=== PATIENT | male | born 1940 | race Caucasian/White ===

== ENCOUNTER 2016-10-31 11:07 | Inpatient (IN) | payer MEDICARE, BC ==
[2016-10-31] MEDS ORDERED: Acetaminophen TAB* 325 MG PO PRN (15:05)
[2016-10-31] MEDS ORDERED: Magnesium Hydroxide LIQ* 30 ML UDC PO PRN (15:05)
[2016-10-31] MEDS ORDERED: Bisacodyl SUPP* 10 MG SUPP PR PRN (15:05)
[2016-10-31] MEDS ORDERED: Dextrose 50% Syringe 50 ML* 25 GM/50 ML SYRINGE IV PUSH PRN (15:18)
[2016-10-31] MEDS ORDERED: oxyCODONE/Acetamin 5/325 MG* TAB PO PRN (15:19)
[2016-10-31] MEDS: Insulin LISPRO* 1 UNITS UNIT SUBCUT SCH ×2 (17:16→20:51)
[2016-10-31] MEDS: Nystatin CREAM* 15 GM TUBE TOPICAL SCH (19:59)
[2016-10-31] MEDS: Docusate CAP* 100 MG PO SCH (20:50)
[2016-10-31] MEDS: Senna TAB PO SCH (20:50)
[2016-10-31] MEDS: Insulin GLARGINE(*) 1 UNITS UNIT SUBCUT SCH (20:50)
[2016-10-31] MEDS: Ferrous Sulfate TAB* 325 MG PO SCH (20:50)
[2016-10-31] MEDS: traZODone TAB* 100 MG PO SCH (20:50)
[2016-10-31] MEDS: Gabapentin CAP(*) 300 MG PO SCH (20:50)
[2016-10-31] MEDS: oxyCODONE/Acetamin 5/325 MG* TAB PO PRN (21:43)
--- NOTE | 2016-10-31 23:15 | HP ---
ADMISSION HISTORY AND PHYSICAL: DATE OF ADMISSION: 10/31/16 REASON FOR ADMISSION: Left hip fracture, status post total hip replacement. HISTORY OF PRESENT ILLNESS: Chris Bae is a 75-year-old white male. He has a medical history significant for diabetes mellitus. In addition, he has a history of nonalcoholic steatohepatitis. He takes chronic prednisone treatment for that. The patient has had difficulties with left hip pain for sometime. He had seen Dr. Benson and failed conservative treatment. It was decided he should be admitted and have a left total hip replacement done 11/19/16. On 10/22/16, he was at his own home. He was leaning forward, felt a sharp pain in his groin , lost his balance and fell on to a small table. Since that time, the pain got gradually worse. By the time he got to 10/25/16, the pain was unbearable. The patient came to the emergency room because of his unbearable pain. The patient had a CT of his abdomen and pelvis showing an acute left hip fracture. Dr. Gaines, the orthopedic surgeon, saw the patient. 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 The patient wished to proceed with a total hip, but unfortunately, he had to wait for his orthopedic surgeon to return. Meanwhile, the patient was noted to be thrombocytopenic and a Hematology consult was done with Dr. Navarro. Dr. Navarro noted that the thrombocytopenia was present since 2009 and that the patient had mild pancytopenia since 2012. 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 It was felt that the patient could have early myelodysplastic syndrome or that he might be pancytopenic secondary to cirrhosis. He felt that the patient could proceed with surgery. The patient was taken to the operating room on 10/29/16. He underwent a left total hip arthroplasty done by Dr. Benson. Postoperatively, the patient was put on Lovenox for DVT prophylaxis. He was noted to be anemic but again, he was anemic preoperatively as well. His platelet counts were stable. The patient was felt to have physical therapy and occupational therapy needs. He is now being admitted for inpatient rehab so that he might return to independent living. PAST MEDICAL HISTORY: In addition to the nonalcoholic hepatitis, the patient has a history of prostate cancer and he did receive Lupron in the past for this. He has a history of diabetes which he normally controls with glipizide and once daily injection of Victoza. He has a history of sleep apnea and obesity. 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 He has a history of depression, gastroesophageal reflux disease, and obesity. He has undergone a rotator cuff repair and he also had a pituitary adenoma, which was resected in 2007. CURRENT MEDICATIONS: Include: 1. Prozac 20 mg daily. 2. He is on allopurinol 200 mg daily. 3. Amlodipine 5 mg daily. 4. Lovenox 40 mg subcutaneously daily. 5. Neurontin 300 mg 3 times a day. 6. Lantus insulin 16 units at bedtime. 7. Humalog sliding scale coverage. 8. Synthroid. 9. Prilosec. 10. Prednisone. 11. Senokot. 12. Trazodone. ALLERGIES: The patient has no known drug allergies. SOCIAL HISTORY: The patient is a nonsmoker, rare drinker. He lives with his in a ranch house. There are 2 steps to enter, but he does have a ramp. His is his healthcare proxy. REVIEW OF SYSTEMS: The patient reports no current shortness of breath or chest pain. PHYSICAL EXAMINATION VITAL SIGNS: The patient's temperature is 98.1, blood pressure is 122/43, pulse 86, respirations 18. HEENT: Extraocular movements are intact. Tongue is midline. NECK: Supple. LUNGS: Sound clear to auscultation bilaterally. HEART: Sounds are regular. S1 and S2 are audible. ABDOMEN: Soft and nontender. EXTREMITIES: Left hip has a wound, which is clean and dry. Trace edema at the left leg. Peripheral pulses are intact. NEUROLOGIC: He has diminished sensation in his feet. Muscle strength is about 4/5 in the left leg. Right leg and upper extremities 5/5. He is awake, alert, and oriented. FUNCTIONAL EXAM: He transfers with min to mod assist. ASSESSMENT: Left hip fracture. PLAN: We are going to integrate him into a comprehensive and therapeutic rehab program with the following goals: 1. Physical Therapy will work with the patient. They are going to work on functional transfer training, ambulation training with a walker. 2. Occupational Therapy will see the patient, work on his activities of daily living including toileting and toilet transfers. 3. Lovenox and probably Coumadin for DVT prophylaxis. 4. Adequate analgesia. 5. For his HUNT, we will continue prednisone 1 mg daily. 6. His bowels will be regulated. 7. Continue Synthroid for hypothyroidism. 8. For diabetes, we will do fingersticks 4 times a day with appropriate insulin coverage. We will continue his Lantus. His is going to bring in his Victoza from home. 9. For depression, we will continue Prozac daily. 10. Pancytopenia: We will continue to consult Hematology as needed. 11. Hypertension: We will continue his amlodipine for now. We may have to add in his enalapril. 12. Family training as appropriate. 13. Home with appropriate services. ESTIMATED LENGTH OF STAY: 10 to 12 days. [id number]/[facility] #: [id number] SOL
[2016-11-01] MEDS: oxyCODONE/Acetamin 5/325 MG* TAB PO PRN ×5 (02:49→21:14)
[2016-11-01] MEDS: Omeprazole CAP* 20 MG PO SCH (06:08)
[2016-11-01] MEDS: Levothyroxine TAB* 150 MCG TAB PO SCH (06:08)
[2016-11-01 06:21] LABS: Hematocrit 26 % (42-52); Hemoglobin 8.5 g/dl (14.0-18.0); Mean Corpuscular HGB Conc 33 g/dl (31-36); Mean Corpuscular Hemoglobin 31 pg (27-31); Mean Corpuscular Volume 94 fL (80-94); Mean Platelet Volume 8 um3 (7.4-10.4); Red Blood Count 2.72 10^6/ul (4.0-5.4); Red Cell Distribution Width 16 % (10.5-15); White Blood Count 3.8 10^3/ul (3.5-10.8)
[2016-11-01 06:31] LABS: Comments Flag Yes
[2016-11-01 06:32] LABS: Add Diff/Slide Review? Slide Review Added
[2016-11-01 06:34] LABS: Albumin 2.7 g/dL (3.2-5.2); BUN/Creatinine Ratio 21.3 (8-20); Calcium 8.2 mg/dL (8.6-10.3); EGFR African American 62.8 (>60); EGFR Non-African American 48.9 (>60); Globulin 2.4 g/dL (2-4); Potassium 4.2 mmol/L (3.5-5.0); Total Bilirubin 0.5 mg/dL (0.2-1.0); Total Protein 5.1 g/dL (6.4-8.9)
[2016-11-01 06:58] LABS: Polychromasia 1+
[2016-11-01] MEDS: Ferrous Sulfate TAB* 325 MG PO SCH ×2 (08:09→21:15)
[2016-11-01] MEDS: FLUoxetine CAP* 20 MG PO SCH (08:09)
[2016-11-01] MEDS: Docusate CAP* 100 MG PO SCH ×2 (08:09→21:14)
[2016-11-01] MEDS: Gabapentin CAP(*) 300 MG PO SCH ×3 (08:09→21:15)
[2016-11-01] MEDS: predniSONE TAB* 1 MG PO SCH (08:09)
[2016-11-01] MEDS: Allopurinol TAB* 100 MG PO SCH (08:09)
[2016-11-01] MEDS: amLODIPine TAB* 5 MG PO SCH (08:09)
[2016-11-01] MEDS: Nystatin CREAM* 15 GM TUBE TOPICAL SCH ×2 (08:11→21:16)
[2016-11-01] MEDS: Insulin LISPRO* 1 UNITS UNIT SUBCUT SCH ×4 (08:11→21:16)
[2016-11-01] MEDS: Enoxaparin(*) 40 MG/0.4 ML SYR SUBCUT SCH (08:12)
--- NOTE | 2016-11-01 12:46 | PMRUTEAM ---
PMRU: Goals Current Status: Nursing: Current Status Skin Deviations [L abdomenal Rash folds] Skin Deviations [Left Hip] Incision Skin Deviations [Coccyx] Other Skin Deviation Description [L open skin along abd. fold to L side abdomenal folds] Skin Deviation Description [ blanchable redness; intact Coccyx] Physical Therapy: Current Status Bed Mobility Assistance Supervision,Contact Guard Assist Transfer Moblility Assistance Supervision Transfer/Bed Mobility Rolling Walker Recommended Devices Ambulation Assistance Supervision Ambulation Assistive Devices Rolling Walker Number of Feet Patient 12' Ambulated Stairs Assistance NT Stairs Recommended Devices Straight Cane,One Rail Number of Stairs 2 Rec Therapy: Current Status Summary of Assessment and Pt. was a new admission - open to conversation. Clinical Impression Pleasant, cooperative, and talkative throughout. Pt. identifies with leisure activities and when asked if he enjoys his life, his response was " most of the time". Pt. was open to continued visits. Treatment Goals Pt. will engage in leisure activities while on the unit. Treatment Plan Provide RT services and encourage involvement. Social Work: Current Status Discharge Plan return home with home care svs and family support Potential for Family Training pt's is involved and supportive Anticipated Discharge Home Destination Discharge With home care svs and family support OCCUPATIONAL THERAPY: Upper body dressing set up, lower body dressing mod assist , toileting max asssit, grooming set up, feeding independent, toilet transfers mod assist Goals: Physical Therapy: Updated Goals Transfer/Bed Mobility Rolling Walker Independent Recommended Devices Ambulation Independent 150 feet Nutrition: Goals Intervention Goals 1. adequate po intake to support post-op healing without contributing to excess wt gain 2. adequate glycemic control in setting of low- dose steroid tx 3. return of normal bowel pattern; no c/o constipation (or diarrhea) 4. renal labs at baseline per hx CKD stg 3b Social Work: Goals Discharge Plan return home with home care svs and family support Potential for Family Training pt's is involved and supportive Anticipated Discharge Home Destination Discharge With home care svs and family support OCCUPATIONAL THERAPY: Modified Independent ADLs Care Plan: Care Plan Coping/Psych-Improve/Maintain Start: 11/01/16 00:16 Freq: QSHIFT Status: Active Target: Activity Type Activity Date Activity User E-Sign Co-Sign Detail Recorded Client Recorded Date Recorded By Document 11/01/16 00:16 [id number] 11/01/16 00:19 [id number] 11/01/16 00:16 PMRU Outcome: Coping/Psychosocial Coping Outcome/Goals Verbalization of Acceptance of Rehab Admit Verbalization of Sense of Control Over Health Status Utilization of Appropriate Problem Solving Techniques Willingness to Participate in Treatment Plan and Basic Needs Utilization of Available Support Systems Absence of Destructive Behavior to Self/Others Psychosocial Outcome/Goals Maintain/ Improve Emotional Health Demonstrates Knowledge of Healthy Coping Mechanisms Available Cooperate/ Participate in Plan DVT Prophylaxis- Improve/Maintain Start: 11/01/16 00:16 Freq: QSHIFT Status: Active Target: Activity Type Activity Date Activity User E-Sign Co-Sign Detail Recorded Client Recorded Date Recorded By Document 11/01/16 00:16 [id number] 11/01/16 00: [id number] 11/01/16 00:16 PMRU Outcome: DVT Prophylaxis Outcome/Goals Remains Free of DVT TEDS Stockings on Every AM, Off at HS Discharge Planning - Improve/Maintain Start: 11/01/16 00:16 Freq: QSHIFT Status: Active Target: Activity Type Activity Date Activity User E-Sign Co-Sign Detail Recorded Client Recorded Date Recorded By Document 11/01/16 00:16 [id number] 11/01/16 00: [id number] 11/01/16 00:16 PMRU Outcome: Discharge Planning Update Patient Family No Outcome/Goals Demonstrates Understanding of Discharge Plan Education-Improve/Maintain Start: 11/01/16 00:16 Freq: QSHIFT Status: Active Target: Activity Type Activity Date Activity User E-Sign Co-Sign Detail Recorded Client Recorded Date Recorded By Document 11/01/16 00:16 [id number] 11/01/16 00: [id number] 11/01/16 00:16 PMRU Outcome: Education Outcome/Goals Demonstrate/ Verbalize Understanding of Written Discharge Instructions Encourage Questions Medication Administration Start: 11/01/16 00:16 Freq: QSHIFT Status: Active Target: Activity Type Activity Date Activity User E-Sign Co-Sign Detail Recorded Client Recorded Date Recorded By Document 11/01/16 00:16 [id number] 11/01/16 00:19 [id number] 11/01/16 00:16 PMRU Outcome: Medication Administration Assess Patient Knowledge/Teach Med No Education for all Meds Outcome/Goals Patient Independent with Medication Administration at Home Demonstrates Lovenox Administration Is Patient Going Home on Lovenox? No Metabolic Status- Improve/Maintain Start: 11/01/16 00:16 Freq: QSHIFT Status: Active Target: Activity Type Activity Date Activity User E-Sign Co-Sign Detail Recorded Client Recorded Date Recorded By Document 11/01/16 00:16 [id number] 11/01/16 00:19 [id number] 11/01/16 00:16 PMRU Outcome: Metabolic Status Have Fingersticks Been Ordered Yes Fingerstick Order Frequency AC & HS Outcome/Goals Maintain/ Improve Metabolic Status Demonstrate Knowledge of Prevention/ Treatment of Metabolic Imbalances Mobility- Improve/Maintain Start: 10/31/16 14:38 Freq: QSHIFT Status: Active Target: Activity Type Activity Date Activity User E-Sign Co-Sign Detail Recorded Client Recorded Date Recorded By Document 11/01/16 12:11 [id number] 11/01/16 12:12 [id number] 11/01/16 12:11 PMRU Outcome: Mobility Physical Therapy Evaluation and Yes Treatment Activity OOB with Assistance Yes WBAT Yes Device Yes Assistance Yes Patient to be seen 5x/wk for 60-120 min/ Therex day for: Mobility Training Gait Training Balance Outcome/Goals Maintain/ Achieve Baseline Mobility Status Improve Mobility Status Demonstrates Proper Use of Assistive Devices Free from Complications of Immobility Progression Toward Outcome/Goals Progressing Bed Mobility Yes: Independent Transfers Yes: Modified Independent with RW Gait x ft Yes: Modified Independent 150 ' with RW Up/Down Stairs Yes: Independent 2 steps 1 rail, cane With HEP Yes: Independent Neurological- Improve/Maintain Start: 11/01/16 00:16 Freq: QSHIFT Status: Active Target: Activity Type Activity Date Activity User E-Sign Co-Sign Detail Recorded Client Recorded Date Recorded By Document 11/01/16 00:16 [id number] 11/01/16 00:19 [id number] 11/01/16 00:16 PMRU Outcome: Neurological Weakness/Aphasia Weakness Left Side Outcome/Goals Maintain/ Achieve Baseline Neurological Status Maintain/ Improve Strength/ROM Pain/Comfort- Improve/Maintain Start: 11/01/16 00:16 Freq: QSHIFT Status: Active Target: Activity Type Activity Date Activity User E-Sign Co-Sign Detail Recorded Client Recorded Date Recorded By Document 11/01/16 00:16 [id number] 11/01/16 00:19 [id number] 11/01/16 00:16 PMRU Outcome: Pain/Comfort Outcome/Goals Demonstrates Knowledge and Use of Available Comfort Measures Achieves Acceptable Comfort/Pain Level as Determined by Patient/Condit Maintain Comfort Level Allowing Patient to Fully Participate in Rehab Respiratory - Improve/Maintain Start: 11/01/16 00:16 Freq: QSHIFT Status: Active Target: Activity Type Activity Date Activity User E-Sign Co-Sign Detail Recorded Client Recorded Date Recorded By Document 11/01/16 00:16 [id number] 11/01/16 00:19 [id number] 11/01/16 00:16 PMRU Outcome: Respiratory Does Patient Have a Trach No Outcome/Goals Maintain/ Improve O2 Sat per MD Order Medicine Note: Length of Stay: 1 week Anticipated Discharge Destination: Home Tentative Discharge Date: November 08, 2015 Discharged to: Home
[2016-11-01] MEDS: Senna TAB PO SCH (21:15)
[2016-11-01] MEDS: oxyCODONE SR TAB(*) 20 MG TAB.SR PO SCH (21:15)
[2016-11-01] MEDS: traZODone TAB* 100 MG PO SCH (21:15)
[2016-11-01] MEDS: Insulin GLARGINE(*) 1 UNITS UNIT SUBCUT SCH (21:16)
[2016-11-02] MEDS: oxyCODONE/Acetamin 5/325 MG* TAB PO PRN ×4 (01:18→19:20)
[2016-11-02] MEDS: Omeprazole CAP* 20 MG PO SCH (06:29)
[2016-11-02] MEDS: Levothyroxine TAB* 150 MCG TAB PO SCH (06:29)
[2016-11-02] MEDS: predniSONE TAB* 1 MG PO SCH (07:51)
[2016-11-02] MEDS: Gabapentin CAP(*) 300 MG PO SCH ×3 (07:51→20:54)
[2016-11-02] MEDS: amLODIPine TAB* 5 MG PO SCH (07:51)
[2016-11-02] MEDS: FLUoxetine CAP* 20 MG PO SCH (07:51)
[2016-11-02] MEDS: Docusate CAP* 100 MG PO SCH ×2 (07:51→20:54)
[2016-11-02] MEDS: Allopurinol TAB* 100 MG PO SCH (07:52)
[2016-11-02] MEDS: Ferrous Sulfate TAB* 325 MG PO SCH ×2 (07:52→20:53)
[2016-11-02] MEDS: oxyCODONE SR TAB(*) 20 MG TAB.SR PO SCH ×2 (07:53→20:54)
[2016-11-02] MEDS: Insulin LISPRO* 1 UNITS UNIT SUBCUT SCH ×4 (07:54→20:55)
[2016-11-02] MEDS: Enoxaparin(*) 40 MG/0.4 ML SYR SUBCUT SCH (07:55)
[2016-11-02] MEDS: Nystatin CREAM* 15 GM TUBE TOPICAL SCH ×2 (09:20→20:55)
[2016-11-02] MEDS: Senna TAB PO SCH (20:54)
[2016-11-02] MEDS: traZODone TAB* 100 MG PO SCH (20:55)
[2016-11-03] MEDS: oxyCODONE/Acetamin 5/325 MG* TAB PO PRN ×4 (05:26→20:44)
[2016-11-03] MEDS: Omeprazole CAP* 20 MG PO SCH (05:26)
[2016-11-03] MEDS: Levothyroxine TAB* 150 MCG TAB PO SCH (05:26)
[2016-11-03 08:00] LABS: Hematocrit 25 % (42-52); Hemoglobin 8.2 g/dl (14.0-18.0); Mean Corpuscular HGB Conc 33 g/dl (31-36); Mean Corpuscular Hemoglobin 31 pg (27-31); Mean Corpuscular Volume 94 fL (80-94); Mean Platelet Volume 8 um3 (7.4-10.4); Red Blood Count 2.63 10^6/ul (4.0-5.4); Red Cell Distribution Width 16 % (10.5-15)
[2016-11-03 08:01] LABS: Comments Flag Yes
[2016-11-03 08:02] LABS: White Blood Count 3.4 10^3/ul (3.5-10.8)
[2016-11-03] MEDS: Ferrous Sulfate TAB* 325 MG PO SCH ×2 (08:49→20:43)
[2016-11-03] MEDS: amLODIPine TAB* 5 MG PO SCH (08:50)
[2016-11-03] MEDS: Enoxaparin(*) 40 MG/0.4 ML SYR SUBCUT SCH (08:50)
[2016-11-03] MEDS: Gabapentin CAP(*) 300 MG PO SCH ×3 (08:50→20:44)
[2016-11-03] MEDS: FLUoxetine CAP* 20 MG PO SCH (08:50)
[2016-11-03] MEDS: Docusate CAP* 100 MG PO SCH ×2 (08:50→20:44)
[2016-11-03] MEDS: Allopurinol TAB* 100 MG PO SCH (08:51)
[2016-11-03] MEDS: PTO: Liraglutide (NF) 18 MG/3 ML SUBCUT SCH (08:51)
[2016-11-03] MEDS: glyBURIDE TAB* 2.5 MG PO SCH ×2 (08:51→20:43)
[2016-11-03] MEDS: oxyCODONE SR TAB(*) 20 MG TAB.SR PO SCH ×2 (08:54→20:45)
[2016-11-03] MEDS: predniSONE TAB* 1 MG PO SCH (08:55)
[2016-11-03] MEDS: Nystatin CREAM* 15 GM TUBE TOPICAL SCH ×2 (08:55→20:45)
[2016-11-03] MEDS: Senna TAB PO SCH (20:44)
[2016-11-03] MEDS: traZODone TAB* 100 MG PO SCH (20:45)
[2016-11-04] MEDS: Levothyroxine TAB* 150 MCG TAB PO SCH (05:47)
[2016-11-04] MEDS: oxyCODONE/Acetamin 5/325 MG* TAB PO PRN ×4 (05:47→18:30)
[2016-11-04] MEDS: Omeprazole CAP* 20 MG PO SCH (05:48)
[2016-11-04] MEDS: Gabapentin CAP(*) 300 MG PO SCH ×3 (08:04→20:58)
[2016-11-04] MEDS: Ferrous Sulfate TAB* 325 MG PO SCH ×2 (08:04→20:57)
[2016-11-04] MEDS: FLUoxetine CAP* 20 MG PO SCH (08:04)
[2016-11-04] MEDS: predniSONE TAB* 1 MG PO SCH (08:04)
[2016-11-04] MEDS: Docusate CAP* 100 MG PO SCH ×2 (08:05→20:58)
[2016-11-04] MEDS: amLODIPine TAB* 5 MG PO SCH (08:05)
[2016-11-04] MEDS: glyBURIDE TAB* 2.5 MG PO SCH (08:05)
[2016-11-04] MEDS: oxyCODONE SR TAB(*) 20 MG TAB.SR PO SCH ×2 (08:05→20:57)
[2016-11-04] MEDS: Allopurinol TAB* 100 MG PO SCH (08:05)
[2016-11-04] MEDS: Enoxaparin(*) 40 MG/0.4 ML SYR SUBCUT SCH (08:07)
[2016-11-04] MEDS: PTO: Liraglutide (NF) 18 MG/3 ML SUBCUT SCH (08:09)
[2016-11-04] MEDS: Nystatin CREAM* 15 GM TUBE TOPICAL SCH ×2 (08:44→22:29)
[2016-11-04] MEDS ORDERED: glyBURIDE TAB* 5 MG PO SCH (16:06)
[2016-11-04] MEDS: glyBURIDE TAB* 5 MG PO SCH (17:00)
[2016-11-04] MEDS: traZODone TAB* 100 MG PO SCH (20:57)
[2016-11-04] MEDS: Senna TAB PO SCH (20:58)
[2016-11-05] MEDS: Levothyroxine TAB* 150 MCG TAB PO SCH (06:23)
[2016-11-05] MEDS: Omeprazole CAP* 20 MG PO SCH (06:23)
[2016-11-05] MEDS: Ferrous Sulfate TAB* 325 MG PO SCH ×2 (08:10→21:47)
[2016-11-05] MEDS: amLODIPine TAB* 5 MG PO SCH (08:10)
[2016-11-05] MEDS: oxyCODONE/Acetamin 5/325 MG* TAB PO PRN ×4 (08:10→23:02)
[2016-11-05] MEDS: glyBURIDE TAB* 5 MG PO SCH ×2 (08:11→17:17)
[2016-11-05] MEDS: Gabapentin CAP(*) 300 MG PO SCH ×3 (08:11→21:47)
[2016-11-05] MEDS: Docusate CAP* 100 MG PO SCH ×2 (08:11→21:48)
[2016-11-05] MEDS: predniSONE TAB* 1 MG PO SCH (08:11)
[2016-11-05] MEDS: FLUoxetine CAP* 20 MG PO SCH (08:11)
[2016-11-05] MEDS: Allopurinol TAB* 100 MG PO SCH (08:12)
[2016-11-05] MEDS: oxyCODONE SR TAB(*) 20 MG TAB.SR PO SCH ×2 (08:12→21:28)
[2016-11-05] MEDS: PTO: Liraglutide (NF) 18 MG/3 ML SUBCUT SCH (08:14)
[2016-11-05] MEDS: Enoxaparin(*) 40 MG/0.4 ML SYR SUBCUT SCH (09:09)
[2016-11-05] MEDS: Nystatin CREAM* 15 GM TUBE TOPICAL SCH ×2 (09:09→22:02)
[2016-11-05] MEDS ORDERED: Senna TAB PO PRN (15:57)
[2016-11-05] MEDS: traZODone TAB* 100 MG PO SCH (21:47)
[2016-11-06] MEDS: Levothyroxine TAB* 150 MCG TAB PO SCH (06:26)
[2016-11-06] MEDS: oxyCODONE/Acetamin 5/325 MG* TAB PO PRN ×3 (06:26→17:35)
[2016-11-06] MEDS: Omeprazole CAP* 20 MG PO SCH (06:26)
[2016-11-06] MEDS: Polyethylene Glycol 3350* 17 GM PACKET PO SCH (08:09)
[2016-11-06] MEDS: Ferrous Sulfate TAB* 325 MG PO SCH ×2 (08:10→21:29)
[2016-11-06] MEDS: Aspirin EC TAB* 325 MG PO SCH (08:10)
[2016-11-06] MEDS: Docusate CAP* 100 MG PO SCH ×2 (08:10→20:43)
[2016-11-06] MEDS: amLODIPine TAB* 5 MG PO SCH (08:11)
[2016-11-06] MEDS: Gabapentin CAP(*) 300 MG PO SCH ×3 (08:11→20:43)
[2016-11-06] MEDS: glyBURIDE TAB* 5 MG PO SCH (08:11)
[2016-11-06] MEDS: FLUoxetine CAP* 20 MG PO SCH (08:11)
[2016-11-06] MEDS: Allopurinol TAB* 100 MG PO SCH (08:11)
[2016-11-06] MEDS: predniSONE TAB* 1 MG PO SCH (08:11)
[2016-11-06] MEDS: oxyCODONE SR TAB(*) 20 MG TAB.SR PO SCH ×2 (08:12→20:43)
[2016-11-06] MEDS: Enoxaparin(*) 40 MG/0.4 ML SYR SUBCUT SCH (08:14)
[2016-11-06] MEDS: PTO: Liraglutide (NF) 18 MG/3 ML SUBCUT SCH (08:16)
[2016-11-06] MEDS: Nystatin CREAM* 15 GM TUBE TOPICAL SCH ×2 (09:49→20:44)
[2016-11-06] MEDS ORDERED: glyBURIDE TAB* 2.5 MG PO SCH (14:56)
[2016-11-06] MEDS: traZODone TAB* 100 MG PO SCH (20:43)
[2016-11-07] MEDS: oxyCODONE/Acetamin 5/325 MG* TAB PO PRN ×3 (05:20→13:31)
[2016-11-07] MEDS: Levothyroxine TAB* 150 MCG TAB PO SCH (05:21)
[2016-11-07] MEDS: Omeprazole CAP* 20 MG PO SCH (05:21)
[2016-11-07 05:45] VITALS: BP 126/61
[2016-11-07 07:51] LABS: Hematocrit 24 % (42-52); Mean Corpuscular HGB Conc 33 g/dl (31-36); Mean Corpuscular Hemoglobin 31 pg (27-31); Mean Corpuscular Volume 94 fL (80-94); Mean Platelet Volume 7 um3 (7.4-10.4); Red Blood Count 2.58 10^6/ul (4.0-5.4); Red Cell Distribution Width 16 % (10.5-15); White Blood Count 3.6 10^3/ul (3.5-10.8)
[2016-11-07] MEDS: Polyethylene Glycol 3350* 17 GM PACKET PO SCH (07:51)
[2016-11-07] MEDS: FLUoxetine CAP* 20 MG PO SCH (07:53)
[2016-11-07] MEDS: Ferrous Sulfate TAB* 325 MG PO SCH (07:54)
[2016-11-07] MEDS: Docusate CAP* 100 MG PO SCH (07:54)
[2016-11-07] MEDS: Aspirin EC TAB* 325 MG PO SCH (07:54)
[2016-11-07] MEDS: predniSONE TAB* 1 MG PO SCH (07:54)
[2016-11-07] MEDS: oxyCODONE SR TAB(*) 20 MG TAB.SR PO SCH (07:54)
[2016-11-07] MEDS: Gabapentin CAP(*) 300 MG PO SCH (07:54)
[2016-11-07] MEDS: Allopurinol TAB* 100 MG PO SCH (07:54)
[2016-11-07] MEDS: amLODIPine TAB* 5 MG PO SCH (07:54)
[2016-11-07] MEDS: Nystatin CREAM* 15 GM TUBE TOPICAL SCH (07:56)
[2016-11-07] MEDS: Enoxaparin(*) 40 MG/0.4 ML SYR SUBCUT SCH (07:56)
[2016-11-07] MEDS: PTO: Liraglutide (NF) 18 MG/3 ML SUBCUT SCH (07:58)
[2016-11-07] MEDS ORDERED: glipiZIDE TAB* 5 MG PO SCH (08:00)
--- NOTE | 2016-11-08 19:30 | DS ---
DISCHARGE SUMMARY: DATE OF ADMISSION: 10/31/16 DATE OF DISCHARGE: 11/07/16 DISCHARGE DIAGNOSES: 1. Left hip fracture. 2. Status post total hip replacement. 3. Nonalcoholic steatohepatitis. 4. Diabetes mellitus. 5. Prostate cancer. 6. Gastroesophageal reflux disease. 7. Depression. 8. Pancytopenia. 9. Pituitary adenoma, remote. HISTORY OF PRESENT ILLNESS: For a complete history of the events leading up to his rehab stay, please see the history and physical dictated by me on 10/31/16. While on the rehab unit, the patient's hemoglobin and hematocrit remained stable in the 8/24 range. He was maintained on Lovenox for DVT prophylaxis. His renal function appeared to be stable. The patient was restarted on normal diabetes medications, Victoza and glipizide. Initially, he was given glyburide but this was changed back to glipizide. The patient's blood sugars were in good control. The patient was seen by both physical and occupational therapy, and made good gains in both disciplines. With physical therapy at the time of admission, the patient required min assist for transfers. He was able to ambulate about 5 feet with contact guard. With occupational therapy, he was min assist for toileting and toilet transfers. By the time of discharge, the patient was independently ambulating a 150 feet, independently going up and down 5 steps, independent with his activities of daily living. The patient was discharge home on 11/07/16. DISCHARGE DIET: Consistent carbohydrate. DISCHARGE MEDICATIONS: 1. Victoza 1.2 mg subcutaneously daily. 2. OxyContin 20 mg every 12 hours for 2 weeks. 3. Percocet 1 to 2 tablets every 4 hours as needed. 4. Prednisone 1 mg orally daily. 5. Trazodone 100 mg at bedtime. 6. Aspirin 325 mg daily for 2 weeks. 7. Glipizide 2.5 mg twice a day. 8. Amlodipine 5 mg daily. 9. Zantac 150 mg twice a day. 10. [place]-3 fatty acids 1200 mg twice daily. 11. Neurontin 300 mg 3 times a day. 12. Synthroid 150 mcg daily. 13. Prozac 20 mg daily. 14. Vitamin B12 250 mcg daily. SERVICES AFTER DISCHARGE: Through [facility] He will have home nursing, home physical therapy, and a home health aide. His ilan can be removed on November 11. FOLLOWUP: Follow up with Dr. Kentrell Benson in one month. He will also follow up with Dr. Jose Burgos from the [place] system. CC: Dr. Jose Burgos* [id number]/[facility] #: [id number] MTDD
== END 2016-11-07 13:30 | disposition home or self-care (01) | DRG 560 ==
LOC: PMRU 13:00
PROVIDERS: ADMIT Physical Medicine & Rehabilitation; ATTEND Physical Medicine & Rehabilitation
PROC: F07Z5ZZ Bed Mobility Treatment (ICD-10-PCS; principal; 2016-10-31)
PROC: F07Z8ZZ Transfer Training Treatment (ICD-10-PCS; 2016-10-31)
PROC: F07Z9ZZ Gait Training/Functional Ambulation Treatment (ICD-10-PCS; 2016-10-31)
PROC: F08Z0ZZ Bathing/Showering Techniques Treatment (ICD-10-PCS; 2016-10-31)
PROC: F08Z1ZZ Dressing Techniques Treatment (ICD-10-PCS; 2016-10-31)
DX: S72.002D Fracture of unspecified part of neck of left femur, subsequent encounter for closed fracture with routine healing (principal); D61.818 Other pancytopenia; E11.22 Type 2 diabetes mellitus with diabetic chronic kidney disease; E11.42 Type 2 diabetes mellitus with diabetic polyneuropathy; W18.30XD Fall on same level, unspecified, subsequent encounter; K75.89 Other specified inflammatory liver diseases; K21.9 Gastro-esophageal reflux disease without esophagitis; F32.9 Major depressive disorder, single episode, unspecified; D35.2 Benign neoplasm of pituitary gland; I12.9 Hypertensive chronic kidney disease with stage 1 through stage 4 chronic kidney disease, or unspecified chronic kidney disease; N18.2 Chronic kidney disease, stage 2 (mild); Z85.46 Personal history of malignant neoplasm of prostate; Z79.84 Long term (current) use of oral hypoglycemic drugs; Z96.642 Presence of left artificial hip joint
CPT/HCPCS: 36415; 80053; 85025; 85027; A9270-GY; J1650

== ENCOUNTER 2017-08-28 07:02 | Day surgery (SDC) | payer MEDICARE, BC ==
[~2017-08-28 07:02] MED LIST: Buffered Lidocaine 0.9% SYRIN* 5 ML/SYR SYRINGE INTRADERM ONE; Bupivacaine 0.25% SDV* 30 ML ONE
[2017-08-28] MEDS ORDERED: Buffered Lidocaine 0.9% SYRIN* 5 ML/SYR SYRINGE ONE (07:36)
[2017-08-28] MEDS ORDERED: fentaNYL* 50 MCG/ML 2 ML VIAL (100 MCG VIAL) ONE (07:52)
[2017-08-28] MEDS ORDERED: Ketorolac INJ* 30 MG/ML 1 ML VIAL ONE (07:52)
[2017-08-28] MEDS ORDERED: Dexamethasone IV* 4 MG/ML 1 ML (4 MG) ONE (07:52)
[2017-08-28] MEDS ORDERED: Midazolam* 1 MG/ML 5 ML VIAL (5 MG) ONE (07:54)
[2017-08-28] MEDS ORDERED: Bupivacaine 0.25% SDV* 30 ML ONE (08:15)
[2017-08-28] MEDS ORDERED: fentaNYL* 50 MCG/ML 2 ML VIAL (100 MCG VIAL) IV PRN (08:19)
[2017-08-28] MEDS ORDERED: oxyCODONE/Acetamin 5/325 MG* TAB PO PRN (08:19)
[2017-08-28] MEDS ORDERED: DiMENhydriNATE IV* 50 MG/ML VIAL IV PUSH PRN (08:19)
[2017-08-28] MEDS ORDERED: KETAMINE HCL* 50 MG/ML 10 ML VIAL ONE (08:30)
[2017-08-28] MEDS ORDERED: ceFAZolin 2 GM PREMIX (*) 2 GM/50 ML BAG IVPB ONE (08:34)
[2017-08-28] MEDS ORDERED: ceFAZolin 1 GM VIAL(*) ONE (08:36)
[2017-08-28] MEDS ORDERED: Propofol* 10 MG/ML 20 ML BTL IV PUSH ONE (08:48)
[2017-08-28 10:30] VITALS: BP 125/66
--- NOTE | 2017-08-29 01:10 | OP ---
OPERATIVE REPORT: DATE OF OPERATION: 08/28/17 - [place] DATE OF : 38 SURGEON: Carlo Trent MD CERTIFIED SOCIAL WORKERS IN HEALTH CARE: YARELIS Collins An medical library assistant was needed for the entirety of the procedure to aid in positioning of the arm and retraction. ANESTHESIOLOGIST: Dr. Powell. ANESTHESIA: Local MAC. PRE-OP DIAGNOSIS: Right carpal and cubital tunnel syndrome. POST-OP DIAGNOSIS: Right carpal and cubital tunnel syndrome. OPERATIVE PROCEDURE: 1. Right open carpal tunnel release. 2. Right in situ cubital tunnel release. INDICATIONS: Chris has had progressive disease. He has atrophy. He has constant numbness and tingling. It is really bothering him, having the lack of sensation in the night time symptoms and he is looking to see what relief he can get. He understands he is likely to have incomplete relief given the severity of his disease. ESTIMATED BLOOD LOSS: 5 mL. COMPLICATIONS: None. FINDINGS: As expected. DESCRIPTION OF PROCEDURE: Chris was seen in the preoperative holding area. The correct site, side and procedure were identified. We came back to the operating room where he got some anesthesia and I infiltrated the operative areas with 0.25% plain Marcaine. We then prepped and draped the arm in the usual fashion and time- out was performed. I began by exsanguinating the arm with Esmarch and inflating the tourniquet to 250 mmHg. A standard 2 to 3 cm longitudinal incision was made in the typical location for an open carpal release. Dissection was carried down through the subcutaneous tissue in the palmar fascia. The transverse carpal ligament was visualized and released just off the radial aspect of the hook of the hamate. I completed the release distally. I then came proximally where I released the fascia and subcutaneous tissue superficial to the ligament. I then placed a Cristiana retractor, and under direct visualization, released the remainder of the transverse carpal ligament and distal antebrachial fascia with the tenotomy scissors. I then checked the release and everything looked good, so we irrigated out the wound. The skin was closed with 4-0 nylon suture. I then turned our attention to the elbow. A curvilinear incision was made centered over the Cross's ligament and extending proximally and distally in line with the ulnar nerve. Dissection was carried down through subcutaneous tissue and once the fascial plane was developed, I went ahead and started my release just distal to Cross's ligament. I opened up the superficial FCU fascia. I then split the two heads of the FCU and then released a very prominent subfascial layer to expose the nerve. I then came proximally and released Cross's ligament. I then came proximal to release the fascia overlying the ulnar nerve. I also released the intermuscular septum. The release was carried out well past 8 cm proximal to the medial epicondyle. I then checked the nerve, it did not subluxate at all. I flexed and extended the elbow multiple times. I checked the decompression proximally and distally. I went ahead and obtained hemostasis with Bovie cautery. Once everything was looking good, I irrigated out the wound. Subcutaneous tissue was reapproximated with 3-0 Vicryl suture. The skin was closed with 3-0 nylon suture. The wounds were dressed with Xeroform, 4x4, sterile Webril and ABD at the elbow, and Yosef bandage. He was then woken up and taken to the recovery room in stable condition. [id number]/[facility] #: [id number] SOL
== END 2017-08-28 10:25 | disposition home or self-care (01) ==
LOC: OREAST 07:02
PROVIDERS: ATTEND Orthopaedic Surgery Hand Surgery
DX: G56.03 Carpal tunnel syndrome, bilateral upper limbs (principal); G56.21 Lesion of ulnar nerve, right upper limb; I10 Essential (primary) hypertension; E11.42 Type 2 diabetes mellitus with diabetic polyneuropathy; Z79.84 Long term (current) use of oral hypoglycemic drugs; Z85.46 Personal history of malignant neoplasm of prostate
CPT/HCPCS: J0690; J1100; J1885; J2250; J2704; J3010

== ENCOUNTER 2017-10-02 09:07 | Day surgery (SDC) | payer MEDICARE, BC ==
[~2017-10-02 09:07] MED LIST changes: -Bupivacaine 0.25% SDV* 30 ML ONE
[2017-10-02] MEDS ORDERED: ceFAZolin 2 GM PREMIX (*) 0 GM/0 ML BAG IVPB ONE (09:13)
[2017-10-02] MEDS ORDERED: ceFAZolin 1 GM VIAL(*) ONE (09:34)
[2017-10-02] MEDS ORDERED: ceFAZolin 2 GM PREMIX (*) 2 GM/50 ML BAG IVPB ONE (09:34)
[2017-10-02] MEDS ORDERED: Midazolam* 1 MG/ML 2 ML VIAL (2 MG) ONE ×3 (12:12→13:25)
[2017-10-02] MEDS ORDERED: fentaNYL* 50 MCG/ML 2 ML VIAL (100 MCG VIAL) ONE ×3 (12:12→13:26)
[2017-10-02] MEDS ORDERED: Bupivacaine 0.25% SDV* 30 ML ONE ×3 (12:16→12:58)
[2017-10-02] MEDS ORDERED: KETAMINE HCL* 50 MG/ML 10 ML VIAL ONE (13:20)
[2017-10-02 14:33] VITALS: BP 128/70
--- NOTE | 2017-10-04 05:58 | OP ---
OPERATIVE REPORT: DATE OF OPERATION: 10/02/17 DATE OF : 38 SURGEON: Carlo Trent MD [employer] REMOVAL SUPERVISOR: YARELIS Collins An assistant wrestling coach was needed for the entirety of the procedure to aid in positioning of the arm and retrac tion. ANESTHESIOLOGIST: Dr. Lr. ANESTHESIA: Local MAC. PRE-OP DIAGNOSES: 1. Left recurrent carpal tunnel syndrome, status post prior release. 2. Left ulnar nerve compression at the wrist and elbow. POST-OP DIAGNOSES: 1. Left recurrent carpal tunnel syndrome, status post prior release. 2. Left ulnar nerve compression at the wrist and elbow. OPERATIVE PROCEDURE: 1. Revision left carpal tunnel release. 2. Left ulnar nerve decompression of the wrist. 3. Left in situ cubital tunnel release. INDICATIONS: Chris has severe ulnar nerve compression on the left with atrophy and weakness and cons tant numbness and tingling in the ring and small fingers. He has had recurrent numbness and tingling in the radial 3 digits after a carpal tunnel release done many years ago. I talked to him about his options. He wanted to have proceed with a left revision carpal tunnel release, ulnar nerve decompre ssion at the wrist and ulnar nerve decompression at the elbow. ESTIMATED BLOOD LOSS: 5 mL. COMPLICATIONS: None. FINDINGS: Severe compression of the ulnar nerve right and the cubital tunnel behind deep Cross's l igament. DESCRIPTION OF PROCEDURE: Chris was seen in the preoperative holding area. The correct side, site, and procedure were identified. We came back to the operating room. The operative area was infiltrat ed with 50 cc of 0.25% plain Marcaine. The arm was then prepped and draped in the usual fashion. A time-out was performed. I exsanguinated the arm with the Esmarch and the tourniquet was inflated to 250 mmHg. I then reopene d his prior carpal tunnel release and brought this back across the wrist flexion crease in Jenae ty pe fashion. Dissection was carried down and the carpal tunnel release was performed. Releasing the transverse carpal ligament just off the radial aspect of the hook of the hamate. This was continued proximally and distally until there was absolutely no compression on the median nerve. I then came ulnar to the hook of the hamate and released Guyon's canal. I started this distally and followed the ulnar artery back proximally until the fascia overlying the neurovascular bundle was com pletely released, represent perforating vessels that I had to ligate. I then gently retracted the ul mandi nerve and identified the motor branches dives deep to the hypothenar fascia and released that fas aly so as to decompress the motor branch completely. Once this was all done, I irrigated out the are a, checked again. There was absolutely no compression on the nerve. Hemostasis was obtained. The w ound was closed with 3-0 Monocryl suture. I then came to the elbow and abducted and externally rotated the shoulder. A curvilinear incision wa s made centered right over Cross's ligament and in line with the ulnar nerve. Dissection was onofre ed down using the Bovie cautery proximally and tenotomy scissors distally. I went ahead and encounte red the ulnar nerve proximal to Cross's ligament and completed the decompression there. I then cam e distal and released the Cross's ligament. There was a 1-cm segment where the nerve was severely compressed and I went ahead and released all that area. I then came distally and released the FCU fa scia, split the two edges of the FCU and was released to the subfascial layer. The motor branches to the flexor carpi ulnaris heads were identified and preserved. I neurolysed the nerve. Again, there was 1-cm segment where the nerve was severely compressed. I then went ahead and flexed and extended the elbow, the nerve did not subluxate, so I went ahead and irrigated out the wound. Subcutaneous t issue was reapproximated with 3-0 Vicryl. Skin was closed with 3-0 Monocryl suture and Steri-Strips. I had obtained hemostasis with the Bovie prior to closing the wound. We had briefly deflated the to urniquet after the cubital tunnel release was completed just to let him have a little bit of relief f rom the tourniquet pressures. He was starting to get uncomfortable, but I did reinflate the tourniqu et for closure. Once the wound was closed, we dressed the wounds with Xeroform, 4x4s, and ABD at the elbow, sterile Webril and then an Yosef bandage was applied. Tourniquet was deflated and hand pinked up immediately. He was then taken to the recovery room in stable condition. [id number]/[facility] #: [id number]
== END 2017-10-02 14:33 | disposition home or self-care (01) ==
LOC: OREAST 09:07
PROVIDERS: ATTEND Orthopaedic Surgery Hand Surgery
DX: G56.03 Carpal tunnel syndrome, bilateral upper limbs (principal); G56.23 Lesion of ulnar nerve, bilateral upper limbs; F32.9 Major depressive disorder, single episode, unspecified; E11.40 Type 2 diabetes mellitus with diabetic neuropathy, unspecified; I10 Essential (primary) hypertension; M19.032 Primary osteoarthritis, left wrist; M19.031 Primary osteoarthritis, right wrist; M12.811 Other specific arthropathies, not elsewhere classified, right shoulder; M12.812 Other specific arthropathies, not elsewhere classified, left shoulder; E66.9 Obesity, unspecified; Z68.44 Body mass index [BMI] 60.0-69.9, adult; G47.33 Obstructive sleep apnea (adult) (pediatric); E03.9 Hypothyroidism, unspecified; M10.9 Gout, unspecified
CPT/HCPCS: J0690; J2250; J3010

== ENCOUNTER 2017-11-05 06:10 | Inpatient (IN) | payer MEDICARE, BC ==
--- NOTE | 2017-10-28 16:35 | HP ---
PREOPERATIVE HISTORY AND PHYSICAL: DATE OF ADMISSION/SURGERY: 11/05/17 DATE OF OFFICE VISIT: 10/28/17 ATTENDING SURGEON: Dr. Anabella Huston * (DICTATED BY YARELIS KERN) PROCEDURE: Right total shoulder reverse. CHIEF COMPLAINT: Right shoulder pain. HISTORY OF PRESENT ILLNESS: Chris is a 76-year-old right-hand dominant male, who follows up for right shoulder pain due to significant osteoarthritis. He has had right shoulder superior capsular reconstruction, a few years after that he re-tore the rotator cuff and was told that it cannot be fixed again and that he should wait until he is unbearable to consider for this surgery. The patient has had pain in the right shoulder since, and recently it has worsened. He describes it as a constant ache anterior, lateral, and posterior aspects of the shoulder. He rates it as 2-9/10. The pain is made worse with movement. He is a diabetic, controlled with Victoza. His last A1c was 6.0. He has failed conservative treatments and wishes to proceed with right total shoulder reverse with Dr. Huston. This is scheduled on 11/05/17. PAST MEDICAL HISTORY: 1. Hepatitis. 2. Depression. 3. Type 2 diabetes. 4. Thyroid disease. 5. Anemia. 6. Hypertension. 7. Neuropathy. 8. Spinal stenosis. 9. He uses an AFO brace for a foot drop. PAST SURGICAL HISTORY: 1. Remote left carpal tunnel release. 2. Right carpal tunnel and cubital tunnel releases. 3. Pituitary brain tumor surgery. 4. Right shoulder rotator cuff reconstruction. 5. Bilateral knee surgeries. 6. Left hip placement. 7. Liver surgery. MEDICATIONS: 1. Ultracet. 2. Fish oil. 3. Allopurinol. 4. Multivitamin. 5. Levothyroxine. 6. Trazodone. 7. Tramadol. 8. Enalapril maleate. 9. Cyanocobalamin. 10. Amlodipine. 11. Fluoxetine. 12. Ranitidine. 13. Liraglutide. 14. Prednisone. 15. Stool softener, lactulose. 16. Melatonin. 17. Polyethylene glycol. 18. Sennosides. 19. Morphine sulfate ER. ALLERGIES: To TETANUS TOXOID ADSORBED. REVIEW OF SYSTEMS: A complete 14-point review of systems was reviewed. Other than HPI, he reports intermittent numbness and tingling. Denies fevers, chills , chest pain or shortness of breath. All other systems are negative and noncontributory. PHYSICAL EXAMINATION GENERAL: Well-developed, well-nourished 76-year-old male, in no acute distress. Alert and oriented x3. Appropriate mood and affect. VITAL SIGNS: Height 61 inches, weight is 130 pounds, respirations 18, blood pressure is 133/71, pulse was 59, BMI 24.6. HEENT: Head is normocephalic, atraumatic. NECK: Supple with no palpable lymph nodes. LUNGS: Clear to auscultation bilaterally. No wheezes, rales or rhonchi. CARDIAC: Regular rate and rhythm. S1 and S2 with no murmurs, rubs or gallops. MUSCULOSKELETAL: Right upper extremity, skin is intact. No warmth or erythema. Tender to palpation over the anterior joint line and subacromial space. Active forward flexion to 90. Passively able to forward flex to 120. Active abduction to 45. External rotation 20. Internal rotation to lateral hip. Weakness and pain to rotator cuff testing. Positive Neer, Speed, Tracey- Leonel, and Pettigrew. Positive Louisa's. 2+ radial pulse. Sensation is intact to light touch distally. DIAGNOSTIC STUDIES: Multiple views, x-rays of the right shoulder had revealed glenohumeral joint arthritis with superior migration of the humeral head and anchors from prior superior capsular reconstruction. ASSESSMENT AND PLAN: Chris is a 76-year-old male who presents to clinic for right shoulder pain due to osteoarthritis and rotator cuff arthropathy. He is scheduled to undergo right total shoulder replacement reverse with Dr. Huston on 11/05/17. He will follow up in the office 10 to 14 days' postop. YARELIS KERN [id number]/[facility] #: [id number] [facility]ITAL[facility]ha
[~2017-11-05 06:10] MED LIST changes: +DiMENhydriNATE IV* 50 MG/ML VIAL IV PUSH PRN; +Famotidine IV* 10 MG/ML 2 ML (20 mg) IV ONE; +PROCHLORPERAZINE INJ 5 MG/ML 2 ML VIAL IV PRN
--- OUTSIDE RECORDS SUMMARY | 2017-11-05 06:16 | XMS REPORT ---
:1940 External Reference #:[id number] Author Organization [facility] Address [address] [address] Phone [phone] Care Team Providers Name Role Phone Jose Burgos MD Primary Care Physician Unavailable Payers Type Date Identification Numbers Payment Provider Subscriber Medicare Primary Effective: Policy Number: Medicare Chris Carlos 2005 [id number] PayID: [id number] [address] [place] [address] Medigap Part B Policy Number: [id number] [facility] [place] Carlos PayID: [id number] [address] [address] [place] [address] Problems Date Description Provider Status Onset: 01/27/2017 Polyneuropathy due to type 2 diabetes Julia Araya M.D. Active mellitus Onset: 01/27/2017 Carpal tunnel syndrome Julia Araya M.D. Active Onset: 01/27/2017 Ulnar neuropathy of left arm Julia Araya M.D. Active Onset: 01/27/2017 Unsteady gait Julia Araya M.D. 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 Family History Date Family Member(s) Problem(s) Comments General Heart Disease General Gout General Asthma General Prostate Cancer General Bipolar Disorder General Hypertension Social History Type Date Description Comments Lives With Occupation Retired Cigarette Use Never Smoked Cigarettes ETOH Use Denies alcohol use Smoking Patient has never smoked Recreational Drug Use Denies Drug Use Exercise Type/Frequency Does not exercise Allergies, Adverse Reactions, Alerts Date Description Reaction Status Severity Comments 10/19/2007 Tetanus Toxoid Adsorbed active pt had Guillain [place] 10/14/2017 Tapentadol Hydrochloride active itching 10/14/2017 Seasonal active Medications Medication Date Status Form Strength Qnty SIG Indications Ordering Provider Ultracet 08/28 Active Tablets 37.5-325m 30tab 1 by mouth g s q4-6hr as MD Miley needed pain Fish Oil 01/27 Active Capsules 1200mg 1 by mouth Jude Frey twice daily Carlos Raza Blood Pressure 08/31 Active Kit with Jude Frey Monitor Kit extra large kashif Raza M.D. Dx Hypertension Onetouch 12/14 Active Misc 150un use qd or as Jude Shante Ultrasoft its directed Eufemia Raza M.D. dx250.00 Glucometer 11/25 Active 1unit use qd to bid Jude Frey s as needed, Carlos Raza Dx 250.02 One Touch Ultra 11/25 Active Test 300un use with Jude Frey Test Strips /2007 Strips its glucometer Luz Marina, tikell or savannahn Carlos Allopurinol Active Tablets 300mg 90tab 1 po qd Jude E. / s Carlos Raza Multi-Day Active Tablets 1 PO qd Unknown Vitamins Levothyroxine Active Tablets 150mcg 90tab 1 by mouth Unknown Sodium / s every day Trazodone HCL Active Tablets 100mg 30tab 3 by mouth Unknown 0000 s every night at bedtime Tramadol HCL Active Tablets 50mg 50tab four times a Unknown /0000 s day as needed Enalapril Active Tablets 1 tab daily Unknown Maleate Cyanocobalamin Active 250mg 1 tab daily Unknown Amlodipine Active Tablets 10mg 1/2 tab by Unknown Besylate / mouth every day Fluoxetine HCL Active Capsules 20mg 2 by mouth Unknown 0000 every day Ranitidine HCL Active Tablets 150mg take one tablet by mouth twice a day Liraglutide Inj Active 1.2 mg Subq Unknown /0000 daily Prednisone Active Tablets 1mg 2 by mouth Unknown /0000 every day Stool Softener Active Capsules 100mg take 1 tab by Unknown /0000 mouh as needed Lactulose Active Solution 10GM/15ML take 15 ml by Unknown /0000 mouth every 72 hours as needed for constipation Melatonin ER Active Tablets 3mg 2 tab by Unknown /0000 ER mouth every day every night Polyethylene Active Powder mix 17gm with Unknown Glycol 3350 /0000 8 ounces of fluids once daily prn Sennosides Active Tablets 8.6mg 2 tabs PO bid Unknown / prn Amoxicillin 01/08 Hx Capsules 500mg 16cap 4 tablets 1 Z96.642 s hour before Kelley, - dental work M.Wong 01/26 Lovenox 11/11 Hx Solution 30mg/0.3M 18uni 30mg SC daily L ts ending Kelley, - 11/29/2016 Carlos 01/07 Restasis 08/09 Hx Emulsion 0.05% 3mont one gtts ou /2008 hs bid Physician - Practices 11/19 Synthroid 08/09 Hx Tablets 125mcg 1 po qd 244.9 Unknown - 03/02 Potassium 08/09 Hx Tablets 99mg 1 po qd Jude Frey /2008 Jennifer Raza M.D. 11/20 Fish Oil 08/09 Hx Capsules 1000mg 1 po qd Jude Frey /2008 Jennifer Raza M.D. 01/27 Glucosamine-Cho 08/09 Hx Capsules 750/600 2 po qd Jude Frey ndroitin /2008 mg. Jennifer Raza M.D. 11/19 Vitamin C 08/09 Hx Tablets 1000mg 1 po qd Jude ESharron /2008 Jennifer Raza M.D. 11/19 Testosterone 08/09 Hx Oil 200mg/ml 250 HG q 2 Other Enanthate /2008 weeks Physician - Practices 11/19 Cialis 07/18 Hx Tablets 20mg 20tab use as Jude ESharron /2008 s directed Jennifer Raza (1PO qd prn) Carlos 07/18 Glyburide 02/07 Hx Tablets 1.25mg 180ta 1 po bid Jude Frey Jennifer Morrison M.D. 11/19 Omeprazole 05/03 Hx Capsules 20mg 90cap [address] fannie Waddell MD - 02/07 Micronase 02/01 Hx Tablets 1.25mg 90tab 1 po qd Jude Frey Jennifer Fofana M.D. 02/07 Micronase 12/14 Hx Tablets 5mg 30tab 1/2 po q am Jude Frey Jennifer Fofana M.D. 02/01 Micronase 11/25 Hx Tablets 5mg 180ta 1 po qd x 1 Jude Frey /2007 skylar weston then Luz Marina - matthew to Carlos 12/14 bid Prandin 11/13 Hx Tablets 1mg 90tab 1 po tid with Jude Frey Jennifer Allen M.D. 11/25 Cardizem CD Hx Caps ER 240mg 90cap 1 po qd Jude E. / 24HR Jennifer Fofana M.D. 03/02 Vaseretic Hx Tablets 10-25mg 90tab 1 po qd Jude E. / Jennifer Fofana M.D. 11/19 Synthroid Hx Tablets 100mcg 90tab 1 po qam 244.9 John Faith, / s - 08/09 Cialis Hx Tablets 20mg 20tab 1/2 po q 3 Jude E. / s Jennifer Goodson M.D. 11/19 Albuterol Hx Aerosol 90mcg/Act 3Mont 2 PO Puffs Barken, /0000 h qid jeanna Contreras MD - 11/19 Gabapentin Hx Capsules 300mg 270ca 1 by mouth Unknown /0000 ps three times a - day 01/27 Bupropion HCL Hx Tablets 150mg 30tab 1 by mouth Unknown ER (SR) /0000 ER 12HR s every day - 11/19 Azathioprine Hx Tablets 50mg 90tab 1 1/2 by Unknown /0000 s mouth every - day 11/19 Venlafaxine HCL 00/00 Hx Tablets 150mg 90tab 1 by mouth Unknown ER /0000 ER 24HR s every day - 11/19 Victoza 00 Hx Sopn 18mg/3ML 30uni daily Unknown / ts - 11/19 Diltiazem HCL 00/00 Hx Unknown ER / - 11/19 Glipizide 00/00 Hx daily Unknown / - 01/26 Omeprazole 00/00 Hx Unknown / - 11/19 Calcium Citrate Hx Unknown + D3 / - 11/19 Fish Oil Ultra / Hx Unknown / - 11/19 Ascorbic Acid 00/00 Hx Unknown / - 11/19 Cephalexin Hx Capsules 500mg as directed Unknown / - 01/26 Meloxicam Hx Tablets 15mg daily Unknown / - 01/26 Nucynta ER 00 Hx Tablets 50mg Unknown / ER 12HR - 01/26 Oxycodone HCL 0000 Hx Tablets 10mg 1 tab q4-6 Unknown / hours - 01/26 Victoza 00 Hx Solution 18mg/3ML John Faith, Pen-Ofelia KNIGHT - t 01/26 Gabapentin 00 Hx Capsules 400mg 1 PO every Unknown / morning 2 PO - at bedtime 01/27 Morphine 00/00 Hx Unknown Sulfate ER / - 10/13 Vital Signs Date Vital Result Comment 10/28/2017 Height 70 inches 5'10" Weight 310.00 lb BP Systolic 144 mmHg BP Diastolic 78 mmHg Respiratory Rate 16 /min Body Temperature 97.7 F Pain Level 8 BMI (Body Mass Index) 44.5 kg/m2 10/14/2017 Height 70 inches 5'10" Heart Rate 80 /min BP Systolic 108 mmHg BP Diastolic 68 mmHg Respiratory Rate 16 /min Pain Level 3 09/16/2017 Height 70 inches 5'10" Weight 310.00 lb Heart Rate 65 /min BP Systolic 135 mmHg BP Diastolic 74 mmHg Body Temperature 98.3 F BMI (Body Mass Index) 44.5 kg/m2 09/10/2017 Height 70 inches 5'10" Weight 314.00 lb BP Systolic 134 mmHg BP Diastolic 68 mmHg Respiratory Rate 20 /min Body Temperature 97.5 F Pain Level 2 BMI (Body Mass Index) 45.0 kg/m2 08/13/2017 Height 70 inches 5'10" Weight 314.00 lb Heart Rate 76 /min BP Systolic 148 mmHg BP Diastolic 74 mmHg Respiratory Rate 20 /min Body Temperature 97.6 F Pain Level 4 BMI (Body Mass Index) 45.0 kg/m2 05/30/2017 Height 70 inches 5'10" Weight 314.00 lb Heart Rate 76 /min BP Systolic Sitting 134 mmHg BP Diastolic Sitting 72 mmHg Respiratory Rate 20 /min Pain Level 2 O2 % BldC Oximetry 96 % BMI (Body Mass Index) 45.0 kg/m2 05/20/2017 Height 70 inches 5'10" Weight 310.00 lb Heart Rate 58 /min BP Systolic Sitting 136 mmHg BP Diastolic Sitting 76 mmHg Respiratory Rate 16 /min Body Temperature 98.4 F Pain Level 8 BMI (Body Mass Index) 44.5 kg/m2 01/27/2017 Height 70 inches 5'10" Weight 301.00 lb Heart Rate 72 /min BP Systolic Sitting 128 mmHg BP Diastolic Sitting 70 mmHg Respiratory Rate 18 /min O2 % BldC Oximetry 97 % BMI (Body Mass Index) 43.2 kg/m2 01/08/2017 Height 70 inches 5'10" Weight 305.00 lb Respiratory Rate 18 /min Pain Level 0 BMI (Body Mass Index) 43.8 kg/m2 11/20/2016 Height 70 inches 5'10" Weight 305.00 lb Heart Rate 66 /min BP Systolic 126 mmHg BP Diastolic 70 mmHg Body Temperature 98.0 F BMI (Body Mass Index) 43.8 kg/m2 07/12/2014 Height 70 inches 5'10" Weight 323.00 lb Heart Rate 76 /min BP Systolic 112 mmHg BP Diastolic 64 mmHg BMI (Body Mass Index) 46.3 kg/m2 03/23/2014 Heart Rate 82 /min BP Systolic Sitting 140 mmHg BP Diastolic Sitting 70 mmHg 03/02/2014 Height 70 inches 5'10" Weight 323.00 lb Heart Rate 88 /min BP Systolic Sitting 158 mmHg BP Diastolic Sitting 80 mmHg BMI (Body Mass Index) 46.3 kg/m2 08/09/2009 Heart Rate 72 /min BP Systolic Sitting 148 mmHg BP Diastolic Sitting 80 mmHg 02/07/2009 Heart Rate 76 /min BP Systolic Sitting 136 mmHg BP Diastolic Sitting 72 mmHg 05/03/2008 Height 70 inches 5'10" Weight 315.00 lb Heart Rate 68 /min BP Systolic Sitting 114 mmHg BP Diastolic Sitting 70 mmHg BMI (Body Mass Index) 45.2 kg/m2 02/02/2008 Height 70 inches 5'10" Weight 320.00 lb Heart Rate 68 /min BP Systolic Sitting 118 mmHg BP Diastolic Sitting 68 mmHg Body Temperature 99.1 F BMI (Body Mass Index) 45.9 kg/m2 01/19/2008 Height 70 inches 5'10" Weight 323.00 lb lost 9# Heart Rate 68 /min BP Systolic Sitting 116 mmHg BP Diastolic Sitting 72 mmHg Body Temperature 98.2 F BMI (Body Mass Index) 46.3 kg/m2 12/14/2007 Height 70 inches 5'10" Weight 331.00 lb Heart Rate 68 /min BP Systolic Sitting 124 mmHg BP Diastolic Sitting 70 mmHg BMI (Body Mass Index) 47.5 kg/m2 11/13/2007 Height 70 inches 5'10" Weight 332.00 lb Heart Rate 78 /min BP Systolic Sitting 124 mmHg BP Diastolic Sitting 74 mmHg BMI (Body Mass Index) 47.6 kg/m2 Results Test Date Test Result H/L Range Note Laboratory test 10/02/2017 Point of Care Glucose 147 mg/dL High 70-100 1 finding Laboratory test 10/02/2017 Point of Care Glucose 183 mg/dL High 70-100 2 finding Laboratory test 08/28/2017 Point of Care Glucose 162 mg/dL High 70-100 3 finding Laboratory test 01/04/2010 Testosterone Total 355.8 ng/dL 175-781 finding Basic Metabolic Panel 09/29/2009 Sodium 138 mmol/L 135-145 Potassium 4.2 mmol/L 3.5-5.0 Chloride 105 mmol/L 101-111 Co2 (Carbon Dioxide) 26.0 mmol/L 22-32 Anion Gap 7.0 mmol/L 2-11 4 Glucose 126 mg/dL High 70-100 5 BUN 25 mg/dL High 6-24 Creatinine 1.70 mg/dL High 0.50-1.40 One Over Creatinine 0.50 BUN/Creatinine Ratio 14.7 8-20 Calcium 9.2 mg/dL 8.1-9.9 6 eGFR Non- 42.7 > 60 eGFR 51.6 > 60 7 Laboratory test finding 09/29/2009 Thyroxine Free 0.74 NG/ML 0.61-1.24 8 Cortisol 19.5 g/dL 9 Testosterone Total 295.0 ng/dL 175-781 [place] C/Ins Growth Fact 77 ng/mL 67-195 10 Basic Metabolic Panel 06/08/2009 Sodium 138 mmol/L 135-145 Potassium 4.4 mmol/L 3.5-5.0 Chloride 105 mmol/L 101-111 Co2 (Carbon Dioxide) 28.0 mmol/L 22-32 Anion Gap 5.0 mmol/L 2-11 11 Glucose 130 mg/dL High 70-100 12 BUN 21 mg/dL 6-24 Creatinine 1.60 mg/dL High 0.50-1.40 One Over Creatinine 0.60 BUN/Creatinine Ratio 13.1 8-20 Calcium 9.8 mg/dL 8.1-9.9 13 eGFR Non- 45.8 > 60 eGFR 55.4 > 60 14 Laboratory test finding 06/08/2009 Thyroxine Free 0.67 NG/ML 0.61-1.24 15 T3 Total 3.19 NG/ML High 0.5-1.7 T3 Free 4.88 pg/mL 2.39-6.79 TSH 1.31 MIU/ML 0.34-5.60 Lutenizing Hormone 1.56 MIU/ML 16 Testosterone Total 471.3 ng/dL 175-781 Hemoglobin A1c 6.1 % High <6.0 17 [place] C/Ins Growth Fact 103 ng/mL 67-195 18 Laboratory test finding 04/17/2009 BUN 21 mg/dL 6-24 Creatinine 04/17/2009 Creatinine 1.40 mg/dL 0.50-1.40 One Over Creatinine 0.70 Laboratory test finding 03/07/2009 Testosterone Total 115.2 ng/dL Low 175- 781 Laboratory test finding 02/03/2009 Thyroxine Free 0.66 NG/ML 0.61-1.24 19 Testosterone Total 116.3 ng/dL Low 175-781 Hemoglobin A1c 5.4 % <6.0 20 [place] C/Ins Growth Fact 69 ng/mL 67-195 21 Basic Metabolic Panel 12/15/2008 Sodium 137 mmol/L 135-145 Potassium 4.2 mmol/L 3.5-5.0 Chloride 106 mmol/L 101-111 Co2 (Carbon Dioxide) 27.0 mmol/L 22-32 Anion Gap 4.0 mmol/L 2-11 22 Glucose 146 mg/dL High 70-100 23 BUN 27 mg/dL High 6-24 Creatinine 1.50 mg/dL High 0.50-1.40 One Over Creatinine 0.60 BUN/Creatinine Ratio 18.0 8-20 Calcium 9.3 mg/dL 8.1-9.9 24 Laboratory test finding 12/15/2008 Thyroxine Free 0.70 NG/ML 0.61-1.24 25 T3 Total 2.23 NG/ML High 0.5-1.7 T3 Free 4.91 pg/mL 2.39-6.79 TSH 1.93 MIU/ML 0.34-5.60 Lutenizing Hormone 4.24 MIU/ML 26 Testosterone Total 133.1 ng/dL Low 175-781 PSA Screening 1.77 NG/ML 0-4 27 [place] C/Ins Growth Fact 60 ng/mL 67-195 28 Laboratory test finding 09/20/2008 Thyroxine Free 0.53 NG/ML Low 0.61- 1.24 29, 30 T3 Total 1.94 NG/ML High 0.5-1.7 29 T3 Free 3.63 pg/mL 2.39-6.79 29 TSH 1.83 MIU/ML 0.34-5.60 29 Lutenizing Hormone 4.23 MIU/ML 29, 31 Testosterone Total 138.7 ng/dL Low 175-781 29 Hemoglobin A1c 5.5 % <6.0 29, 32 [place] C/Ins Growth Fact 77 ng/mL 67-195 29, 33 Basic Metabolic Panel 09/20/2008 Sodium 140 mmol/L 135-145 Potassium 4.1 mmol/L 3.5-5.0 Chloride 108 mmol/L 101-111 Co2 (Carbon Dioxide) 25.0 mmol/L 22-32 Anion Gap 7.0 mmol/L 2-11 34 Glucose 129 mg/dL High 70-100 35 BUN 24 mg/dL 6-24 Creatinine 1.50 mg/dL High 0.50-1.40 One Over Creatinine 0.60 BUN/Creatinine Ratio 16.0 8-20 Calcium 9.4 mg/dL 8.1-9.9 36 Laboratory test finding 08/17/2008 Osmolality Random Urine 599 MOSMO 300- 1000 37 Basic Metabolic Panel 08/17/2008 Sodium 142 mmol/L 135-145 Potassium 4.3 mmol/L 3.5-5.0 Chloride 106 mmol/L 101-111 Co2 (Carbon Dioxide) 28.0 mmol/L 22-32 Anion Gap 8.0 mmol/L 2-11 38 Glucose 122 mg/dL High 70-100 39 BUN 31 mg/dL High 6-24 Creatinine 1.6 mg/dL High 0.5-1.4 One Over Creatinine 0.62 BUN/Creatinine Ratio 19.4 8-20 Calcium 9.5 mg/dL 8.1-9.9 40 Laboratory test finding 08/17/2008 Osmolality 298 MOSMO High 281-297 41 Cortisol 20.3 g/dL 42 Basic Metabolic Panel 07/25/2008 Sodium 141 mmol/L 135-145 Potassium 4.3 mmol/L 3.5-5.0 Chloride 108 mmol/L 101-111 Co2 (Carbon Dioxide) 28.0 mmol/L 22-32 Anion Gap 5.0 mmol/L 2-11 43 Glucose 129 mg/dL High 70-100 44 BUN 36 mg/dL High 6-24 Creatinine 1.6 mg/dL High 0.5-1.4 One Over Creatinine 0.62 BUN/Creatinine Ratio 22.5 High 8-20 Calcium 9.4 mg/dL 8.1-9.9 45 Laboratory test finding 07/25/2008 Cortisol 22.8 g/dL 46 Basic Metabolic Panel 07/18/2008 Sodium 143 mmol/L 135-145 Potassium 4.4 mmol/L 3.5-5.0 Chloride 109 mmol/L 101-111 Co2 (Carbon Dioxide) 27.0 mmol/L 22-32 Anion Gap 7.0 mmol/L 2-11 47 Glucose 115 mg/dL High 70-100 48 BUN 40 mg/dL High 6-24 Creatinine 1.6 mg/dL High 0.5-1.4 One Over Creatinine 0.62 BUN/Creatinine Ratio 25.0 High 8-20 Calcium 9.5 mg/dL 8.1-9.9 49 Laboratory test finding 07/18/2008 Thyroxine Free 0.85 NG/ML 0.61-1.24 50 Lutenizing Hormone 4.83 MIU/ML 51 Cortisol 27.8 g/dL 52 Testosterone Total 58.1 ng/dL Low 175-781 [place] C/Ins Growth Fact 72 ng/mL 67-195 53 Growth Hormone 0.04 ng/mL 0.01-0.97 54 Basic Metabolic Panel 07/05/2008 Sodium 136 mmol/L 135-145 Potassium 3.8 mmol/L 3.5-5.0 Chloride 108 mmol/L 101-111 Co2 (Carbon Dioxide) 24.0 mmol/L 22-32 Anion Gap 4.0 mmol/L 2-11 55 Glucose 151 mg/dL High 70-100 56 BUN 37 mg/dL High 6-24 Creatinine 1.5 mg/dL High 0.5-1.4 One Over Creatinine 0.66 BUN/Creatinine Ratio 24.7 High 8-20 Calcium 8.0 mg/dL Low 8.1-9.9 57 Laboratory test finding 07/05/2008 Thyroxine Free 0.66 NG/ML 0.61-1.24 58 T3 Total 1.18 NG/ML 0.5-1.7 T3 Free 2.74 pg/mL 2.39-6.79 TSH 0.90 MIU/ML 0.34-5.60 Cortisol 36.3 g/dL 59 Basic Metabolic Panel 05/13/2008 Sodium 138 mmol/L 135-145 Potassium 3.7 mmol/L 3.5-5.0 Chloride 109 mmol/L 101-111 Co2 (Carbon Dioxide) 25.0 mmol/L 22-32 Anion Gap 4.0 mmol/L 2-11 60 Glucose 150 mg/dL High 70-105 BUN 23 mg/dL 6-24 Creatinine 1.6 mg/dL High 0.5-1.4 One Over Creatinine 0.62 BUN/Creatinine Ratio 14.4 8-20 Calcium 9.7 mg/dL 8.1-9.9 61 Laboratory test finding 05/13/2008 Thyroxine Free 0.62 NG/ML 0.61-1.24 62 T3 Total 2.18 NG/ML High 0.5-1.7 T3 Free 3.45 pg/mL 2.39-6.79 TSH 1.33 MIU/ML 0.34-5.60 FSH 4.69 MIU/ML 63 Lutenizing Hormone 4.34 MIU/ML 64 Cortisol 8.0 g/dL 65 Hemoglobin A1c 6.1 % High <6.0 66 Insulinlike Growth Protein 3 2.5 ug/mL 3.0-6.2 67 [place] C/Ins Growth Fact 41 ng/mL 67-195 68 Growth Hormone 0.01 ng/mL 0.01-0.97 69 Basic Metabolic Panel 04/08/2008 Sodium 134 mmol/L Low 135-145 Potassium 3.6 mmol/L 3.5-5.0 Chloride 107 mmol/L 101-111 Co2 (Carbon Dioxide) 24.0 mmol/L 22-32 Anion Gap 3.0 mmol/L 2-11 70 Glucose 166 mg/dL High 70-105 BUN 27 mg/dL High 6-24 Creatinine 1.7 mg/dL High 0.5-1.4 One Over Creatinine 0.58 BUN/Creatinine Ratio 15.9 8-20 Calcium 9.2 mg/dL 8.1-9.9 71 Laboratory test finding 04/08/2008 Amylase 66 U/L 30-125 Lipase 59 U/L High 22-51 Cortisol 9.7 g/dL 72 Laboratory test finding 02/15/2008 Clotest N^NEGATIVE^JAMIL Surgical Pathology <SEE NOTE> 73 Laboratory test finding 02/09/2008 Prolactin 18.76 NG/ML 1.0-20.0 Testosterone Total 89.8 ng/dL Low 175-781 Laboratory test finding 02/09/2008 FSH 4.97 MIU/ML 74 Lutenizing Hormone 4.58 MIU/ML 75 Urine Collection Duration 02/09/2008 Cortisol, Free, Urine 6.4 ug/24h 3.5 -45 Urine Collection Duration 24 h () Urine Total Volume 2450 mL () 76 Laboratory test finding 02/02/2008 TSH 0.33 MIU/ML Low 0.34-5.60 77 Basic Metabolic Panel 02/02/2008 One Over Creatinine 0.58 77 Anion Gap 7.0 mmol/L 2-11 77, 78 BUN 31 mg/dL High 6-24 77 Calcium 10.0 mg/dL 8.7-10.2 77 Chloride 105 mmol/L 101-111 77 Co2 (Carbon Dioxide) 27.0 mmol/L 22-32 77 Glucose 99 mg/dL 70-105 77 Potassium 4.2 mmol/L 3.5-5.0 77 Sodium 139 mmol/L 135-145 77 BUN/Creatinine Ratio 18.2 8-20 77 Creatinine 1.7 mg/dL High 0.5-1.4 77 Laboratory test 02/02/2008 Free Thyroxine 0.78 NG/ML 0.61-1.24 77, 79 finding Laboratory test 01/27/2008 O P: Giardia/Crypto Giardia and cryp 77, 80 finding Screen <SEE NOTE> Stool For Polys 01/27/2008 Stool Color LIGHT BROWN 77 Stool Consistency FIRM 77 Stool Form FORMED 77 Stool For WBCS (Polys) NONE DETECTED Negative 77 Comp Metabolic Panel 01/19/2008 One Over Creatinine 0.55 81 Anion Gap 11.0 mmol/L 2-11 81, 82 Albumin/Globulin Ratio 1.3 1-3 81 Albumin 4.1 GM/DL 3.2-5.2 81 Alkaline Phosphatase 66 U/L 39-117 81 Alt (SGPT) 33 U/L 17-63 81 Ast (Sgot) 47 U/L High 12-42 81 BUN 28 mg/dL High 6-24 81 Calcium 9.4 mg/dL 8.7-10.2 81 Chloride 105 mmol/L 101-111 81 Co2 (Carbon Dioxide) 26.0 mmol/L 22-32 81 Globulin 3.1 GM/DL 2-4 81 Glucose 114 mg/dL High 70-105 81 Potassium 3.8 mmol/L 3.5-5.0 81 Sodium 142 mmol/L 135-145 81, 83 Bilirubin Total 0.9 mg/dL 0.4-1.5 81 Total Protein 7.2 GM/DL 6.2-8.1 81 BUN/Creatinine Ratio 15.6 8-20 81 Creatinine 1.8 mg/dL High 0.5-1.4 81 Laboratory test finding 01/19/2008 TSH 0.33 MIU/ML Low 0.34-5.60 81 CBC With Electronic Diff 01/19/2008 White Blood Count 6.3 CUMM 4.8-10.8 81 Abs Basophils 0.1 0-0.2 81 Abs Eosinophils 0.4 0-0.6 81 Absolute Neutrophil Count 4.0 1.5-7.7 81 Abs Lymphs 1.3 1.0-4.8 81 Abs Mononuclear 0.6 0-0.8 81 Basophil % 0.9 % 0-2 81 Hematocrit 41 % Low 42-52 81 Hemoglobin 14.1 g/dL 14.0-18.0 81 Eosinophil % 6.7 % High 0-6 81 Gran % 63.1 % 38-83 81 Lymph % 20.2 % 20-45 81 Mean Corpuscular HGB Cone 35 g/dL 32-36 81 Mean Corpuscular Hemoglob 31 pg 27-31 81 Mean Corpuscular Volume 89 um3 80-94 81 Mean Platelet Volume 9.7 um3 7.4-10.4 81 Mononuclear % 9.1 % High 1-9 81 Platelet Count 151 CUMM 150-450 81 Red Cell Count 4.56 CUMM Low 4.6-6.2 81 Redcell Distribution WDTH 15 % 10.5-15 81 Laboratory test finding 01/19/2008 Erythrocyte Sed Rate 19 MM/HR 0-40 81 Hemoglobin A1c 6.6 % High <6.0 81, 84 Surgical Pathology 08/20/2007 Surgical Pathology <SEE 85 NOTE> 1 Theatre Program Director: [id number] 2 Theatre Program Director: [id number] 3 Theatre Program Director: [id number] 4 Anion gap measurement may be of limited value in the presence of any alkalosis, especially in a combined acid base disorder. . 5 Note change in reference range as of 06/23/08. The change was based on recommendations from the [place] [employer]. 6 Please note change in reference range effective 08 . 7 Because ethnic data is not always readily available, this report includes an eGFR for both -Americans and non- Americans. The National Kidney Disease Education Program (NKDEP) does not endorse the use of the MDRD equation for patients that are not between the ages of 18 and 70, are , have extremes of body size, muscle mass, or nutritional status, or are non- or non-. According to the National Kidney Foundation, irrespective of diagnosis, the stage of the disease is based on the level of kidney function: Stage Description GFR(mL/min/1.73 m(2)) 1 Kidney damage with normal or decreased GFR 90 2 Kidney damage with mild decrease in GFR 60-89 3 Moderate decrease in GFR 30-59 4 Severe decrease in GFR 15-29 5 Kidney failure <15 (or dialysis) 8 PLEASE NOTE NEW REFERENCE RANGES. 9 REFERENCE RANGE: AM 8.7-22.4 PM LESS THAN 10 . 10 Test Performed by: [facility] D[facility] of Lab Med and Pathology [address] [place] [id number] Change Management Specialist: Calin Thompson III, M.D. 11 Anion gap measurement may be of limited value in the presence of any alkalosis, especially in a combined acid base disorder. . 12 Note change in reference range as of 06/23/08. The change was based on recommendations from the [place] [employer]. 13 Please note change in reference range effective 08 . 14 Because ethnic data is not always readily available, this report includes an eGFR for both -Americans and non- Americans. The National Kidney Disease Education Program (NKDEP) does not endorse the use of the MDRD equation for patients that are not between the ages of 18 and 70, are , have extremes of body size, muscle mass, or nutritional status, or are non- or non-. According to the National Kidney Foundation, irrespective of diagnosis, the stage of the disease is based on the level of kidney function: Stage Description GFR(mL/min/1.73 m(2)) 1 Kidney damage with normal or decreased GFR 90 2 Kidney damage with mild decrease in GFR 60-89 3 Moderate decrease in GFR 30-59 4 Severe decrease in GFR 15-29 5 Kidney failure <15 (or dialysis) 15 PLEASE NOTE NEW REFERENCE RANGES. 16 NORMAL RANGE MALES 2 - 12 NORMALLY MENSTRUATING FEMALES - Follicular Phase 1 - 18 - Mid-Cycle Peak 24 - 105 - Luteal Phase 0.6 - 20 POSTMENOPAUSAL FEMALES 15 - 62 . 17 THERAPEUTIC TARGET FOR THE TREATMENT OF DIABETES MELLITUS PATIENTS IS <7% HBA1C, AND IN SELECTIVE PATIENTS <6.0%. PLEASE REFER TO CITIZEN [place] [employer] DIABETIC CARE GUIDELINES FOR FURTHER INFORMATION. 18 Test Performed by: [facility] D[facility] of Lab Med and Pathology [address] [place] [id number] Change Management Specialist: Calin Thompson III, M.D. 19 PLEASE NOTE NEW REFERENCE RANGES. 20 THERAPEUTIC TARGET FOR THE TREATMENT OF DIABETES MELLITUS PATIENTS IS <7% HBA1C, AND IN SELECTIVE PATIENTS <6.0%. PLEASE REFER TO CIT[employer] [employer] DIABETIC CARE GUIDELINES FOR FURTHER INFORMATION. 21 Test Performed by: [facility] Dpt of Lab Med and Pathology [address] [place] [address] Change Management Specialist: Calin Thompson III, M.D. 22 Anion gap measurement may be of limited value in the presence of any alkalosis, especially in a combined acid base disorder. . 23 Note change in reference range as of 06/23/08. The change was based on recommendations from the [place] [employer]. 24 Please note change in reference range effective 08 . 25 PLEASE NOTE NEW REFERENCE RANGES. 26 NORMAL RANGE MALES 2 - 12 NORMALLY MENSTRUATING FEMALES - Follicular Phase 1 - 18 - Mid-Cycle Peak 24 - 105 - Luteal Phase 0.6 - 20 POSTMENOPAUSAL FEMALES . 27 * SERUM LEVELS OF PSA MEASURED USING THE SHERIDAN MIRI ACCESS HYBRITECH IMMUNOASSAY SHOULD NOT BE INTERPRETED ABSOLUTE EVIDENCE OF THE PRESENCE OR ABSENCE OF DISEASE. THE PSA VALUE SHOULD BE USED IN CONJUNCTION WITH OTHER PERTINENT CLINICAL DIAGNOSTIC PROCEDURES. 28 Test Performed by: [facility] Dpt of Lab Med and Pathology [address] [place], [place] [id number] Change Management Specialist: Calin Thompson III, M.D. 29 FASTING 30 PLEASE NOTE NEW REFERENCE RANGES. 31 NORMAL RANGE MALES 2 - 12 NORMALLY MENSTRUATING FEMALES - Follicular Phase 1 - 18 - Mid-Cycle Peak 24 - 105 - Luteal Phase 0.6 - 20 POSTMENOPAUSAL FEMALES . 32 THERAPEUTIC TARGET FOR THE TREATMENT OF DIABETES MELLITUS PATIENTS IS <7% HBA1C, AND IN SELECTIVE PATIENTS <6.0%. PLEASE REFER TO CITIZ[place] [employer] DIABETIC CARE GUIDELINES FOR FURTHER INFORMATION. 33 Test Performed by: [facility] Dpt of Lab Med and Pathology [address] [place] [address] Change Management Specialist: Calin Thompson III, M.D. 34 Anion gap measurement may be of limited value in the presence of any alkalosis, especially in a combined acid base disorder. . 35 Note change in reference range as of 06/23/08. The change was based on recommendations from the [place] [employer]. 36 Please note change in reference range effective 08 . 37 TEST PERFORM BY [facility] PLEASE NOTE NORMAL RANGE 300-800 MOSM/KG 38 Anion gap measurement may be of limited value in the presence of any alkalosis, especially in a combined acid base disorder. . 39 Note change in reference range as of 06/23/08. The change was based on recommendations from the [place] [employer]. 40 Please note change in reference range effective 08 . 41 TEST PERFORM BY [facility] PLEASE NOTE NORMAL RANGE 275-295 MOSMOL/KG 42 REFERENCE RANGE: AM 8.7-22.4 PM LESS THAN 10 . 43 Anion gap measurement may be of limited value in the presence of any alkalosis, especially in a combined acid base disorder. . 44 Note change in reference range as of 06/23/08. The change was based on recommendations from the [place] [employer]. 45 Please note change in reference range effective 08 . 46 REFERENCE RANGE: AM 8.7-22.4 PM LESS THAN 10 . 47 Anion gap measurement may be of limited value in the presence of any alkalosis, especially in a combined acid base disorder. . 48 Note change in reference range as of 06/23/08. The change was based on recommendations from the [place] [employer]. 49 Please note change in reference range effective 08 . 50 PLEASE NOTE NEW REFERENCE RANGES. 51 NORMAL RANGE MALES 2 - 12 NORMALLY MENSTRUATING FEMALES - Follicular Phase 1 - 18 - Mid-Cycle Peak 24 - 105 - Luteal Phase 0.6 - 20 POSTMENOPAUSAL FEMALES 15 - 62 . 52 REFERENCE RANGE: AM 8.7-22.4 PM LESS THAN 10 . 53 Test Performed by: [facility] Dpt of Lab Med and Pathology [address] [place] [address] Change Management Specialist: Calin Thompson III, M.D. 54 Test Performed by: [facility] Dpt of Lab Med and Pathology [address] [place] [address] Change Management Specialist: Calin Thompson III, M.D. 55 Anion gap measurement may be of limited value in the presence of any alkalosis, especially in a combined acid base disorder. . 56 Note change in reference range as of 06/23/08. The change was based on recommendations from the [place] [employer]. 57 Please note change in reference range effective 08 . 58 PLEASE NOTE NEW REFERENCE RANGES. 59 REFERENCE RANGE: AM 8.7-22.4 PM LESS THAN 10 . 60 Anion gap measurement may be of limited value in the presence of any alkalosis, especially in a combined acid base disorder. . 61 Please note change in reference range effective 08 . 62 PLEASE NOTE NEW REFERENCE RANGES. 63 NORMAL RANGE MALES 1 - 20 NORMALLY MENSTRUATING FEMALES - Follicular Phase 3 - 9 - Mid-Cycle Peak 4 - 23 - Luteal Phase 1 - 6 POSTMENOPAUSAL FEMALES 16 - 114 . 64 NORMAL RANGE MALES 2 - 12 NORMALLY MENSTRUATING FEMALES - Follicular Phase 1 - 18 - Mid-Cycle Peak 24 - 105 - Luteal Phase 0.6 - 20 POSTMENOPAUSAL FEMALES 15 - 62 . 65 REFERENCE RANGE: AM 8.7-22.4 PM LESS THAN 10 . 66 THERAPEUTIC TARGET FOR THE TREATMENT OF DIABETES MELLITUS PATIENTS IS <7% HBA1C, AND IN SELECTIVE PATIENTS <6.0%. PLEASE REFER TO [place] [employer] DIABETIC CARE GUIDELINES FOR FURTHER INFORMATION. 67 Test Performed by: [facility] Dpt of Lab Med and Pathology [address] [place] [address] Change Management Specialist: Calin Thompson III, M.D. 68 Test Performed by: [facility] Dpt of Lab Med and Pathology [address] [place] [address] Change Management Specialist: Calin Thompson III, M.D. 69 Test Performed by: [facility] Dpt of Lab Med and Pathology [address] [place] [address] Change Management Specialist: Calin Thompson III, M.D. 70 Anion gap measurement may be of limited value in the presence of any alkalosis, especially in a combined acid base disorder. . 71 Please note change in reference range effective 08 . 72 REFERENCE RANGE: AM 8.7-22.4 PM LESS THAN 10 . 73 ---- RUN DATE: 02/16/08 [facility] NMI LIVE PAGE 1 RUN TIME: 1520 Specimen Inquiry RUN USER: INTERFACE [id number] TERRANCECHRIS Muñoz 67/M <REG REF 02/14> ([id number]) ITALO Mcqueen MD, Bairon Back -- Specimen: [id number] SOUT Spec Date: 02/15/[address]: Bairon hudson MD Spec Type: SURGICAL P Received: 02/15/08-1419 Copies to: Jude Raza III, MD SPECIMEN 1) GASTRIC NODULE BIOPSY 2) GASTRIC BODY BIOPSY 3) DUODENAL BULB BIOPSY HISTORY CLINICAL INFORMATION: Weight loss; loss of appetite GROSS DESCRIPTION 1) The specimen is received in formalin labelled Chris Carlos, Gastric Nodule, and consists of a craft, soft tissue fragment measuring 0.3 x 0.3 x 0.2 cm. Submitted entirely, one cassette. 2) The specimen is received in formalin labelled Chris Carlos, Gastric Body, and consists of two, craft, soft tissue fragments measuring 0.5 x 0.4 x 0.2 cm. in aggregate. Submitted entirely, one cassette. 3) The specimen is received in formalin labelled Chris Carlos, Duodenal Bulb, and consists of two, craft, soft tissue fragments measuring 0.4 x 0.2 x 0.2 cm. Submitted entirely, one cassette. DIAGNOSIS 1) Stomach, nodule, biopsy: Hyperplastic polyp. 2) Stomach, body, biopsy: A) Gastric oxyntic gland mucosa with nonspecific diffuse mild chronic inflammation. B) No active gastritis nor Helicobacter pylori-like organisms identified. 3) Small bowel, duodenal bulb, biopsy: Small bowel mucosa with normal villous architecture and no significant pathologic abnormality. Signed Electronically by: NANDO MERCADO MD 02/16/08 1519 -- -- DEPARTMENT OF PATHOLOGY, [address] [place] [address] [facility] Permit #[id number] Nando Mercado M.D. Director of [employer] -- 74 NORMAL RANGE MALES 1 - 20 NORMALLY MENSTRUATING FEMALES - Follicular Phase 3 - 9 - Mid-Cycle Peak 4 - 23 - Luteal Phase 1 - 6 POSTMENOPAUSAL FEMALES 16 - 114 . 75 NORMAL RANGE MALES 2 - 12 NORMALLY MENSTRUATING FEMALES - Follicular Phase 1 - 18 - Mid-Cycle Peak 24 - 105 - Luteal Phase 0.6 - 20 POSTMENOPAUSAL FEMALES 15 - 62 . 76 Test Performed by: [facility] Dpt of Lab Med and Pathology [address] [place] [address] Change Management Specialist: Calin Thompson III, M.D. 77 PATIENT MAY HAVE RESULTS PER DOCTOR'S AUTHORIZATION. Questions regarding this report should be directed to your doctor. 78 Anion gap measurement may be of limited value in the presence of any alkalosis, especially in a combined acid base disorder. . 79 PLEASE NOTE NEW REFERENCE RANGES. 80 Giardia and cryptosporidium antigen testing performed by immunoassay. If patient is immunocompromised or has traveled to or is from a developing country, a full ova and parasite exam with microscopic (OPMIC) is recommended. All samples will be held one month in case full ova and parasite testing is requested. Contact the Microbiology Department at [phone]. N^NEGATIVE BY IMMUNOASSAY^CRY N^NEGATIVE BY IMMUNOASSAY^RICH 81 FASTING PATIENT MAY HAVE RESULTS PER DOCTOR'S AUTHORIZATION. Questions regarding this report should be directed to your doctor. 82 Anion gap measurement may be of limited value in the presence of any alkalosis, especially in a combined acid base disorder. . 83 CORRECTED RESULT! WRONG RESULT WAS 134 84 THERAPEUTIC TARGET FOR THE TREATMENT OF DIABETES MELLITUS PATIENTS IS <7% HBA1C, AND IN SELECTIVE PATIENTS <6.0%. PLEASE REFER TO [place] [employer] DIABETIC CARE GUIDELINES FOR FURTHER INFORMATION. 85 ---- RUN DATE: 08/21/07 [facility] NMI LIVE PAGE 1 RUN TIME: 1531 Specimen Inquiry RUN USER: INTERFACE [id number] CHRIS CARLOS 66/M <REG REF 08/19> ([id number]) [id number] Gilliland MD, Reinaldo -- Specimen: [id number] SOUT Spec Date: 08/20/[address]: Reinaldo harrell MD Spec Type: SURGICAL P Received: 08/20/07-1230 Copies to: Jude Raza III, MD SPECIMEN 1) BIOPSY CECAL POLYP 2) RIGHT COLON POLYP 3) POLYP AT 18 CM. HISTORY CLINICAL INFORMATION: Patient with history of polyps, denies family histo ry of colon carcinoma GROSS DESCRIPTION 1) The specimen is received in formalin labelled Chris Carlos, Biopsy Cecal Polyp, and consists of measuring 0.4 x 0.3 x 0.2 cm. Submitted entirely, one cassette. 2) The specimen is received in formalin labelled Chris Carlos, Right Colon Polyp, and consists of multiple, craft, soft tissue fragments measuring 1.0 x 0.6 x 0.4 cm. Submitted entirely, one cassette. 3) The specimen is received in formalin labelled Chris Carlos, Polyp at 18 cm., and consists of multiple, craft, soft tissue fragments measuring 0.5 x 0.4 x 0.2 cm. Submitted entirely, one cassette. DIAGNOSIS 1) Colon, cecum, biopsy - A) Tubular adenoma. B) No high grade dysplasia or malignancy. 2) Colon, right, biopsy - Hyperplastic polyp. 3) Colon, 18 cm., biopsy - Inflamed hyperplastic polyp. Signed Electronically by: NANDO MERCADO MD 08/21/07 1531 -- -- DEPARTMENT OF PATHOLOGY, [address] [place] [address] [facility] Permit #[id number] Nando Mercado M.D. Director of Laboratories Chandu Pardo II Pathologist -- Procedures Date CPT Code Description Status 10/02/2017 08748 Carpal Tunnel Release Completed 10/02/2017 17056 Neuroplasty &/Or Transposition; Ulnar Nerve At Completed Elbow 10/02/2017 45495 Neuroplasty &/Or Transposition; Ulnar Nerve At Completed Elbow 08/28/2017 93370 Carpal Tunnel Release Completed 08/28/201753342 Neuroplasty &/Or Transposition; Ulnar Nerve At Completed Elbow 08/28/201750250 Neuroplasty &/Or Transposition; Ulnar Nerve At Completed Elbow 05/20/2017 75272 Rad Exam; Wrist Limited, 2 Views Completed 01/28/2017 69754 Nerve Conduction 03-04 Studies Completed 10/29/2016 THR Total Hip Replacement Completed 10/29/2016 THR Total Hip Replacement Completed 10/28/2016 73087 Treadmill Interp/Report Only Completed 10/28/2016 59617 Stress Test Supervsn W/Out I/R Completed 10/27/2016 72658 EKG, Interpretation Only Completed 03/02/2014 54237 Rad Exam; Hand Comp Completed Encounters Type Date Location Provider CPT E/M Dx Office Visit 09/16/2017 [place] [address] M19.011 2:00p Of [facility] Office Visit 05/30/2017 [place]/Heike Araya, 79157 E11.42 11:30a [facility] Office Visit 05/20/2017 [place] [address] G56.03 3:00p Of [place] G56.23 Office Visit 01/27/2017 9:00a [place]/Heike Araya, 70558 E11.42 Neurologic Serv Of [facility] Carlos G56.03 G56.22 G62.9 Office Visit 10/31/2016 2:54p [facility], Demond Acosta M.D. 04911 E11.22 Hospitalists S72.002A N18.3 I10 Office Visit 10/30/2016 2:53p [facility] Demond Acosta M.D. 93449 S72.002A [facility] N18.3 E11.22 I10 Office Visit 10/29/2016 2:52p [facility] Demond Acosta M.D. 06121 S72.002A [facility] Hospital[facility] N18.3 E11.22 I10 Office Visit 10/28/2016 2:52p [facility], Esteban Gaona, 50517 N18.3 Hospitalurszula Gonzalez,FACP S72.002A E11.22 Office Visit 10/27/2016 2:51p [facility] Esteban Gaona, 32397 S72.002A Ass, Hospitalurszula Gonzalez,FACP N18.3 E11.22 Office Visit 10/27/2016 1:44p [facility] Tomas Gaines, 58877 M87.052 Of [facility] KNIGHT M16.12 Office Visit 10/26/2016 2:50p [facility] [place], 00118 E11.22 Assoc, Hospitalists N.PSharron S72.002A N18.3 I10 Office Visit 10/26/2016 1:44p [facility] Tomas Gaines, 88740 M87.052 Of [place] KNIGHT M16.12 Office Visit 10/25/2016 2:42p [facility] 65785 S72.002A Assoc, [place] ZAFAR Hospitalists E11.22 N18.3 I10 Office Visit 07/12/2014 9:15a [facility] Gato Stewart M.D. 75334 716.91 Of [place] Office Visit 03/23/2014 9:15a [facility] Mary Leija 83093 715.14 Of [facility] Office Visit 03/02/2014 1:15p [facility] Mary Leija, 27383 719.44 Of [facility] Office Visit 09/03/2013 6:03p [facility], 18205 482.9 Assoc, Hospitalists Carlos 250.00 995.90 401.9 Office Visit 09/02/2013 6:02p [facility], 18651 995.90 Assoc, Hospitalists [place] 482.9 250.00 401.9 Office Visit 09/01/2013 6:02p [facility], 40982 995.90 Assoc, Hospitalists [place] 482.9 250.00 401.9 Office Visit 08/31/2013 6:01p [facility], 30636 995.90 Assoc, Hospitalists [place] 482.9 250.00 401.9 Office Visit 08/31/2013 1:10p [facility] Rudy Lezama, 73983 728.87 Services Of [facility] [place] V12.40 Office Visit 08/30/2013 6:00p [facility], 21692 995.90 Assoc, Hospitalists [place] 482.9 250.00 401.9 Office Visit 08/29/2013 5:53p [facility], 32230 995.90 Assoc,pc Hospitalists M.DSharron 482.9 250.00 401.9 Office Visit 08/28/2013 9:54a [facility], 94713 780.79 Assoc,pc Hospitalists M.DSharron 276.1 275.2 276.51 Office Visit 08/09/2009 10:00a DO Not Use [facility] At [facility], 30[address] 401.1 [facility] 780.57 227.3 Office Visit 02/07/2009 10:30a [facility], 29302 250.00 [facility] M.D. Office Visit 05/03/2008 9:15a [facility], 72562 787.02 [facility] M.D. 250.00 Office Visit 04/22/2008 10:00a [facility] Services Toy Morales, 51832 227.9 Of [facility] [place] Office Visit 02/02/2008 9:30a [facility], 75370 787.02 [facility] M.D. 789.00 244.9 250.00 Office Visit 01/19/2008 11:00a [facility], 27386 787.02 [facility] M.D. 780.79 250.00 Office Visit 12/14/2007 10:15a [facility], 82828 250.00 [facility] M.D. Office Visit 11/13/2007 10:15a [facility], 81897 250.00 [facility] M.D. 401.1 244.9 Plan of Care Future Appointment(s):11/18/2017 9:15 am - Anabella Huston [facility] at [facility]12/08/2017 10:30 am - Kentrell Benson M.D. at [facility]12/16/2017 10:00 am - Carlo Trent MD at [facility]11/05/2017 7:45 am - Anabella Huston MD at [facility].ASharron12/29/2017 2:00 pm - Julia Araya M.D. at [facility]
--- OUTSIDE RECORDS SUMMARY | 2017-11-05 06:17 | XMS REPORT ---
:1940 External Reference #:[id number] Author Organization [facility] Address [address] [address] Phone [phone] Care Team Providers Name Role Phone Jose Burgos MD Primary Care Physician Unavailable Payers Type Date Identification Numbers Payment Provider Subscriber Medicare Primary Effective: Policy Number: Medicare Chris Carlos 2004 [id number] PayID: [id number] [address] [place] [address] Medigap Part B Policy Number: [id number] [facility] Geenva Carlos PayID: [id number] [address] [address] [place] [address] Problems Date Description Provider Status Onset: 01/27/2017 [...] Tetanus Toxoid Adsorbed active pt had Guillain [place] 10/14/2017 Tapentadol active itching 10/14/2017 Seasonal active Medications Medication [...] Frey Test Strips /2007 Strips its glucometer inez Raza or jeanna Gonzalez Allopurinol Active Tablets 300mg 90tab 1 po qd Jude E. / s Carlos Raza Multi-Day Active Tablets 1 PO qd Unknown Vitamins Levothyroxine Active Tablets 150mcg 90tab 1 by mouth Unknown Sodium / s every day Trazodone HCL Active Tablets 100mg 30tab 3 by mouth Unknown /0000 s every night at bedtime Tramadol HCL [...] Hx Tablets 1000mg 1 po qd Jude Frey /2008 Jennifer Raza M.D. 11/19 Testosterone 08/09 [...] po qd x 1 Jude Frey /2007 palma clifford - matthew to Carlos 12/14 bid Prandin [...] Hx Unknown / - 11/19 Calcium Citrate 00/ Hx Unknown + D3 / - 11/19 Fish Oil Ultra 00/ Hx Unknown / - 11/19 Ascorbic Acid 00/00 Hx Unknown / - 11/19 Cephalexin Hx Capsules 500mg as directed Unknown / - 01/26 Meloxicam Hx Tablets 15mg daily Unknown / - 01/26 Nucynta ER 0000 Hx Tablets 50mg Unknown / ER 12HR - 01/26 Oxycodone HCL 0000 Hx Tablets 10mg 1 tab q4-6 Unknown / hours - 01/26 Victoza 00 Hx Solution 18mg/3ML John Faith, Pen-Ofelia KNIGHT - t 01/26 Gabapentin 0000 Hx Capsules 400mg 1 PO every Unknown / morning 2 PO - at bedtime 01/27 Morphine 00/00 Hx Unknown Sulfate ER / - 10/13 Vital Signs Date Vital Result Comment 10/14/2017 Height 70 inches 5'10" Heart Rate [...] 25.0 mmol/L 22-32 Anion Gap 4.0 mmol/L 2 60 Glucose 150 mg/dL High 70-105 BUN [...] 08/20/2007 Surgical Pathology <SEE 85 NOTE> 1 Flat Lock Operator: [id number] 2 Flat Lock Operator: [id number] 3 Flat Lock Operator: [id number] 4 Anion gap measurement may be of limited value in the presence of any alkalosis, especially in a combined acid base disorder. . 5 Note change in reference range as of 06/23/08. The change was based on recommendations from the [employer]. 6 Please note change in [...] THAN 10 . 10 Test Performed by: [facility] Pathology [address] [place] [address] Supervisor Blasting: Calin Thompson III, M.D. 11 Anion gap measurement may be of limited value in the presence of any alkalosis, especially in a combined acid base disorder. . 12 Note change in reference range as of 06/23/08. The change was based on recommendations from the [employer]. 13 Please note change in [...] IN SELECTIVE PATIENTS <6.0%. PLEASE REFER TO [employer] DIABETIC CARE GUIDELINES FOR FURTHER INFORMATION. 18 Test Performed by: [facility] [address] [place] [address] Supervisor Blasting: Calin Thompson III, M.D. 19 PLEASE NOTE NEW REFERENCE RANGES. 20 THERAPEUTIC TARGET FOR THE TREATMENT OF DIABETES MELLITUS PATIENTS IS <7% HBA1C, AND IN SELECTIVE PATIENTS <6.0%. PLEASE REFER TO [employer] DIABETIC CARE GUIDELINES FOR FURTHER INFORMATION. 21 Test Performed by: [facility] Pathology [address] [place], [place] [id number] Supervisor Blasting: Calin Thompson III, M.D. 22 Anion gap measurement may be of limited value in the presence of any alkalosis, especially in a combined acid base disorder. . 23 Note change in reference range as of 06/23/08. The change was based on recommendations from the [employer]. 24 Please note change in [...] CLINICAL DIAGNOSTIC PROCEDURES. 28 Test Performed by: [facility] Pathology [address] [place], [place] [id number] Supervisor Blasting: Calin Thompson III, M.D. 29 FASTING 30 [...] IN SELECTIVE PATIENTS <6.0%. PLEASE REFER TO [employer] DIABETIC CARE GUIDELINES FOR FURTHER INFORMATION. 33 Test Performed by: [facility] [address] [place] [address] Supervisor Blasting: Calin Thompson III, M.D. 34 Anion gap measurement may be of limited value in the presence of any alkalosis, especially in a combined acid base disorder. . 35 Note change in reference range as of 06/23/08. The change was based on recommendations from the [employer]. 36 Please note change in reference range effective 08 . 37 TEST PERFORM BY [facility] PLEASE NOTE NORMAL RANGE 300-800 MOSM/KG 38 Anion gap measurement may be of limited value in the presence of any alkalosis, especially in a combined acid base disorder. . 39 Note change in reference range as of 06/23/08. The change was based on recommendations from the [employer]. 40 Please note change in reference range effective 08 . 41 TEST PERFORM BY [facility] PLEASE NOTE NORMAL RANGE 275-295 MOSMOL/KG 42 REFERENCE RANGE: AM 8.7-22.4 PM LESS THAN 10 . 43 Anion gap measurement may be of limited value in the presence of any alkalosis, especially in a combined acid base disorder. . 44 Note change in reference range as of 06/23/08. The change was based on recommendations from the [employer]. 45 Please note change in reference range effective 08 . 46 REFERENCE RANGE: AM 8.7-22.4 PM LESS THAN 10 . 47 Anion gap measurement may be of limited value in the presence of any alkalosis, especially in a combined acid base disorder. . 48 Note change in reference range as of 06/23/08. The change was based on recommendations from the [employer]. 49 Please note change in [...] THAN 10 . 53 Test Performed by: [facility] [address] [place] [address] Supervisor Blasting: Calin Thompson III, M.D. 54 Test Performed by: [facility] [address] [place] [address] Supervisor Blasting: Calin Thompson III, M.D. 55 Anion gap measurement may be of limited value in the presence of any alkalosis, especially in a combined acid base disorder. . 56 Note change in reference range as of 06/23/08. The change was based on recommendations from the [employer]. 57 Please note change in [...] IN SELECTIVE PATIENTS <6.0%. PLEASE REFER TO [employer] DIABETIC CARE GUIDELINES FOR FURTHER INFORMATION. 67 Test Performed by: [facility] Pathology [address] [place] [address] Supervisor Blasting: Calin Thompson III, M.D. 68 Test Performed by: [facility] [address] [place] [address] Supervisor Blasting: Calin Thompson III, M.D. 69 Test Performed by: [facility] [address] [place] [address] Supervisor Blasting: Calin Thompson III, M.D. 70 Anion gap measurement may be of limited value in the presence of any alkalosis, especially in a combined acid base disorder. . 71 Please note change in reference range effective 08 . 72 REFERENCE RANGE: AM 8.7-22.4 PM LESS THAN 10 . 73 ---- RUN DATE: 02/16/08 [facility] NMI LIVE PAGE 1 RUN TIME: 1520 Specimen Inquiry RUN USER: INTERFACE [id number] CHRIS CARLOS <REG REF 02/14> ([id number]) ITALO Mcqueen MD, Bairon Back -- Specimen: [id number] SOUT Spec Date: 02/15/[address]: Bairon hudson MD Spec Type: SURGICAL P Received: 02/15/08-6219 Copies to: Jude Raza III, MD SPECIMEN [...] 02/16/08 1519 -- -- DEPARTMENT OF PATHOLOGY, [address] [place] [address] [facility] Permit #[id number] Nando Mercado M.D. Director of [employer] -- 74 NORMAL RANGE MALES 1 - [...] - 62 . 76 Test Performed by: [facility] Pathology [address] [place] [address] Supervisor Blasting: Calin Thompson III, M.D. 77 PATIENT MAY [...] is requested. Contact the Microbiology Department at [phone]. N^NEGATIVE BY IMMUNOASSAY^CRY N^NEGATIVE BY IMMUNOASSAY^RICH 81 [...] IN SELECTIVE PATIENTS <6.0%. PLEASE REFER TO [employer] DIABETIC CARE GUIDELINES FOR FURTHER INFORMATION. 85 ---- RUN DATE: 08/21/07 [facility] NMI LIVE PAGE 1 RUN TIME: 1531 Specimen Inquiry RUN USER: INTERFACE [id number] CHRIS CARLOS/Jacky <REG REF 08/19> ([id number]) TAYA Gilliland MD, Reinaldo -- Specimen: [id number] SOUT Spec Date: 08/20/[address]: Reinaldo harrell MD Spec Type: SURGICAL [...] 08/21/07 1531 -- -- DEPARTMENT OF PATHOLOGY, [address] [place] [address] [facility] Permit #[id number] Nando Mercado M.D. Director of Laboratories Karthik Angulo II, M.D . Pathologist -- Procedures Date CPT Code Description Status 10/02/201733848 Carpal Tunnel Release Completed 10/02/2017 49705 Neuroplasty &/Or Transposition; Ulnar Nerve At Completed Elbow 10/02/2017 37556 Neuroplasty &/Or Transposition; Ulnar Nerve At Completed Elbow 08/28/2017 27387 Carpal Tunnel Release Completed 08/28/2017 68208 Neuroplasty &/Or Transposition; Ulnar Nerve At Completed Elbow 08/28/2017 85733 Neuroplasty &/Or Transposition; Ulnar Nerve At Completed Elbow 05/20/2017 23036 Rad Exam; Wrist Limited, 2 Views Completed 01/28/2017 27017 Nerve Conduction 03-04 Studies Completed 10/29/2016 THR Total Hip Replacement Completed 10/29/2016 THR Total Hip Replacement Completed 10/28/2016 20607 Treadmill Interp/Report Only Completed 10/28/2016 50867 Stress Test Supervsn W/Out I/R Completed 10/27/2016 26969 EKG, Interpretation Only Completed 03/02/2014 68007 Rad Exam; Hand Comp Completed Encounters Type Date Location Provider CPT E/M Dx Office Visit 09/16/2017 [place] [address] M19.011 2:00p Of [facility] Office Visit 05/30/2017 A[facility]/Heike Araya, 61957 E11.42 11:30a [facility] [employer] [facility] Office Visit 05/20/2017 [place] [address] G56.03 3:00p Of [facility] G56.23 Office Visit 01/27/2017 9:00a [place]/Heike Araya, 33641 E11.42 [facility] Carlos G56.03 G56.22 G62.9 Office Visit 10/31/2016 2:54p [facility], Demond Acosta M.D. 95638 E11.22 Hospitalists S72.002A N18.3 I10 Office Visit 10/30/2016 2:53p [facility] Demond Acosta M.D. 67036 S72.002A Assoc, Hospitalists N18.3 E11.22 I10 Office Visit 10/29/2016 2:52p [facility] Demond Acosta M.D. 40060 S72.002A Ass, Hospitalists N18.3 E11.22 I10 Office Visit 10/28/2016 2:52p [facility], Esteban Gaona, 51994 N18.3 Hospitalurszula Gonzalez,FACP S72.002A E11.22 Office Visit 10/27/2016 2:51p [facility] Esteban Gaona, 69820 S72.002A Assoc, Hospitalists Carlos,FACP N18.3 E11.22 Office Visit 10/27/2016 1:44p [facility] Tomas Gaines, 19784 M87.052 Of [facility] KNIGHT M16.12 Office Visit 10/26/2016 2:50p [facility] Dwight Isaac, 86807 E11.22 Assoc, Hospitalists N.PSharron S72.002A N18.3 I10 Office Visit 10/26/2016 1:44p [facility] Tomas Gaines 22940 M87.052 Of [facility] KNIGHT M16.12 Office Visit 10/25/2016 2:42p [facility] 40021 S72.002A Assoc,brandi ZAFAR M.D. Hospitalists E11.22 N18.3 I10 Office Visit 07/12/2014 9:15a [facility] Gato Stewart M.D. 16956 716.91 Of [facility] Office Visit 03/23/2014 9:15a [facility] Mary Leija, 61374 715.14 Of [facility] Office Visit 03/02/2014 1:15p [facility] Mary Leiaj, 60042 719.44 Of [facility] Office Visit 09/03/2013 6:03p [facility], 45382 482.9 Assoc, Hospitalists Carlos 250.00 995.90 401.9 Office Visit 09/02/2013 6:02p [facility], 18941 995.90 Assoc, Hospitalists Carlos 482.9 250.00 401.9 Office Visit 09/01/2013 6:02p [facility], 60464 995.90 Assoc, Hospitalists Carlos 482.9 250.00 401.9 Office Visit 08/31/2013 6:01p [facility], 43170 995.90 Assoc, Hospitalists Carlos 482.9 250.00 401.9 Office Visit 08/31/2013 1:10p [facility] Rudy Lezama, 97478 728.87 Services Of Joyce Gonzalez V12.40 Office Visit 08/30/2013 6:00p [facility], 39880 995.90 Assoc, Hospitalists Carlos 482.9 250.00 401.9 Office Visit 08/29/2013 5:53p [facility], 94100 995.90 Assoc, Hospitalists Carlos 482.9 250.00 401.9 Office Visit 08/28/2013 9:54a [facility] [place], 16556 780.79 Assoc, Hospitalists M.D. 276.1 275.2 276.51 Office Visit 08/09/2009 10:00a DO Not Use [facility], 41819 401.1 [facility] 780.57 227.3 Office Visit 02/07/2009 10:30a [facility], 13534 250.00 [facility] M.D. Office Visit 05/03/2008 9:15a [facility], 97356 787.02 [facility] M.D. 250.00 Office Visit 04/22/2008 10:00a [facility] Services Toy Morales, 90793 227.9 [facility] M.D. Office Visit 02/02/2008 9:30a [facility], 68023 787.02 [facility].D. 789.00 244.9 250.00 Office Visit 01/19/2008 11:00a [facility], 35391 787.02 [facility].D. 780.79 250.00 Office Visit 12/14/2007 10:15a [facility], 29549 250.00 [facility] M.D. Office Visit 11/13/2007 10:15a [facility], 64424 250.00 [facility] M.D. 401.1 244.9 Plan of Care Future Appointment(s):12/16/2017 10:00 am - Carlo Trent MD at [facility] At Sp[facility]ytjf81/03/2018 7:45 am - Anabella Huston MD at [facility]11/17/2017 10:30 am - Kentrell Benson M.D. at [facility]10/28/2017 10:00 am - Anabella Huston MD at [facility]12/29/2017 2:00 pm - Julia Araya M.D. at [place]
[2017-11-05] MEDS ORDERED: Famotidine IV* 10 MG/ML 2 ML (20 mg) ONE (06:43)
[2017-11-05] MEDS ORDERED: Buffered Lidocaine 0.9% SYRIN* 5 ML/SYR SYRINGE ONE (06:43)
[2017-11-05] MEDS ORDERED: ceFAZolin 1 GM in Dextrose (*) 1 GM/50 ML BAG IVPB ONE (06:43)
[2017-11-05] MEDS ORDERED: ceFAZolin 2 GM PREMIX (*) 2 GM/50 ML BAG IVPB ONE (06:43)
[2017-11-05] MEDS ORDERED: KETAMINE HCL* 50 MG/ML 10 ML VIAL ONE (07:06)
[2017-11-05] MEDS ORDERED: fentaNYL* 50 MCG/ML 2 ML VIAL (100 MCG VIAL) ONE ×3 (07:06→10:44)
[2017-11-05] MEDS ORDERED: Midazolam* 1 MG/ML 10 ML VIAL (10 MG) ONE (07:06)
[2017-11-05] MEDS ORDERED: Atracurium* 10 MG/ML 10 ML VIAL ONE (07:07)
[2017-11-05] MEDS ORDERED: Phenylephrine INJ* 10 MG/ML 1 ML VIAL (10 MG) ONE (10:07)
[2017-11-05] MEDS ORDERED: Lidocaine 2% PF * 5 ML VIAL ONE (10:07)
[2017-11-05] MEDS ORDERED: Succinylcholine* 20 MG/ML 10 ML VIAL ONE (10:08)
[2017-11-05] MEDS ORDERED: Ondansetron INJ* 2 MG/ML VIAL ONE (10:08)
[2017-11-05] MEDS ORDERED: Propofol* 10 MG/ML 20 ML BTL IV PUSH ONE (10:08)
[2017-11-05] MEDS ORDERED: Bupivacaine 0.25% SDV* 30 ML ONE (10:08)
[2017-11-05] MEDS ORDERED: Ketorolac INJ* 30 MG/ML 1 ML VIAL ONE (10:08)
[2017-11-05] MEDS ORDERED: oxyCODONE/Acetamin 5/325 MG* TAB PO PRN (10:39)
[2017-11-05] MEDS ORDERED: diPHENhydraMINE PO* 25 MG PO PRN (10:39)
[2017-11-05] MEDS ORDERED: Docusate CAP* 100 MG PO PRN ×2 (10:39→10:48)
[2017-11-05] MEDS ORDERED: Morphine INJ* 2 MG/ML 1 ML CARPUJECT IV PRN (10:39)
[2017-11-05] MEDS ORDERED: Bisacodyl SUPP* 10 MG SUPP PR PRN (10:39)
[2017-11-05] MEDS ORDERED: Polyethylene Glycol 3350* 17 GM PACKET PO PRN (10:39)
[2017-11-05] MEDS ORDERED: Temazepam CAP* 15 MG PO PRN (10:39)
[2017-11-05] MEDS ORDERED: Ondansetron TAB* 4 MG PO PRN (10:39)
[2017-11-05] MEDS ORDERED: Ondansetron INJ* 2 MG/ML VIAL IV PRN (10:39)
[2017-11-05] MEDS ORDERED: Acetaminophen TAB* 325 MG PO PRN (10:39)
[2017-11-05] MEDS ORDERED: diPHENhydraMINE IV* 50 MG/ML 1 ml VIAL (BENADRYL) IV PRN (10:39)
[2017-11-05] MEDS ORDERED: Morphine INJ* 10 MG/ML 1 ML CARPUJECT ONE (10:44)
[2017-11-05] MEDS: fentaNYL* 50 MCG/ML 2 ML VIAL (100 MCG VIAL) IV PRN ×4 (10:46→12:35)
[2017-11-05] MEDS: Morphine INJ* 2 MG/ML 1 ML CARPUJECT IV PRN ×5 (10:47→12:50)
[2017-11-05] MEDS ORDERED: Insulin REGULAR(*) 1 UNITS UNIT ONE (10:57)
--- NOTE | 2017-11-05 11:43 | RAD ---
INDICATION: Status post total right shoulder replacement surgery. TECHNIQUE: 4 views of the right shoulder were obtained. FINDINGS: The patient is status post right shoulder replacement surgery with a reversed polarity prosthesis. The bones and prostheses are in normal alignment. There is a surgical drain present. IMPRESSION: STATUS POST TOTAL RIGHT SHOULDER REPLACEMENT SURGERY.
[2017-11-05] MEDS ORDERED: Dextrose 50% Syringe 50 ML* 25 GM/50 ML SYRINGE IV PUSH PRN (12:17)
[2017-11-05] MEDS: oxyCODONE/Acetamin 5/325 MG* TAB PO PRN ×2 (13:43→19:29)
[2017-11-05] MEDS ORDERED: Morphine INJ* 2 MG/ML 1 ML SYRINGE (TWO MG - NEW SYRINGE VERSION) IV PRN (14:00)
--- NOTE | 2017-11-05 14:38 | CONS ---
CC: Dr. Burgos; Dr. Huston * CONSULTATION REPORT: DATE OF CONSULT: 11/05/17 PRIMARY CARE PROVIDER: Dr. Burgos. REQUESTING PHYSICIAN FOR CONSULT: Dr. Huston. MY ATTENDING PHYSICIAN WHILE IN THE HOSPITAL: Dr. Anahi Farias (report dictated by Baldomero Isaac NP) REASON FOR MEDICAL CONSULT: Evaluation of medical management and comorbid medical conditions. HISTORY OF PRESENT ILLNESS: I refer you to Dr. Huston's H and P for further details. In short, Mr. Bae is a 76-year-old male patient who has been having significant amount of right shoulder discomfort and pain due to significant osteoarthritis. He had had a shoulder superior capsular reconstruction on the right side a few years ago and re-torn the rotator cuff and was told that it cannot be fixed again. He has been dealing with pain ever since. He sought care with Dr. Huston and it was felt that right total shoulder reverse by Dr. Huston would help better manage his pain as he was failing conservative therapy , so he underwent the procedure today. He does carry fairly significant history. 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 He is evaluated in the PACU. He is pretty drowsy. He says he is not having any chest pain or any shortness of breath. He says he is feeling otherwise well, just tired. Denies feeling nauseous. He said he does not have any abdominal pain. No chest pain, no shortness of breath, and says he has not vomited. He says he just feels tired at this point, but because of his medical complexity, we were asked to evaluate in consult. PAST MEDICAL HISTORY: Significant for: 1. Diabetes. 2. Depression. 3. Hypertension. 4. Neuropathy. 5. Pituitary tumor. 6. Guillain-Dale. 7. History of nephrolithiasis. 8. Arthritis. 9. Gout. 10. PTSD. 11. PVD. 12. Prostate cancer. 13. Hypothyroidism. 14. Autoimmune hepatitis with cirrhosis. 15. 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 PAST SURGICAL HISTORY: 1. He has had carpal tunnel repair. 2. He has had bilateral shoulder arthroscopies and now he has had a right shoulder total reverse. 3. He has had left hip surgery. 4. He has had a pituitary tumor removal. MEDICATIONS: Home meds according to the preop list include: 1. Prednisone 2 mg p.o. daily. 2. Glipizide 2.5 mg p.o. b.i.d. 3. Amlodipine 10 mg daily. 4. Trazodone 300 mg p.o. at bedtime. 5. Zantac 150 mg p.o. b.i.d. 6. Fish oil 1200 mg p.o. b.i.d. 7. Multivitamin 1 tablet daily. 8. Melatonin 6 mg p.o. daily. 9. Victoza 1.2 mg subcu q.a.m. 10. Synthroid 150 mcg p.o. daily. 11. Neurontin 1200 mg at bedtime. 12. Prozac 40 mg p.o. daily. 13. Vasotec 10 mg p.o. daily. 14. Colace 100 mg p.o. b.i.d. as needed. 15. B12 250 mcg p.o. daily. 16. Allopurinol 300 mg p.o. daily. ALLERGIES TO MEDICATIONS: Include NUCYNTA. FAMILY HISTORY: His mother's history is really unknown. He does not know what she or her medical condition. It was reviewed. Father did have a history of an UT and he from this. SOCIAL HISTORY: He does not smoke, does not drink. His surrogate decision maker is his . He is . REVIEW OF SYSTEMS: There is no documented fever. He denied having any significant weight change. There was no double vision. He denies having any ear discharge. Denies having any rhinorrhea. No sore throat, no thyroid enlargement. Denies having any chest pain. There is again no orthopnea. Denies having any abdominal pain. No nausea, no vomiting. There is no dysuria , no frequency. There was no seizure. No loss of consciousness. No pruritus and no skin ulcerations. Review of 14 systems completed, all others negative. PHYSICAL EXAM: Vital Signs: Blood pressure 121/69 with the pulse of 76, respirations were 16, O2 sat 92%, his temperature was 96.8. General: At this time, Mr. Bae is a 76-year-old male patient. He is evaluated within the PACU. He does not appear to be in any acute distress. He is sitting in the stretcher. HEENT: Head: Atraumatic, normocephalic. Eyes: EOMs are intact. Sclerae anicteric, not pale. Throat: Oral mucosa appears to be dry. No oropharyngeal erythema. Neck: Supple. Lungs were clear to auscultation bilaterally. No wheezes, rales, or rhonchi. Heart: Sounds S1, S2. Regular rate and rhythm. No murmurs, rubs, or gallops. Abdomen was soft, flat. It was nontender. Bowel sounds were hypoactive. Extremities: Pulses were 2+ throughout. Distal CSM checks were intact to the right upper extremity. He is moving lower extremities with 5/5 strength, his left upper extremity with 5/5 strength. Neurologically, the patient is awake, he is alert, he is drowsy but awakens. He is alert, he is alert, he is oriented x3. His tongue is midline, billing typist were equal. He had no gross focal deficits. His skin intact exception to the right upper extremity he does have an incision covered in an ABD dressing and a Hemovac intact there. DIAGNOSTIC STUDIES/LAB DATA: His preoperative urine culture showed no growth. Preop other labs at this point showed sodium of 138, potassium of 4.7, chloride of 107, bicarb 24, BUN was 38, creatinine 1.62, his glucose is 154, albumin was 3.9. ALT 18, AST 20, alk phos 90. He did have an INR 0.96, PTT of 26.7. WBC of 5.8, RBC of 4.02, hemoglobin 12.5, hematocrit of 38, his platelet counts were 66, which runs near his baseline. He did have a preop Holter, which showed a sinus rhythm with a right bundle branch block. No significant pauses were seen. Heart rate ranges from 55 to 121 averaging 68 beats per minute. No dysrhythmias were noted. Baseline EKG shows sinus rhythm, right bundle branch block, first-degree AV block, rate of 61. Chest x-ray preoperatively showed no evidence for acute intrathoracic disease. He had a nuclear stress test in 2016, which showed no evidence for stress- induced ischemia or presence of an infarct. Old medical records were reviewed. ASSESSMENT AND PLAN: Mr. Bae is a 76-year-old male patient with multiple medical problems coming into the orthopedic services today for a right total shoulder reverse. We were asked to evaluate in consult. Recommendations at this point are: 1. Status post right total shoulder reverse. Defer the management to Dr. Huston and her team. 2. Diabetes. I recommend putting him on lispro sliding scale. 3. Depression and posttraumatic stress disorder. Continue his Prozac. 4. Hypertension. His blood pressure last one was 121/69. At this point, hold on his blood pressure meds and restart when able. 5. Neuropathy. Continue gabapentin. 6. History of pituitary tumor. Follow with the primary. 7. History of Guillain-Dale. Not an active issue. 8. History of thrombocytopenia. We will monitor the platelets closely in the setting of surgery. If there is any evidence of bleeding or if he does become more thrombocytopenic, we will certainly get in touch with our hematology group here. We can continue heparin for DVT prophylaxis but we will need to follow the platelets closely and we will check the CBC in the morning. 9. History of peripheral vascular disease. Continue meds as prescribed. 10. Hypothyroidism. Continue Synthroid. 11. History of autoimmune hepatitis with cirrhosis. He is on long-standing prednisone. I would continue this. His blood pressure right now is 121/69. If he does become hypotensive, we may need to consider giving him stress-dosed steroids, but at this time we will monitor. 12. Gout. Continue meds as prescribed. 13. Arthritis. Continue meds as prescribed. 14. History of kidney stones. Not an active issue. 15. DVT prophylaxis. I will defer to the primary team, but again, I do see they did order Lovenox, we will follow the platelets closely. 16. Code status. He is full code. 17. Fluid, electrolytes, and nutrition. I would recommend consistent carb diet. TIME SPENT: On the consult was 60 minutes, greater than half the time was spent [id number] with the patient obtaining my history and physical, the other half time was spent going over the plan of care with the patient and implementing plan of care. I did discuss the plan of care with my attending, Dr. Farias; she is in agreement. BALDOMERO ISAAC, DAKOTAH [id number]/[facility] #: [id number] SOL
[2017-11-05] MEDS: ceFAZolin 1 GM VIAL(*) 1 GM in NS 0.9% 50 ML* 50 ML IVPB SCH (16:05)
[2017-11-05 16:08] LABS: ABS Basophils 0 10^3/ul (0-0.2); ABS Eosinophils 0 10^3/ul (0-0.6); ABS Lymphocytes 0.4 10^3/ul (1.0-4.8); ABS Monocytes 0.7 10^3/ul (0-0.8); ABS Neutrophils 6.6 10^3/ul (1.5-7.7); ABS Nucleated RBC 0.01 10^3/ul; Eosinophil % 0.4 % (0-6); Hematocrit 33 % (42-52); Lymphocyte % 5.3 % (25-47); Mean Corpuscular HGB Conc 33 g/dl (31-36); Mean Corpuscular Hemoglobin 32 pg (27-31); Mean Corpuscular Volume 95 fL (80-94); Mean Platelet Volume 9 um3 (7.4-10.4); Nucleated Red Blood Cells % 0.1; Red Blood Count 3.47 10^6/ul (4.0-5.4); Red Cell Distribution Width 16 % (10.5-15); White Blood Count 7.8 10^3/ul (3.5-10.8)
[2017-11-05 16:24] LABS: Platelet Count 82 10^3/ul (150-450)
[2017-11-05] MEDS: Insulin LISPRO* 1 UNITS UNIT SUBCUT SCH (17:34)
[2017-11-05] MEDS ORDERED: MELATONIN 6 MG PO SCH (18:00)
[2017-11-05] MEDS ORDERED: amLODIPine TAB* 5 MG PO SCH (18:00)
[2017-11-05] MEDS: Gabapentin CAP(*) 400 MG PO SCH (18:10)
[2017-11-05] MEDS: Famotidine TAB* 20 MG PO SCH (19:30)
--- NOTE | 2017-11-05 20:37 | OP ---
CC: PCP, Jose Burgos MD * DATE OF OPERATION: 11/05/17 - ROOM #331 DATE OF : 38 SURGEON: Anabella Huston MD. ASSISTANTS: YARELIS Lee, Malika Sykes, and Asif HSIEHIII. ANESTHESIOLOGIST: Dr. Mcmanus. ANESTHESIA: General interscalene block. PREOPERATIVE DIAGNOSIS: Right shoulder rotator cuff arthropathy. POSTOPERATIVE DIAGNOSIS: Right shoulder rotator cuff arthropathy. OPERATIVE PROCEDURE: 1. Right shoulder reverse shoulder arthroplasty. 2. Open biceps tenodesis. 3. Removal of foreign body x1. INDICATIONS: Chris Bae is a 76-year-old male who has had persistent right shoulder pain for a number of years. He had a previous superior capsular reconstruction in the . He re-tore his cuff. He has had persistent issues with raising his arm and significant pain. He has elected to proceed with surgical treatment. Risks and benefits of surgery were discussed at length and included, but are not limited bleeding, infection, damage to nerves vessels, surrounding structures, wound nonhealing, persistent pain, need for surgery, scarring, stiffness, incomplete relief of symptoms and risk of anesthesia. DESCRIPTION OF PROCEDURE: The patient was greeted in the preoperative area by the attending surgeon. Correct extremity was marked and the consent was confirmed. The patient underwent interscalene nerve block by the anesthesiologist after which he was brought back to the operating suite where he was placed in the supine position on the operating table and then underwent general anesthesia with endotracheal intubation, after which he was appropriately positioned in the lazy beach chair position. In the bed, all bony prominences were padded. He was secured. The right shoulder was prepped and draped free with chlorhexidine soap, scrub and alcohol wipe and a final prep with ChloraPrep. After appropriate surgical pause indicating side, site, procedure and administration of antibiotics, the deltopectoral incision was made with a 15- blade. Soft tissues were carefully dissected to expose the cephalic vein and the deltopectoral interval which was incised and retracted carefully. The clavipectoral fascia was identified. The head was found to be superiorly riding. There was a large bursal sac. The pec tendon was identified. The incision in the humerus, first 1-2 cm were released using electrocautery device. The biceps was then tenodesed using a heavy nonabsorbable suture. It was then tenotomized proximal to that and followed into the joint line. The biceps had calcification and was found to sublux. There was full tear of the subscap as well as supra and infraspinatus tendons. The lateral aspect of the conjoint of the biceps was identified and exposure was obtained. The subscap was retracted and torn to the level of the glenoid. The CA ligament was carefully released. Adhesions were released from the deltoid. The capsule and fascia was then also carefully released. The 3 sisters were cauterized to prevent postoperative bleeding. The capsule as well as the inferior aspect of the shoulder was then carefully released to expose a very large inferior osteophyte. There were grade 4 changes with the deformity of the humeral head. The head was exposed and carefully removed. The osteophytes were removed using an osteotome with a rongeur to expose the humeral neck. Once this was completely exposed, the provisional neck cut was then made using sagittal saw. At this point, there were 2 anchors that were visible, one was removed from the humeral stump. The humerus was then placed back into the wound and it touches direct to the glenoid. Posterior retractor was placed posteriorly as well as a superior retractor above the glenoid. The labrum was then carefully excised, which was somewhat difficult due to the patient's body habitus. The anterior aspect of the labrum was removed using the electrocautery device. The inferior aspect of the glenoid was exposed with tension on the soft tissue and was released using electrocautery device. There were grade 4 changes with exposed bone and anterior wear, could not correlate it with the preoperative imaging. The provisional site was marked and then the glenoid guide pin was then placed in the center of the glenoid. This was then sized to 25 mm, base plate reamer was then used to ream. Finally, the center peg SR drill bit was then used to drill appropriately. All the implants were removed. The drill was removed. The wounds were irrigated. The final implant was assembled on the back table and then impacted into position with excellent purchase. Two interlocking cortical screws were then placed inferiorly and superiorly. They were drilled and then tapped and then the final placed to the appropriate length. The glenosphere was then impacted and positioned and secured with a set screw. At this point, attention was directed to the humerus. The humerus was delivered to the wound. The canal finder was used to find the canal. The second anchor was identified and removed. The broaching began beginning with a size [address] up to a size 23 mm, which was found to have acceptable fit. The 24 mm diameter stem was found to be too tight. That is why a 23 was chosen and trialed off. The size + 6 trial was then used and eventually had a good fit and forward flexion passively to about 150, abduction to about 90, external rotation to about 45. There was appropriate amount of shuck and axial load as well as posterior extension and internal rotation were identified and found to have appropriate amount of shuck and give. The shoulder was then carefully dislocated. Final implants were placed and packed into position. The shoulder was taken through range of motion again with a trial poly and then the final trial was chosen and then packed into position. Subscap was unable to be repaired due to the level of the retraction. The wounds were copiously irrigated with sterile saline. An intra-articular drain was placed. The deltopectoral interval was closed with #2 and #5 Ethibond sutures in interrupted fashion. The wounds were irrigated yet again. The wound was closed in layers with 2-0 Vicryl and 3-0 Monocryl. Sterile dressings were applied, Cryo/cuff as well as an UltraSling. He was woken from anesthesia and transferred to PACU in stable condition. POSTOPERATIVE PLAN: He will be nonweightbearing. He will be in a sling for 6 weeks. He will be on 24 hours of postoperative antibiotics. He will be on DVT prophylaxis while he is in the hospital and he will be discharged on that. We will obtain a medicine consult due to his medical issues. He will begin passive and active elbow hand and wrist range of motion beginning tomorrow. X- rays were taken in the PACU. He will be admitted and potentially discharged on postop day 1 or 2. [id number]/[facility] #: [id number] SOL
[2017-11-05] MEDS ORDERED: glipiZIDE TAB* 5 MG PO SCH (21:00)
[2017-11-06] MEDS: ceFAZolin 1 GM VIAL(*) 1 GM in NS 0.9% 50 ML* 50 ML IVPB SCH ×2 (00:53→08:36)
[2017-11-06] MEDS: oxyCODONE/Acetamin 5/325 MG* TAB PO PRN ×2 (07:46→13:56)
--- NOTE | 2017-11-06 08:07 | PN ---
Progress Note - Progress Note Date of Service: 11/06/17 SOAP: Subjective: [] Patient seen OOB in chair. He confirms 910 R shoulder pain. Denies CP/ SOB/ fever/ Chills. Objective: [] Vital Signs Temp 98.2 F 11/05/17 23:36 Pulse 72 11/05/17 23:36 Resp 18 11/06/17 07:46 BP 156/81 11/05/17 23:36 Pulse Ox 96 11/06/17 07:24 Intake & Output 11/05/17 11/06/17 11/06/17 18:59 06:59 18:59 Intake Total 2450 1650 Output Total 425 1050 Balance 202 600 Intake: IV Fluids 1700 980 CEFAZOLIN 3GM IV 100 LR 980 lr 1600 IVPB 110 ABX - CEFAZOLIN 110 Oral 750 560 Output: Hemovac Amount #1 400 125 Urine 25 925 Laboratory Last Values WBC 7.8 10^3/ul (3.5-10.8) 11/05/17 15:55 RBC 3.47 10^6/ul (4.0-5.4) L 11/05/17 15:55 Hgb 11.0 g/dl (14.0-18.0) L 11/05/17 15:55 Hct 33 % (42-52) L 11/05/17 15:55 MCV 95 fL (80-94) H 11/05/17 15:55 MCH 32 pg (27-31) H 11/05/17 15:55 MCHC 33 g/dl (31-36) 11/05/17 15:55 RDW 16 % (10.5-15) H 11/05/17 15:55 Plt Count 82 10^3/ul (150-450) L 11/05/17 15:55 MPV 9 um3 (7.4-10.4) 11/05/17 15:55 Neut % (Auto) 85.5 % (38-83) H 11/05/17 15:55 Lymph % (Auto) 5.3 % (25-47) L 11/05/17 15:55 Gallia % (Auto) 8.4 % (1-9) 11/05/17 15:55 Eos % (Auto) 0.4 % (0-6) 11/05/17 15:55 Baso % (Auto) 0.4 % (0-2) 11/05/17 15:55 Absolute Neuts (auto) 6.6 10^3/ul (1.5-7.7) 11/05/17 15:55 Absolute Lymphs (auto) 0.4 10^3/ul (1.0-4.8) L 11/05/17 15:55 Absolute Monos (auto) 0.7 10^3/ul (0-0.8) 11/05/17 15:55 Absolute Eos (auto) 0 10^3/ul (0-0.6) 11/05/17 15:55 Absolute Basos (auto) 0 10^3/ul (0-0.2) 11/05/17 15:55 Absolute Nucleated RBC 0.01 10^3/ul 11/05/17 15:55 Nucleated RBC % 0.1 11/05/17 15:55 POC Glucose (mg/dL) 228 mg/dL (70-100) H 11/06/17 07:44 General: Alert and in NAD. Calm and cooperative RUE: drain removed with tip intact and without complication. Sling in place. Sensation intact throughout RUE to light touch Assessment: []POD 1 sp right total shoulder reverse Plan: []NWB, no ROM right shoulder PT/OT Will need rehab at [place]. Will require cornell lift <Bri Rush - Last Filed: 11/06/17 13:10> - Progress Note SOAP: Subjective: PT seen and examined at 10:30 AM. doing ok. sleepybut arousable AFVSS NAD. dressing in place. sling in place. SILT grossly distally with 2+ radial pulse A/P POD#1. NWB, ROM of elbow, wrist, and hand only post op abx. discharge to home vs SNF. <Anabella Huston - Last Filed: 11/08/17 09:51>
[2017-11-06] MEDS: Insulin LISPRO* 1 UNITS UNIT SUBCUT SCH ×3 (08:37→17:42)
[2017-11-06 08:56] LABS: Hematocrit 29 % (42-52); Hemoglobin 9.9 g/dl (14.0-18.0); Mean Platelet Volume 8 um3 (7.4-10.4)
[2017-11-06 09:00] LABS: Platelet Count 54 10^3/ul (150-450)
[2017-11-06] MEDS ORDERED: Enalapril TAB* 20 MG PO SCH (09:00)
[2017-11-06] MEDS ORDERED: Liraglutide (NF) 18 MG/3 ML SUBCUT SCH (09:00)
[2017-11-06] MEDS: Famotidine TAB* 20 MG PO SCH (09:30)
[2017-11-06] MEDS: predniSONE TAB* 1 MG PO SCH (09:30)
[2017-11-06] MEDS: Levothyroxine TAB* 150 MCG TAB PO SCH (09:30)
[2017-11-06] MEDS: Multivitamins/Minerals TAB PO SCH (09:30)
[2017-11-06] MEDS: Allopurinol TAB* 300 MG PO SCH (09:30)
[2017-11-06] MEDS: FLUoxetine CAP* 20 MG PO SCH (09:30)
[2017-11-06] MEDS: Cyanocobalamin TAB* 500 MCG PO SCH (10:24)
[2017-11-06] MEDS ORDERED: Enoxaparin(*) 40 MG/0.4 ML SYR SUBCUT SCH (12:00)
--- NOTE | 2017-11-06 17:11 | PN ---
Subjective Date of Service: 11/06/17 Interval History: C/o weakness, Denies shortness of breath, Denies chest pain. Denies abd pain , N/V/D, Denies urinary symptoms. Family History: Unchanged from Admission Social History: Unchanged from Admission Past Medical History: Unchanged from Admission Objective Active Medications: Acetaminophen (Tylenol Tab*) 650 mg PO Q4H PRN PRN Reason: PAIN OR TEMPERATURE Allopurinol ([facility]oprim Tab*) [facility] Last Admin: 11/06/17 09:30 Dose: 300 mg Bisacodyl (Dulcolax Supp*) 10 mg RI DAILY PRN PRN Reason: constipation Cyanocobalamin (Vitamin B12 Tab*) 250 [facility]cg [facility] Last Admin: 11/06/17 10:24 Dose: 250 mcg Dextrose (D50w Syringe 50 Ml*) 12.5 gm IV PUSH .FOR FS < 60 - SS PRN PRN Reason: FS < 60 Diphenhydramine HCl (Benadryl Iv*) 25 mg IV Q6H PRN PRN Reason: itching Diphenhydramine HCl (Benadryl Po*) 25 mg PO Q6H PRN PRN Reason: itching Docusate Sodium (Colace Cap*) 100 mg PO BID PRN PRN Reason: CONSTIPATION Docusate Sodium (Colace Cap*) 100 mg PO BID PRN PRN Reason: CONSTIPATION Famotidine (Pepcid Tab*) 20 mg PO BID [facility] PRN Reason: Protocol Last Admin: 11/06/17 09:30 Dose: 20 mg Fluoxetine HCl (Prozac Cap*) [facility] Last Admin: 11/06/17 09:30 Dose: 40 mg Gabapentin (Neurontin Cap(*)) 1,200 mg PO QPM [facility] Last Admin: 11/05/17 18:10 Dose: 1,200 mg Lactated Ringer's (Lactated Ringers 1000 Ml Bag*) 1,000 mls @ 100 mls/hr IV PER RATE [facility] Last Admin: 11/06/17 03:25 Dose: 100 mls/hr Insulin Human Lispro (Humalog*) 0 units SUBCUT AC [facility] PRN Reason: Protocol Last Admin: 11/06/17 12:43 Dose: 12 units Lactulose (Lactulose*) 30 ml PO Q6H PRN PRN Reason: constipation Levothyroxine Sodium (Synthroid Tab*) 150 mcg PO [facility] Last Admin: 11/06/17 09:30 Dose: 150 mcg Magnesium Hydroxide (Milk Of Magnciara Liq*) 30 ml PO Q6H PRN PRN Reason: constipation Morphine Sulfate (Morphine Inj (Syringe)*) 2 mg IV Q2H PRN PRN Reason: PAIN - BREAKTHROUGH Multivitamins/Minerals (Theragran/Minerals Tab*) 1 tab PO [facility] Last Admin: 11/06/17 09:30 Dose: 1 tab Ondansetron HCl (Zofran Inj*) 4 mg IV Q6H PRN PRN Reason: nausea Ondansetron HCl (Zofran Tab*) 4 mg PO Q6H PRN PRN Reason: NAUSEA Oxycodone HCl (Roxycodone Tab*) 10 mg PO Q4H PRN PRN Reason: PAIN Oxycodone/Acetaminophen (Percocet 5/325 Tab*) 2 tab PO Q4H PRN PRN Reason: PAIN Last Admin: 11/06/17 13:56 Dose: 2 tab Oxycodone/Acetaminophen (Percocet 5/325 Tab*) 1 tab PO Q4H PRN PRN Reason: PAIN Polyethylene Glycol/Electrolytes (Miralax*) 17 gm PO DAILY PRN PRN Reason: Constipation Prednisone (Deltasone Tab*) 2 mg PO [facility] Last Admin: 11/06/17 09:30 Dose: 2 mg Temazepam (Restoril Cap*) 15 mg PO BEDTIME PRN PRN Reason: INSOMNIA Vital Signs - 8 hr 11/06/17 11/06/17 11/06/17 10:25 11:16 13:46 Temperature 97.6 F Pulse Rate 84 Respiratory 20 24 Rate Blood Pressure 158/71 (mmHg) O2 Sat by Pulse 97 94 Oximetry 11/06/17 11/06/17 13:56 15:20 Temperature 98.0 F Pulse Rate 76 Respiratory 18 24 Rate Blood Pressure 163/75 (mmHg) O2 Sat by Pulse 100 Oximetry Oxygen Devices in Use Now: Nasal Cannula Appearance: Awake, alert but appears tried, sitting in the chair Eyes: No Scleral Icterus, PERRLA Ears/Nose/Mouth/Throat: NL Teeth, Lips, Gums, Mucous Membranes Moist Neck: NL Appearance and Movements; NL JVP, Trachea Midline Respiratory: Symmetrical Chest Expansion and Respiratory Effort, Clear to Auscultation Cardiovascular: NL Sounds; No Murmurs; No JVD, No Edema Abdominal: NL Sounds; No Tenderness; No Distention, - - obese Extremities: No Edema, No Clubbing, Cyanosis, - - radial pulse +2 to right wrist Skin: No Rash or Ulcers, - - dressing intact to right shoulder Neurological: Alert and Oriented x 3, NL Sensation Nutrition: Taking PO's Result Diagrams: 11/06/17 08:35 11/06/17 08:35 Assess/Plan/Problems-Billing Assessment: Mr. Bae is a 76 y.o male that presented to the hospital for an elective right total shoulder reverse. He carries a history of DM, HTN, Thrombocytopenia, GERD , depression, and CKD. Managing medical condition while in the hospital. - Patient Problems (1) S/p reverse total shoulder arthroplasty Current Visit: Yes Status: Acute Code(s): Z96.619 - PRESENCE OF UNSPECIFIED ARTIFICIAL SHOULDER JOINT SNOMED Code(s): 993867009 Comment: Care as per Ortho PT/OT as per Ortho (2) Diabetes Current Visit: No Status: Acute Priority: High Code(s): E11.9 - TYPE 2 DIABETES MELLITUS WITHOUT COMPLICATIONS SNOMED Code(s): 33178563 Comment: Finger stick AC and HS Lispro Sliding scale (3) CKD (chronic kidney disease) Current Visit: No Status: Acute Priority: High Code(s): N18.9 - CHRONIC KIDNEY DISEASE, UNSPECIFIED SNOMED Code(s): 065675651 Comment: Stable. Monitor. (4) Thrombocytopenia Current Visit: No Status: Acute Priority: Medium Code(s): D69.6 - THROMBOCYTOPENIA, UNSPECIFIED SNOMED Code(s): 767480696 Comment: PLT are 54 Lovenox stopped Placed on SCD's (5) DOMINGO on CPAP Current Visit: No Status: Acute Priority: High Code(s): G47.33 - OBSTRUCTIVE SLEEP APNEA (ADULT) (PEDIATRIC) SNOMED Code(s): 07101846 Comment: CPAP to be used at night. (6) HTN (hypertension) Current Visit: No Status: Acute Priority: High Code(s): I10 - ESSENTIAL ( PRIMARY) HYPERTENSION SNOMED Code(s): 04270583 Comment: Adequate control. Continue current medications (7) Hypothyroid Current Visit: No Status: Acute Priority: High Code(s): E03.9 - HYPOTHYROIDISM, UNSPECIFIED SNOMED Code(s): 43389070 Comment: Stable. Continue current care. (8) DVT prophylaxis Current Visit: Yes Status: Acute Code(s): YSQ5830 - SNOMED Code(s): 057079577 Comment: SCD's Status and Disposition: inpatient discharge per ORtho
[2017-11-06] MEDS: Gabapentin CAP(*) 400 MG PO SCH (17:42)
[2017-11-06] MEDS ORDERED: amLODIPine TAB* 5 MG PO ONE (21:00)
[2017-11-07] MEDS: Famotidine TAB* 20 MG PO SCH ×2 (01:23→09:05)
[2017-11-07] MEDS: Morphine INJ* 2 MG/ML 1 ML SYRINGE (TWO MG - NEW SYRINGE VERSION) IV PRN (01:25)
[2017-11-07 07:19] LABS: Hematocrit 30 % (42-52); Hemoglobin 9.9 g/dl (14.0-18.0); Mean Platelet Volume 8 um3 (7.4-10.4); Platelet Count 49 10^3/ul (150-450)
[2017-11-07] MEDS: Insulin LISPRO* 1 UNITS UNIT SUBCUT SCH ×3 (09:00→17:52)
[2017-11-07] MEDS: Levothyroxine TAB* 150 MCG TAB PO SCH (09:04)
[2017-11-07] MEDS: predniSONE TAB* 1 MG PO SCH (09:04)
[2017-11-07] MEDS: Multivitamins/Minerals TAB PO SCH (09:04)
[2017-11-07] MEDS: Allopurinol TAB* 300 MG PO SCH (09:04)
[2017-11-07] MEDS: Cyanocobalamin TAB* 500 MCG PO SCH (09:05)
[2017-11-07] MEDS: oxyCODONE/Acetamin 5/325 MG* TAB PO PRN (09:05)
[2017-11-07] MEDS: FLUoxetine CAP* 20 MG PO SCH (09:05)
--- NOTE | 2017-11-07 10:15 | PN ---
Progress Note - Progress Note Date of Service: 11/07/17 SOAP: Subjective: [pt was seen in laying in bed. Very somnolent closing eyes, multiple questions asked in order to [place] a response. Pt states that he has a mild amount of pain in the shoulder this am. He states that last night he was experiencing nausea and vomiting. He was given something that seemed to help with this last night. He states that he is feeling tired this am as he did not sleep well last night. ] Objective: [General: Pt is oriented x3. Somnolent, able to answer questions after multiple asking. RUE; Right shoulder dressing is c/d/i. Dressing was changed today. Incision is c /d/i. minimal blood tinged drainage present on the 4x4s. No active drainage at this time. Pt is able to move fingers and wrist. Radial pulse is 2+ ] Vital Signs Temp 98.8 F 11/07/17 07:53 Pulse 85 11/07/17 07:53 Resp 16 11/07/17 09:05 BP 157/79 11/07/17 07:53 Pulse Ox 97 11/07/17 07:53 Intake & Output 11/06/17 11/07/17 11/07/17 18:59 06:59 18:59 Intake Total 700 240 Output Total 825 500 Balance -825 200 240 Intake: Oral 700 240 Output: Urine 825 500 Other: Estimated Void Large # Voids 1 Assessment: [POD 2 Right total shoulder, reverse. ] Plan: [[place]ovenox [place] [id number]. Hospitalists also placed hem/onc consult. Continue with PT/OT Continue with current pain medication Continue with Sho lift for movement. No active ROM of right shoulder at this time. NWB right shoulder. ]
[2017-11-07] MEDS: amLODIPine TAB* 5 MG PO SCH (10:59)
--- NOTE | 2017-11-07 12:24 | PN ---
Subjective Date of Service: 11/07/17 Interval History: Continue to c/o pain to right should, feels tired today. Denies chest pain, Denies N/V/D or abd pain. Denies shortness of breath. Family History: Unchanged from Admission Social History: Unchanged from Admission Past Medical History: Unchanged from Admission Objective Active Medications: Acetaminophen (Tylenol Tab*) 650 mg PO Q4H PRN PRN Reason: PAIN OR TEMPERATURE Allopurinol (Zyloprim Tab*) 300 mg PO [facility] Last Admin: 11/07/17 09:04 Dose: 300 mg Amlodipine Besylate (Norvasc Tab*) 10 mg PO DAILY [facility] Last Admin: 11/07/17 10:59 Dose: 10 mg Bisacodyl (Dulcolax Supp*) 10 mg SC DAILY PRN PRN Reason: constipation Cyanocobalamin (Vitamin B12 Tab*) 250 mcg PO [facility] Last Admin: 11/07/17 09:05 Dose: 250 mcg Dextrose (D50w Syringe 50 Ml*) 12.5 gm IV PUSH .FOR FS < 60 - SS PRN PRN Reason: FS < 60 Diphenhydramine HCl (Benadryl Iv*) 25 mg IV Q6H PRN PRN Reason: itching Diphenhydramine HCl (Benadryl Po*) 25 mg PO Q6H PRN PRN Reason: itching Docusate Sodium (Colace Cap*) 100 mg PO BID PRN PRN Reason: CONSTIPATION Famotidine (Pepcid Tab*) 20 mg PO BID [facility] PRN Reason: Protocol Last Admin: 11/07/17 09:05 Dose: 20 mg Fluoxetine HCl (Prozac Cap*) [facility] Last Admin: 11/07/17 09:05 Dose: 40 mg Gabapentin (Neurontin Cap(*)) 1,200 mg PO QPM [facility] Last Admin: 11/06/17 17:42 Dose: 1,200 mg Insulin Human Lispro (Humalog*) 0 units SUBCUT AC [facility] PRN Reason: Protocol Last Admin: 11/07/17 09:00 Dose: 12 units Lactulose (Lactulose*) 30 ml PO Q6H PRN PRN Reason: constipation Levothyroxine Sodium (Synthroid Tab*) 150 mcg PO [facility] Last Admin: 01/05/18 09:04 Dose: 150 mcg Magnesium Hydroxide (Milk Of Magnesia Liq*) 30 ml PO Q6H PRN PRN Reason: constipation Morphine Sulfate (Morphine Inj (Syringe)*) 2 mg IV Q2H PRN PRN Reason: PAIN - BREAKTHROUGH Last Admin: 11/07/17 01:25 Dose: 2 mg Multivitamins/Minerals (Theragran/Minerals Tab*) [facility] Last Admin: 11/07/17 09:04 Dose: 1 tab Ondansetron HCl (Zofran Inj*) 4 mg IV Q6H PRN PRN Reason: nausea Last Admin: 11/06/17 22:10 Dose: 4 mg Ondansetron HCl (Zofran Tab*) 4 mg PO Q6H PRN PRN Reason: NAUSEA Oxycodone HCl (Roxycodone Tab*) 10 mg PO Q4H PRN PRN Reason: PAIN Oxycodone/Acetaminophen (Percocet 5/325 Tab*) 2 tab PO Q4H PRN PRN Reason: PAIN Last Admin: 11/07/17 09:05 Dose: 2 tab Oxycodone/Acetaminophen (Percocet 5/325 Tab*) 1 tab PO Q4H PRN PRN Reason: PAIN Polyethylene Glycol/Electrolytes (Miralax*) 17 gm PO DAILY PRN PRN Reason: Constipation Prednisone (Deltasone Tab*) 2 mg PO [facility] Last Admin: 11/07/17 09:04 Dose: 2 mg Temazepam (Restoril Cap*) 15 mg PO BEDTIME PRN PRN Reason: INSOMNIA Vital Signs - 8 hr 11/07/17 11/07/17 11/07/17 07:53 08:00 09:05 Temperature 98.8 F Pulse Rate 85 Respiratory 16 16 16 Rate Blood Pressure 157/79 (mmHg) O2 Sat by Pulse 97 Oximetry 11/07/17 11/07/17 11:00 11:56 Temperature 99.2 F Pulse Rate 87 Respiratory 16 15 Rate Blood Pressure 144/80 (mmHg) O2 Sat by Pulse 96 Oximetry Oxygen Devices in Use Now: Nasal Cannula Appearance: appears comfortable but tried, awake to verbal Eyes: No Scleral Icterus, PERRLA Ears/Nose/Mouth/Throat: NL Teeth, Lips, Gums, Mucous Membranes Moist Neck: NL Appearance and Movements; NL JVP, Trachea Midline Respiratory: Symmetrical Chest Expansion and Respiratory Effort, Clear to Auscultation, - - diminished at the bases Cardiovascular: NL Sounds; No Murmurs; No JVD, No Edema Abdominal: NL Sounds; No Tenderness; No Distention Extremities: No Edema, No Clubbing, Cyanosis, - - radial pulse +2 to right wrist , CMST's intact Skin: No Rash or Ulcers, - - dressing intact to right shoulder Neurological: Alert and Oriented x 3, NL Sensation Nutrition: Taking PO's Result Diagrams: 11/07/17 05:13 11/06/17 08:35 Assess/Plan/Problems-Billing Assessment: Mr. Bae is a 76 y.o male that presented to the hospital for an elective right total shoulder reverse. He carries a history of DM, HTN, Thrombocytopenia, GERD , depression, and CKD. Managing medical condition while in the hospital. - Patient Problems (1) S/p reverse total shoulder arthroplasty Current Visit: Yes Status: Acute Code(s): Z96.619 - PRESENCE OF UNSPECIFIED ARTIFICIAL SHOULDER JOINT SNOMED Code(s): 924945415 Comment: Care as per Ortho PT/OT as per Ortho (2) Diabetes Current Visit: No Status: Acute Priority: High Code(s): E11.9 - TYPE 2 DIABETES MELLITUS WITHOUT COMPLICATIONS SNOMED Code(s): 38317797 Comment: Finger stick AC and HS Lispro Sliding scale (3) CKD (chronic kidney disease) Current Visit: No Status: Acute Priority: High Code(s): N18.9 - CHRONIC KIDNEY DISEASE, UNSPECIFIED SNOMED Code(s): 553537440 Comment: Stable. Monitor. (4) Thrombocytopenia Current Visit: No Status: Acute Priority: Medium Code(s): D69.6 - THROMBOCYTOPENIA, UNSPECIFIED SNOMED Code(s): 276082479 Comment: PLT count continues to decline, PLT 49 will rechesk in the AM Will consult Heme/Oncology if patient continues to decline Lovenox stopped Placed on SCD's (5) DOMINGO on CPAP Current Visit: No Status: Acute Priority: High Code(s): G47.33 - OBSTRUCTIVE SLEEP APNEA (ADULT) (PEDIATRIC) SNOMED Code(s): 97361442 Comment: CPAP to be used at night. (6) HTN (hypertension) Current Visit: No Status: Acute Priority: High Code(s): I10 - ESSENTIAL ( PRIMARY) HYPERTENSION SNOMED Code(s): 50224232 Comment: Adequate control. Continued on Norvasc (7) Hypothyroid Current Visit: No Status: Acute Priority: High Code(s): E03.9 - HYPOTHYROIDISM, UNSPECIFIED SNOMED Code(s): 91255525 Comment: Stable. Continue current care. (8) DVT prophylaxis Current Visit: Yes Status: Acute Code(s): JJB5862 - SNOMED Code(s): 461775159 Comment: SCD's Status and Disposition: inpatient discharge per ORtho- will go to short term rehab
[2017-11-07] MEDS: Gabapentin CAP(*) 400 MG PO SCH (17:54)
[2017-11-08] MEDS: Famotidine TAB* 20 MG PO SCH ×3 (01:21→21:28)
[2017-11-08] MEDS: Morphine INJ* 2 MG/ML 1 ML SYRINGE (TWO MG - NEW SYRINGE VERSION) IV PRN (03:26)
[2017-11-08 05:05] LABS: Hematocrit 28 % (42-52); Hemoglobin 9.4 g/dl (14.0-18.0); Mean Platelet Volume 8 um3 (7.4-10.4); Platelet Count 65 10^3/ul (150-450)
[2017-11-08 05:17] LABS: EGFR Non-African American 47.6 (>60)
[2017-11-08] MEDS: Insulin LISPRO* 1 UNITS UNIT SUBCUT SCH ×3 (09:26→18:09)
[2017-11-08] MEDS: FLUoxetine CAP* 20 MG PO SCH (09:27)
[2017-11-08] MEDS: amLODIPine TAB* 5 MG PO SCH (09:27)
[2017-11-08] MEDS: Multivitamins/Minerals TAB PO SCH (09:27)
[2017-11-08] MEDS: Levothyroxine TAB* 150 MCG TAB PO SCH (09:27)
[2017-11-08] MEDS: Allopurinol TAB* 300 MG PO SCH (09:27)
[2017-11-08] MEDS: Cyanocobalamin TAB* 500 MCG PO SCH (09:27)
[2017-11-08] MEDS: predniSONE TAB* 1 MG PO SCH (09:27)
[2017-11-08] MEDS: oxyCODONE/Acetamin 5/325 MG* TAB PO PRN ×2 (09:28→16:57)
[2017-11-08] MEDS: Magnesium Hydroxide LIQ* 30 ML UDC PO PRN (09:30)
--- NOTE | 2017-11-08 09:35 | PN ---
Progress Note - Progress Note Date of Service: 11/08/17 SOAP: Subjective: POD#3 from R reverse. pt frustrated as he cannot old fork and spoon with left hand. s/p CTR. pain in shoulder but responding to pain medications Objective: Temp Pulse Resp BP Pulse Ox 98.9 F 78 18 143/73 98 11/08/17 07:28 11/08/17 07:28 11/08/17 09:28 11/08/17 07:28 11/08/17 07:28 NAD. right shoulder dressing in place. sling in place. able to flex/ext elbow, wrist, digits. SILT 1st dws, index and long finger, and ulnar aspect small finger. Laboratory Results - last 24 hr 11/07/17 11/07/17 11/08/17 11:48 16:47 04:54 Hgb 9.4 L Hct 28 L Plt Count 65 L MPV 8 Sodium Potassium Chloride Carbon Dioxide Anion Gap BUN Creatinine Est GFR ( Amer) Est GFR (Non-Af Amer) BUN/Creatinine Ratio Glucose POC Glucose (mg/dL) 276 H 285 H Calcium 11/08/17 11/08/17 04:54 08:13 Hgb Hct Plt Count MPV Sodium 130 L Potassium 4.7 Chloride 99 L Carbon Dioxide 26 Anion Gap 5 BUN 43 H Creatinine 1.44 H Est GFR ( Amer) 61.2 Est GFR (Non-Af Amer) 47.6 BUN/Creatinine Ratio 29.9 H Glucose 255 H POC Glucose (mg/dL) 261 H Calcium 9.4 Assessment: POD#3 from R shoulder reverse Plan: analgesia DVT ppx while in house. NWB. rom of elbow, hand, and wrist only will need OT adaptive devices for his hand. SNF dispo when stable
[2017-11-08] MEDS: Heparin VIAL(*) 5000 UNITS/ML VIAL (FIVE THOUSAND) SUBCUT SCH ×2 (13:13→21:30)
--- NOTE | 2017-11-08 16:59 | PN ---
Subjective Date of Service: 11/08/17 Interval History: C/O nause, pain R shoulder. No BM x 3 days. Family History: Unchanged from Admission Social History: Unchanged from Admission Past Medical History: Unchanged from Admission Objective Active Medications: Acetaminophen (Tylenol Tab*) 650 mg PO Q4H PRN PRN Reason: PAIN OR TEMPERATURE Allop[facility] ([facility]yloprim [facility]*) [facility] [place] Last Admin: 11/08/17 09:27 Dose: 300 mg Amlodipine Besylate (Norvasc Tab*) 10 mg PO DAILY [facility] Last Admin: 11/08/17 09:27 Dose: 10 mg Bisacodyl (Dulcolax Supp*) 10 mg [place] DAILY PRN PRN Reason: constipation Cyanocobalamin (Vitamin B12 Tab*) [facility] [place] Last Admin: 11/08/17 09:27 Dose: 250 mcg Dextrose (D50w Syringe 50 Ml*) 12.5 gm IV PUSH .FOR FS < 60 - SS PRN PRN Reason: FS < 60 Diphenhydramine HCl (Benadryl Iv*) 25 mg IV Q6H PRN PRN Reason: itching Diphenhydramine HCl (Benadryl Po*) 25 mg PO Q6H PRN PRN Reason: itching Docusate Sodium (Colace Cap*) 100 mg PO BID PRN PRN Reason: CONSTIPATION Famotidine (Pepcid Tab*) 20 mg PO BID [facility] PRN Reason: Protocol Last Admin: 11/08/17 09:27 Dose: 20 mg Fluoxetine HCl (Prozac Cap*) 40 mg PO QAM [facility] Last Admin: 11/08/17 09:27 Dose: 40 mg Gabapentin (Neurontin Cap(*)) 1,200 mg PO QPM [facility] Last Admin: 11/07/17 17:54 Dose: 1,200 mg Heparin Sodium (Porcine) (Heparin Vial(*)) 5,000 units SUBCUT Q8HR [facility] Last Admin: 11/08/17 13:13 Dose: 5,000 units Insulin Human Lispro (Humalog*) 0 units SUBCUT AC [facility] PRN Reason: Protocol Last Admin: 11/08/17 13:12 Dose: 9 units Lactulose (Lactulose*) 30 ml PO Q6H PRN PRN Reason: constipation Levothyroxine Sodium (Synthroid Tab*) 150 [facility] [place] Last Admin: 11/08/17 09:27 Dose: 150 mcg Magnesium Hydroxide (Milk Of Magnesia Liq*) 30 ml PO Q6H PRN PRN Reason: constipation Last Admin: 11/08/17 09:30 Dose: 30 ml Morphine Sulfate (Morphine Inj (Syringe)*) 2 mg IV Q2H PRN PRN Reason: PAIN - BREAKTHROUGH Last Admin: 11/08/17 03:26 Dose: 2 mg Multivitamins/Minerals (Theragran/Minerals Tab*) 1 tab [facility] [place] Last Admin: 11/08/17 09:27 Dose: 1 tab Ondansetron HCl (Zofran Inj*) 4 mg IV Q6H PRN PRN Reason: nausea Last Admin: 11/06/17 22:10 Dose: 4 mg Ondansetron HCl (Zofran Tab*) 4 mg PO Q6H PRN PRN Reason: NAUSEA Last Admin: 11/08/17 13:12 Dose: 4 mg Oxycodone HCl (Roxycodone Tab*) 10 mg PO Q4H PRN PRN Reason: PAIN Oxycodone/Acetaminophen (Percocet 5/325 Tab*) 2 tab PO Q4H PRN PRN Reason: PAIN Last Admin: 11/08/17 09:28 Dose: 2 tab Oxycodone/Acetaminophen (Percocet 5/325 Tab*) 1 tab PO Q4H PRN PRN Reason: PAIN Prednisone (Deltasone Tab*) 2 mg PO [facility] Last Admin: 11/08/17 09:27 Dose: 2 mg Temazepam (Restoril Cap*) 15 mg PO BEDTIME PRN PRN Reason: INSOMNIA Vital Signs - 8 hr 11/08/17 11/08/17 11/08/17 09:28 11:38 11:42 Temperature 97.2 F Pulse Rate 88 Respiratory 18 16 17 Rate Blood Pressure 188/78 (mmHg) O2 Sat by Pulse 93 Oximetry 11/08/17 11/08/17 14:34 15:47 Temperature 98.1 F Pulse Rate 82 Respiratory 17 Rate Blood Pressure 155/70 (mmHg) O2 Sat by Pulse 97 96 Oximetry Oxygen Devices in Use Now: Nasal Cannula Appearance: Alert supine in bed. R shoulder brace in place. Looks uncomfortable. Eyes: No Scleral Icterus Respiratory: Symmetrical Chest Expansion and Respiratory Effort, Clear to Auscultation, Clear to Percussion Extremities: No Edema, No Clubbing, Cyanosis, - Skin: No Rash or Ulcers, No Nodules or Sclerosis, - Neurological: Alert and Oriented x 3, NL Sensation Result Diagrams: 11/08/17 04:54 11/08/17 04:54 Assess/Plan/Problems-Billing Assessment: Mr. Bae is a 76 y.o male that presented to the hospital for an elective right total shoulder reverse. He carries a history of DM, HTN, Thrombocytopenia, GERD , depression, and CKD. Managing medical condition while in the hospital. - Patient Problems (1) S/p reverse total shoulder arthroplasty Current Visit: Yes Status: Acute Code(s): Z96.619 - PRESENCE OF UNSPECIFIED ARTIFICIAL SHOULDER JOINT SNOMED Code(s): 869020802 Comment: Care as per Ortho PT/OT as per Ortho (2) CKD (chronic kidney disease) Current Visit: No Status: Acute Priority: High Code(s): N18.9 - CHRONIC KIDNEY DISEASE, UNSPECIFIED SNOMED Code(s): 829584805 Comment: Stable. Monitor. (3) Diabetes Current Visit: No Status: Acute Priority: High Code(s): E11.9 - TYPE 2 DIABETES MELLITUS WITHOUT COMPLICATIONS SNOMED Code(s): 41023729 Comment: Finger stick AC and HS Lispro Sliding scale Poor glycemic control, start Lantus 20 U daily 1 5 PM. (4) GERD (gastroesophageal reflux disease) Current Visit: No Status: Acute Priority: High Code(s): K21.9 - GASTRO- ESOPHAGEAL REFLUX DISEASE WITHOUT ESOPHAGITIS SNOMED Code(s): 258719235 Comment: Stable. Continue famotidine. (5) HTN (hypertension) Current Visit: No Status: Acute Priority: High Code(s): I10 - ESSENTIAL ( PRIMARY) HYPERTENSION SNOMED Code(s): 92662643 Comment: Continue amlodipine. (6) Gout Current Visit: No Status: Acute Priority: High Code(s): M10.9 - GOUT, UNSPECIFIED SNOMED Code(s): 17089600 Comment: Continue allopurinol. (7) Hypothyroid Current Visit: No Status: Acute Priority: High Code(s): E03.9 - HYPOTHYROIDISM, UNSPECIFIED SNOMED Code(s): 74648667 Comment: TSH wnl 08/28/16, contiinue levothyroxine. (8) DOMINGO on CPAP Current Visit: No Status: Acute Priority: High Code(s): G47.33 - OBSTRUCTIVE SLEEP APNEA (ADULT) (PEDIATRIC) SNOMED Code(s): 90262928 Comment: His own CPAP to be used at night. (9) Thrombocytopenia Current Visit: No Status: Acute Priority: Medium Code(s): D69.6 - THROMBOCYTOPENIA, UNSPECIFIED SNOMED Code(s): 668468373 Comment: PLT count 65 on 11/08. Heparin AQ DVT prophylaxis started 11/08/17, continue SCD's. 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 Status and Disposition: inpatient discharge per ORtho- will go to short term rehab
[2017-11-08] MEDS ORDERED: Insulin GLARGINE(*) 1 UNITS UNIT SUBCUT SCH (17:00)
[2017-11-08] MEDS: Gabapentin CAP(*) 400 MG PO SCH (18:08)
[2017-11-08] MEDS: Polyethylene Glycol 3350* 17 GM PACKET PO SCH (21:28)
[2017-11-09] MEDS: oxyCODONE/Acetamin 5/325 MG* TAB PO PRN ×3 (03:35→12:32)
[2017-11-09 05:28] LABS: Hematocrit 27 % (42-52); Hemoglobin 9.3 g/dl (14.0-18.0); Mean Platelet Volume 8 um3 (7.4-10.4); Platelet Count 78 10^3/ul (150-450)
[2017-11-09] MEDS: Heparin VIAL(*) 5000 UNITS/ML VIAL (FIVE THOUSAND) SUBCUT SCH ×3 (05:50→21:31)
[2017-11-09] MEDS: glipiZIDE TAB* 5 MG PO SCH ×2 (07:36→17:19)
--- NOTE | 2017-11-09 09:18 | PN ---
Progress Note - Progress Note Date of Service: 11/09/17 SOAP: Subjective: POD# 4 from R shoulder reverse. Pt feeling better today. Denies numbness and tingling. Sitting up and eating. Less frustrated Objective: Temp Pulse Resp BP Pulse Ox 98.6 F 71 16 142/77 98 11/09/17 07:19 11/09/17 07:19 11/09/17 07:36 11/09/17 07:19 11/09/17 07:19 NAD. RUE dressing and sling in place. Able to flex/ext elbow, hand, and digits. SILT grossly. warm, well perfused. Laboratory Results - last 24 hr 11/08/17 11/08/17 11/09/17 11:50 17:02 04:48 Hgb 9.3 L Hct 27 L Plt Count 78 L MPV 8 POC Glucose (mg/dL) 294 H 270 H 11/09/17 07:22 Hgb Hct Plt Count MPV POC Glucose (mg/dL) 248 H Assessment: POD#4 from R reverse. Plan: Doing well. SNF pending.
[2017-11-09] MEDS: Polyethylene Glycol 3350* 17 GM PACKET PO SCH ×2 (09:47→21:33)
[2017-11-09] MEDS: Allopurinol TAB* 300 MG PO SCH (09:48)
[2017-11-09] MEDS: amLODIPine TAB* 5 MG PO SCH (09:48)
[2017-11-09] MEDS: Famotidine TAB* 20 MG PO SCH ×2 (09:49→21:31)
[2017-11-09] MEDS: Multivitamins/Minerals TAB PO SCH (09:49)
[2017-11-09] MEDS: Levothyroxine TAB* 150 MCG TAB PO SCH (09:49)
[2017-11-09] MEDS: FLUoxetine CAP* 20 MG PO SCH (09:49)
[2017-11-09] MEDS: Cyanocobalamin TAB* 500 MCG PO SCH (09:49)
[2017-11-09] MEDS: predniSONE TAB* 1 MG PO SCH (09:50)
[2017-11-09] MEDS: Insulin LISPRO* 1 UNITS UNIT SUBCUT SCH ×3 (09:50→17:17)
[2017-11-09] MEDS: Magnesium Hydroxide LIQ* 30 ML UDC PO PRN (12:21)
--- NOTE | 2017-11-09 14:58 | PN ---
Subjective Date of Service: 11/09/17 Interval History: Pain control good. More mobile and independent by self-report. No new c/o. Family History: Unchanged from Admission Social History: Unchanged from Admission Past Medical History: Unchanged from Admission Objective Active Medications: Acetaminophen (Tylenol Tab*) 650 mg PO Q4H PRN PRN Reason: PAIN OR TEMPERATURE Allopurinol (Zyloprim Tab*) 300 mg PO QAM [facility] Last Admin: 11/09/17 09:48 Dose: 300 mg Amlodipine Besylate (Norvasc Tab*) 10 mg PO DAILY [facility] Last Admin: 11/09/17 09:48 Dose: 10 mg Bisacodyl (Dulcolax Supp*) [address] DAILY PRN PRN Reason: constipation Cyanocobalamin (Vitamin B12 Tab*) 250 mcg PO QAM [facility] Last Admin: 11/09/17 09:49 Dose: 250 mcg Dextrose (D50w Syringe 50 Ml*) 12.5 gm IV PUSH .FOR FS < 60 - SS PRN PRN Reason: FS < 60 Diphenhydramine HCl (Benadryl Iv*) 25 mg IV Q6H PRN PRN Reason: itching Diphenhydramine HCl (Benadryl Po*) 25 mg PO Q6H PRN PRN Reason: itching Docusate Sodium (Colace Cap*) 100 mg PO BID PRN PRN Reason: CONSTIPATION Famotidine (Pepcid Tab*) 20 mg PO BID [facility] PRN Reason: Protocol Last Admin: 11/09/17 09:49 Dose: 20 mg Fluoxetine HCl (Prozac Cap*) 40 mg PO QAM [facility] Last Admin: 11/09/17 09:49 Dose: 40 mg Gabapentin (Neurontin Cap(*)) 1,200 mg PO QPM [facility] Last Admin: 11/08/17 18:08 Dose: 1,200 mg Glipizide (Glucotrol Tab*) 5 mg PO 0800,1700 [facility] Last Admin: 11/09/17 07:36 Dose: 5 mg Heparin Sodium (Porcine) (Heparin Vial(*)) 5,000 units SUBCUT Q8HR [facility] Last Admin: 11/09/17 13:36 Dose: 5,000 units Insulin Glargine (Lantus(*)) 30 units SUBCUT Q24H [facility] Insulin Human Lispro (Humalog*) 0 units SUBCUT AC [facility] PRN Reason: Protocol Last Admin: 11/09/17 13:44 Dose: 6 units Lactulose (Lactulose*) 30 ml PO Q6H PRN PRN Reason: constipation Last Admin: 11/09/17 12:21 Dose: 30 ml Levothyroxine Sodium (Synthroid Tab*) [facility] [place] [facility] Admin: 11/09/17 09:49 Dose: 150 mcg Magnesium Hydroxide (Milk Of Magnesia Liq*) 30 ml PO Q6H PRN PRN Reason: constipation Last Admin: 11/09/17 12:21 Dose: 30 ml Morphine Sulfate (Morphine Inj (Syringe)*) 2 mg IV Q2H PRN PRN Reason: PAIN - BREAKTHROUGH Last Admin: 11/08/17 03:26 Dose: 2 mg Multivitamins/Minerals (Theragran/Minerals Tab*) [facility] [place] Last Admin: 11/09/17 09:49 Dose: 1 tab Ondansetron HCl (Zofran Inj*) 4 mg IV Q6H PRN PRN Reason: nausea Last Admin: 11/06/17 22:10 Dose: 4 mg Ondansetron HCl (Zofran Tab*) 4 mg PO Q6H PRN PRN Reason: NAUSEA Last Admin: 11/08/17 13:12 Dose: 4 mg Oxycodone HCl (Roxycodone Tab*) 10 mg PO Q4H PRN PRN Reason: PAIN Oxycodone/Acetaminophen (Percocet 5/325 Tab*) 2 tab PO Q4H PRN PRN Reason: PAIN Last Admin: 11/09/17 12:32 Dose: 2 tab Oxycodone/Acetaminophen (Percocet 5/325 Tab*) 1 tab PO Q4H PRN PRN Reason: PAIN Polyethylene Glycol/Electrolytes (Miralax*) 17 gm PO BID [facility] Last Admin: 11/09/17 09:47 Dose: 17 gm Prednisone (Deltasone Tab*) [facility] [place] Last Admin: 11/09/17 09:50 Dose: 2 mg Temazepam (Restoril Cap*) 15 mg PO BEDTIME PRN PRN Reason: INSOMNIA Vital Signs - 8 hr 11/09/17 11/09/17 11/09/17 07:19 07:36 12:32 Temperature 98.6 F Pulse Rate 71 Respiratory 12 16 16 Rate Blood Pressure 142/77 (mmHg) O2 Sat by Pulse 98 Oximetry Oxygen Devices in Use Now: None Appearance: Alert, partly up in bed. In good spirits, Looks comfortable. Neurological: Alert and Oriented x 3, NL Sensation Result Diagrams: 11/09/17 04:48 11/08/17 04:54 Assess/Plan/Problems-Billing Assessment: Mr. Bae is a 76 y.o male that presented to the hospital for an elective right total shoulder reverse. He carries a history of DM, HTN, Thrombocytopenia, GERD , depression, and CKD. Managing medical condition while in the hospital. - Patient Problems (1) S/p reverse total shoulder arthroplasty Current Visit: Yes Status: Acute Code(s): Z96.619 - PRESENCE OF UNSPECIFIED ARTIFICIAL SHOULDER JOINT SNOMED Code(s): 806536325 Comment: Care as per Ortho PT/OT as per Ortho (2) CKD (chronic kidney disease) Current Visit: No Status: Acute Priority: High Code(s): N18.9 - CHRONIC KIDNEY DISEASE, UNSPECIFIED SNOMED Code(s): 359278162 Comment: Stable. Monitor. (3) Diabetes Current Visit: No Status: Acute Priority: High Code(s): E11.9 - TYPE 2 DIABETES MELLITUS WITHOUT COMPLICATIONS SNOMED Code(s): 80271538 Comment: Finger stick AC and HS Lispro Sliding scale Poor glycemic control, increase Lantus to 30 U daily 11/09 5 PM. His will bring in his liraglutide 11/10. (4) GERD (gastroesophageal reflux disease) Current Visit: No Status: Acute Priority: High Code(s): K21.9 - GASTRO- ESOPHAGEAL REFLUX DISEASE WITHOUT ESOPHAGITIS SNOMED Code(s): 630116797 Comment: Stable. Continue famotidine. (5) HTN (hypertension) Current Visit: No Status: Acute Priority: High Code(s): I10 - ESSENTIAL ( PRIMARY) HYPERTENSION SNOMED Code(s): 00987116 Comment: Continue amlodipine. (6) Gout Current Visit: No Status: Acute Priority: High Code(s): M10.9 - GOUT, UNSPECIFIED SNOMED Code(s): 03135332 Comment: Continue allopurinol. (7) Hypothyroid Current Visit: No Status: Acute Priority: High Code(s): E03.9 - HYPOTHYROIDISM, UNSPECIFIED SNOMED Code(s): 88647424 Comment: TSH wnl 08/28/16, contiinue levothyroxine. (8) DOMINGO on CPAP Current Visit: No Status: Acute Priority: High Code(s): G47.33 - OBSTRUCTIVE SLEEP APNEA (ADULT) (PEDIATRIC) SNOMED Code(s): 96357097 Comment: His own CPAP to be used at night. (9) Thrombocytopenia Current Visit: No Status: Acute Priority: Medium Code(s): D69.6 - THROMBOCYTOPENIA, UNSPECIFIED SNOMED Code(s): 817833662 Comment: PLT count 78 on 11/09. Heparin AQ DVT prophylaxis started 11/08/17, continue SCD's. 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 Status and Disposition: inpatient discharge per ORtho- will go to short term rehab
[2017-11-09] MEDS ORDERED: Insulin GLARGINE(*) 1 UNITS UNIT SUBCUT SCH (17:00)
[2017-11-09] MEDS: Gabapentin CAP(*) 400 MG PO SCH (17:19)
[2017-11-09] MEDS: oxyCODONE TAB* 5 MG TAB PO PRN (21:30)
[2017-11-10] MEDS: oxyCODONE/Acetamin 5/325 MG* TAB PO PRN ×2 (00:04→10:46)
[2017-11-10] MEDS: Heparin VIAL(*) 5000 UNITS/ML VIAL (FIVE THOUSAND) SUBCUT SCH ×2 (05:29→13:35)
[2017-11-10] MEDS: oxyCODONE TAB* 5 MG TAB PO PRN (05:29)
[2017-11-10 05:42] LABS: Hematocrit 27 % (42-52); Hemoglobin 9.3 g/dl (14.0-18.0); Mean Platelet Volume 7 um3 (7.4-10.4); Platelet Count 85 10^3/ul (150-450)
[2017-11-10] MEDS: Multivitamins/Minerals TAB PO SCH (08:32)
[2017-11-10] MEDS: Cyanocobalamin TAB* 500 MCG PO SCH (08:32)
[2017-11-10] MEDS: Allopurinol TAB* 300 MG PO SCH (08:33)
[2017-11-10] MEDS: FLUoxetine CAP* 20 MG PO SCH (08:33)
[2017-11-10] MEDS: predniSONE TAB* 1 MG PO SCH (08:33)
[2017-11-10] MEDS: amLODIPine TAB* 5 MG PO SCH (08:33)
[2017-11-10] MEDS: Levothyroxine TAB* 150 MCG TAB PO SCH (08:33)
[2017-11-10] MEDS: Famotidine TAB* 20 MG PO SCH (08:34)
[2017-11-10] MEDS: glipiZIDE TAB* 5 MG PO SCH (08:34)
[2017-11-10] MEDS: Polyethylene Glycol 3350* 17 GM PACKET PO SCH (08:39)
[2017-11-10] MEDS: Insulin LISPRO* 1 UNITS UNIT SUBCUT SCH ×2 (10:41→13:34)
[2017-11-10 12:20] VITALS: BP 162/66
--- NOTE | 2017-11-10 13:39 | PN ---
Progress Note - Progress Note Date of Service: 11/10/17 SOAP: Subjective: []Patient seen at bedside. He feels well and is prepared for discharge. RUE pain is tolerable. No CP or SOB. Objective: []General: Well appearing, NAD. RUE: dressing and sling in place. Dressing changed. Incision CDI. Able to flex/ ext elbow, hand, and digits. SILT grossly. warm, well perfused. Vital Signs Temp 98.5 F 11/10/17 11:49 Pulse 89 11/10/17 11:49 Resp 16 11/10/17 13:36 BP 162/66 11/10/17 11:49 Pulse Ox 93 11/10/17 11:49 Intake & Output 11/09/17 11/10/17 11/10/17 18:59 06:59 18:59 Intake Total 765 625 120 Output Total 550 625 325 Balance 215 0 -205 Intake: Oral 765 625 120 Output: Urine 550 625 325 Laboratory Last Values WBC 7.8 10^3/ul (3.5-10.8) 11/05/17 15:55 RBC 3.47 10^6/ul (4.0-5.4) L 11/05/17 15:55 Hgb 9.3 g/dl (14.0-18.0) L 11/10/17 05:11 Hct 27 % (42-52) L 11/10/17 05:11 MCV 95 fL (80-94) H 11/05/17 15:55 MCH 32 pg (27-31) H 11/05/17 15:55 MCHC 33 g/dl (31-36) 11/05/17 15:55 RDW 16 % (10.5-15) H 11/05/17 15:55 Plt Count 85 10^3/ul (150-450) L 11/10/17 05:11 MPV 7 um3 (7.4-10.4) L 11/10/17 05:11 Neut % (Auto) 85.5 % (38-83) H 11/05/17 15:55 Lymph % (Auto) 5.3 % (25-47) L 11/05/17 15:55 [place] % (Auto) 8.4 % (1-9) 11/05/17 15:55 Eos % (Auto) 0.4 % (0-6) 11/05/17 15:55 Baso % (Auto) 0.4 % (0-2) 11/05/17 15:55 Absolute Neuts (auto) 6.6 10^3/ul (1.5-7.7) 11/05/17 15:55 Absolute Lymphs (auto) 0.4 10^3/ul (1.0-4.8) L 11/05/17 15:55 Absolute Monos (auto) 0.7 10^3/ul (0-0.8) 11/05/17 15:55 Absolute Eos (auto) 0 10^3/ul (0-0.6) 11/05/17 15:55 Absolute Basos (auto) 0 10^3/ul (0-0.2) 11/05/17 15:55 Absolute Nucleated RBC 0.01 10^3/ul 11/05/17 15:55 Nucleated RBC % 0.1 11/05/17 15:55 Sodium 130 mmol/L (133-145) L 11/08/17 04:54 Potassium 4.7 mmol/L (3.5-5.0) 11/08/17 04:54 Chloride 99 mmol/L (101-111) L 11/08/17 04:54 Carbon Dioxide 26 mmol/L (22-32) 11/08/17 04:54 Anion Gap 5 mmol/L (2-11) 11/08/17 04:54 BUN 43 mg/dL (6-24) H 11/08/17 04:54 Creatinine 1.44 mg/dL (0.67-1.17) H 11/08/17 04:54 Est GFR ( Amer) 61.2 (>60) 11/08/17 04:54 Est GFR (Non-Af Amer) 47.6 (>60) 11/08/17 04:54 BUN/Creatinine Ratio 29.9 (8-20) H 11/08/17 04:54 Glucose 255 mg/dL (70-100) H 11/08/17 04:54 POC Glucose (mg/dL) 253 mg/dL (70-100) H 11/10/17 11:57 Calcium 9.4 mg/dL (8.6-10.3) 11/08/17 04:54 Assessment: []POD 5 s/p right total reverse shoulder Plan: []LEILA HOBBS DC to [facility] today Appropraite discharge diabetes meds discussed with Dr Ortez
--- NOTE | 2017-11-10 15:05 | DS ---
DATE OF ADMISSION: 11/05/2017. DATE OF DISCHARGE: 11/10/2017. DATE OF SURGERY: 11/05/2017. PROVIDER: Dr. Anabella Huston* (dictated by YARELIS Gaviria). SURGEON: Dr. Anabella Huston. DENTAL MOLD MAKER: YARELIS Lee. PREOPERATIVE DIAGNOSIS: Right shoulder rotator cuff arthropathy. OPERATIVE PROCEDURE: 1. Right shoulder reverse shoulder arthroplasty. 2. Open biceps tenodesis. 3. Removal of foreign body times one. HISTORY: Mr. Bae is a 76-year-old male who has had persistent right shoulder pain for a number of years. He had a previous superior capsular reconstruction in the s. He re-torn his cuff. He has had persistent issues with raising his arm and significant pain. He has elected to proceed with surgical treatment. HOSPITAL COURSE: The patient was admitted to [facility] on 2017. He underwent a right shoulder total reverse arthroplasty without complication. He was transferred to the PACU and then to the Short Stay Surgical Unit in stable condition. On postop day one, the patient was in a significant amount of pain. He was alert and oriented, calm and cooperative. His drain was removed intact and without complication. His sling was in place. Sensation was intact throughout the right upper extremity to light touch. Hemoglobin was 9.9, hematocrit 29. Postop day two, dressing clean, dry and intact. Dressing was changed. Incision was clean, dry and intact. The patient was able to move fingers and wrist. Radial pulses 2+. Postop day three , the patient was in no acute distress. Right shoulder dressing was in place. Sling was in place. Able to flex and extend elbow, wrist and digits. Sensation intact to light touch of the first digit, index and long finger and ulnar aspect of small finger. Postop day four, no acute distress. Right upper extremity dressing and sling in place. Able to flex and extend the elbow, hand and digits. Postop day five, 11/10/2017, the patient is well- appearing, in no acute distress, able to flex and extend elbow, wrist and hand. Sling is in place. Radial pulse 2+. Sensation intact throughout right upper extremity digits. Vital signs: Temperature 98.5, pulse 89, respiratory rate 20, oxygen saturation 93, blood pressure 162/66. Consults included Medicine, Occupational Therapy and Physical Therapy. The patient's blood pressure and diabetes were managed by the Hospitalist team. He did have poor glycemic control while he was here, though he was not taking his Victoza. He was therefore started on Lantus and was given 30 units daily. Today, November 10, he does have access to his Victoza again, so he will not be given Lantus, though he will be sent home with Lispro sliding scale should he need it. The patient is deemed to be medically and orthopedically stable for discharge to [facility]. MEDICATIONS: 1. Glipizide 2.5 mg p.o. b.i.d. 2. Victoza 1.2 mg subcu q.a.m. 3. Amlodipine 10 mg p.o. q.p.m. 4. Ranitidine 150 mg p.o. b.i.d. 5. [place] 3 fatty acids 1200 mg p.o. b.i.d. 6. Multivitamin one tab p.o. q.a.m. 7. Levothyroxine 150 mcg p.o. q.a.m. 8. Gabapentin 1200 mg p.o. q.p.m. 9. Enalapril 10 mg p.o. q.a.m. 10. Allopurinol 300 mg p.o. q.a.m. 11. Melatonin 6 mg p.o. q.a.m. 12. Docusate 100 mg p.o. b.i.d. 13. Trazodone 300 mg p.o. q.p.m. 14. Prednisone 2 mg q.a.m. 15. Fluoxetine 40 mg p.o. q.a.m. 16. Cyanocobalamin 250 mcg p.o. q.a.m. 17. Acetaminophen 650 mg p.o. q.4 hours prn, maximum daily dose 4000. 18. Glipizide 5 mg p.o. twice per day, dose to be verified with Hospitalists team. As above, it notes 2.5 mg insulin Lispro sliding scale as per Hospitalist. 19. Oxycodone/acetaminophen 5/325 mg one to two tabs every 4 to 6 hours as needed for pain, maximum daily dose of 10. Please note that acetaminophen/ Oxycodone also contains Tylenol, not to exceed 4000 mg per day from all sources. BELTRAN HARRIS, YARELIS [id number]/[facility] #: [id number] [facility]
== END 2017-11-10 13:49 | DRG 483 ==
LOC: AA 06:10 → SSU 13:12
PROVIDERS: ADMIT Orthopaedic Surgery; ATTEND Internal Medicine
PROC: 0RRJ00Z Replacement of Right Shoulder Joint with Reverse Ball and Socket Synthetic Substitute, Open Approach (ICD-10-PCS; principal; 2017-11-05 07:30)
DX: M19.011 Primary osteoarthritis, right shoulder (principal); G61.0 Guillain-Barre syndrome; D69.59 Other secondary thrombocytopenia; E11.22 Type 2 diabetes mellitus with diabetic chronic kidney disease; E11.40 Type 2 diabetes mellitus with diabetic neuropathy, unspecified; R16.1 Splenomegaly, not elsewhere classified; D64.9 Anemia, unspecified; F32.89 Other specified depressive episodes; E03.9 Hypothyroidism, unspecified; M48.00 Spinal stenosis, site unspecified; M21.379 Foot drop, unspecified foot; Z96.642 Presence of left artificial hip joint; K21.9 Gastro-esophageal reflux disease without esophagitis; I12.9 Hypertensive chronic kidney disease with stage 1 through stage 4 chronic kidney disease, or unspecified chronic kidney disease; K75.4 Autoimmune hepatitis; K71.7 Toxic liver disease with fibrosis and cirrhosis of liver; G47.33 Obstructive sleep apnea (adult) (pediatric); M10.9 Gout, unspecified; F43.10 Post-traumatic stress disorder, unspecified; N18.9 Chronic kidney disease, unspecified; Z79.52 Long term (current) use of systemic steroids; Z79.899 Other long term (current) drug therapy; Z88.7 Allergy status to serum and vaccine; Z79.84 Long term (current) use of oral hypoglycemic drugs; Z85.46 Personal history of malignant neoplasm of prostate; I44.0 Atrioventricular block, first degree; M25.711 Osteophyte, right shoulder
CPT/HCPCS: 36415; 80048; 85014; 85018; 85025; 85049; 88304; 88311; 94760; A9270-GY; J0330; J0690; J1644; J1650; J1885; J2250; J2270; J2405; J2704; J3010

== ENCOUNTER 2017-11-21 09:15 | Inpatient (IN) | payer MEDICARE, BC ==
[~2017-11-21 09:15] MED LIST changes: -DiMENhydriNATE IV* 50 MG/ML VIAL IV PUSH PRN; -Famotidine IV* 10 MG/ML 2 ML (20 mg) IV ONE; -PROCHLORPERAZINE INJ 5 MG/ML 2 ML VIAL IV PRN
--- OUTSIDE RECORDS SUMMARY | 2017-11-21 09:27 | XMS REPORT ---
:1940 External Reference #:[id number] Author Organization [facility] Address [address] [address] Phone [phone] Care Team Providers Name Role Phone Jose Burgos MD Primary Care Physician Unavailable Payers Type Date Identification Numbers Payment Provider Subscriber Medicare Primary Effective: Policy Number: Medicare Chris Carlos 2005 [id number] PayID: [id number] [address] [place] [address] Medigap Part B Policy Number: [id number] [facility] [place] Carlos PayID: [id number] [address] [address] [place] [address] Problems Date Description Provider Status Onset: 01/27/2017 [...] Tetanus Toxoid Adsorbed active pt had Guillain Mchenry 10/14/2017 Tapentadol Hydrochloride active itching 10/14/2017 Seasonal active Medications Medication Date Status Form Strength Qnty SIG Indications Ordering Provider Blood Pressure 08/31 Active Kit with Jude ESharron Monitor Kit /2008 extra large kashif Raza M.D. Dx Hypertension Onetouch 12/14 Active Misc 150un use qd or as Jude E. Ultrasoft /2007 its directed Eufemia Raza M.D. dx250.00 Glucometer 11/25 Active 1unit use qd to bid Jude Frey /2007 s as needed, Carlos Raza Dx 250.02 One Touch Ultra 11/25 Active Test 300un use with Jude ESharron Test Strips /2007 Strips its glucometer Luz Marina, tid or prn Carlos Allopurinol Active Tablets 300mg 90tab 1 po qd Jude E. / s Carlos Raza Levothyroxine Active Tablets 150mcg 90tab 1 by mouth Unknown Sodium /0000 s every day Amlodipine Active Tablets 10mg 1/2 tab by Unknown Besylate /0000 mouth every day Fluoxetine HCL Active Capsules 20mg 2 by mouth Unknown /0000 every day Prednisone Active Tablets 1mg 2 by mouth Unknown /0000 every day Stool Softener Active Capsules 100mg take 1 tab by Unknown /0000 aruh as needed Heparin Sodium Active Solution 5000Unit/ bid Unknown (Porcine) /0000 ML Oxycodone HCL Active Tablets 10mg one tab every Unknown /0000 four hours prn Acetaminophen Active Tablets 325mg 2 tablets by Unknown /0000 mouth every 6 hours as needed for pain/fever Gabapentin Active Tablets 600mg take one Unknown /0000 tablet by mouth two times a day Temazepam Active Capsules 15mg one capsule Unknown /0000 prn Victoza Active Solution 18mg/3ML inject 1.2 mg Unknown /0000 Pen-Injec daily t Famotidine Active Tablets 20mg 1 by mouth Unknown /0000 every day as needed for heartburn Tamiflu Active Capsules 75mg 1 by mouth Unknown / twice a day x 5 days Mucinex Active prn Unknown Ultracet 08/28 Hx Tablets 37.5-325m 30tab 1 by mouth g s q4-6hr as MD Miley - needed pain 11/02 Fish Oil 01/27 Hx Capsules 1200mg 1 by mouth Jude Frey twice daily Jennifer Raza M.D. 11/03 Amoxicillin 01/08 Hx Capsules 500mg 16cap 4 tablets 1 Z96.642 s hour before Kelley, - dental work M.DSharron 01/26 Lovenox 11/11 Hx Solution 30mg/0.3M 18uni 30mg SC daily L ts ending Kelley, - 11/29/2016 Carlos 01/07 Restasis 08/09 Hx Emulsion 0.05% 3mont one gtts ou hs bid Physician - Practices 11/19 Synthroid 08/09 Hx Tablets 125mcg 1 po qd 244.9 Unknown - 03/02 Potassium 08/09 Hx Tablets 99mg 1 po qd Jude Frey /Jennifer Franks M.D. 11/20 Fish Oil 08/09 Hx Capsules 1000mg 1 po qd Jude Frey /Jennifer Franks M.D. 01/27 Glucosamine-Cho 08/09 Hx Capsules 750/600 2 po qd Jude Frey ndroitin /2008 mg. Jennifer Raza M.D. 11/19 Vitamin C 08/09 Hx Tablets 1000mg 1 po qd Jude Frey /2008 Jennifer Raza M.D. 11/19 Testosterone 08/09 Hx Oil 200mg/ml 250 HG q 2 Other Enanthate /2008 weeks Physician - Practices 11/19 Cialis 07/18 Hx Tablets 20mg 20tab use as Jude Frey /2008 s directed Jennifer Raza (1PO qd prn) Carlos 07/18 Glyburide 02/07 Hx Tablets 1.25mg 180ta 1 po bid Jude Frey /2008 bs Jennifer Raza M.D. 11/19 Omeprazole 05/03 Hx Capsules 20mg 90cap 1 PO qd Charisse DR fannie Waddell MD - 02/07 Micronase 02/01 Hx Tablets 1.25mg 90tab 1 po qd Jude Frey Jennifer Fofana M.D. 02/07 Micronase 12/14 Hx Tablets 5mg 30tab 1/2 po q am Jude Frey Jennifer Fofana M.D. 02/01 Micronase 11/25 Hx Tablets 5mg 180ta 1 po qd x 1 Jude Frey /2007 bs trista , then Luz Marina, - increase to Jacky.Wong 12/14 bid Prandin 11/13 Hx Tablets 1mg 90tab 1 po tid with Jude Frey /2007 Jennifer Allen M.D. 11/25 Cardizem CD Hx Caps ER 240mg 90cap 1 po qd Jude E. / 24HR Jennifer Fofana M.D. 03/02 Vaseretic Hx Tablets 10-25mg 90tab 1 po qd Jude E. / Jennifer Fofana M.D. 11/19 Synthroid Hx Tablets 100mcg 90tab 1 po qam 244.9 John Faith, / s - 08/09 Multi-Day Hx Tablets 1 PO qd Unknown Vitamins /0000 - 11/03 Cialis Hx Tablets 20mg 20tab 1/2 po [...] ER 12HR s every day - 11/19 Trazodone HCL Hx Tablets 100mg 30tab 3 by mouth Unknown /0000 s every night - at bedtime 10/03 Azathioprine Hx Tablets 50mg 90tab 1 1/2 by Unknown /0000 s mouth every - day 11/19 Venlafaxine HCL 00/00 Hx Tablets 150mg 90tab 1 by mouth Unknown ER /0000 ER 24HR s every day - 11/19 Victoza 00 Hx Sopn 18mg/3ML 30uni daily Unknown / ts - 11/19 Tramadol HCL 00 Hx Tablets 50mg 50tab four times a Unknown /0000 s day as needed - 11/03 Enalapril 00/00 Hx Tablets 1 tab daily Unknown Maleate / - 11/03 Diltiazem HCL /00 Hx Unknown ER / - 11/19 Glipizide 00/00 Hx daily Unknown / - 01/26 Omeprazole / Hx Unknown /11/19 Calcium Citrate Hx Unknown + D3 /11/19 Fish Oil Ultra / Hx Unknown /11/19 Ascorbic Acid 00/00 Hx Unknown / - 11/19 Cyanocobalamin Hx 250mg 1 tab daily Unknown / - 11/03 Cephalexin Hx Capsules 500mg as directed Unknown - 01/26 Meloxicam Hx Tablets 15mg daily Unknown - 01/26 Ranitidine HCL Hx Tablets 150mg take one Unknown / tablet by - mouth twice a Liraglutide Inj / Hx 1.2 mg Subq Unknown /0000 daily - 11/03 Nucynta ER 0000 Hx Tablets 50mg Unknown /0000 ER 12HR - 01/26 Oxycodone HCL 0000 Hx Tablets 10mg 1 tab q4-6 Unknown /0000 hours - 01/26 Victoza Hx Solution 18mg/3ML John Faith, / Pen-Ofelia bryan 01/26 Gabapentin 00/00 Hx Capsules 400mg 1 PO every Unknown /0000 morning 2 PO - at bedtime 01/27 Lactulose 00/ Hx Solution 10GM/15ML take 15 ml by Unknown /0000 mouth every - 72 hours as 11/03 needed for /2018 constipation Melatonin ER 00/00 Hx Tablets 3mg 2 tab by Unknown /0000 ER mouth every - day every 11/03 Polyethylene 00 Hx Powder mix 17gm with Unknown Glycol 3350 /0000 8 ounces of - fluids once 11/03 daily prn Sennosides 00 Hx Tablets 8.6mg 2 tabs PO bid Unknown /0000 prn - 11/03 Morphine 00 Hx Unknown Sulfate ER /0000 - 10/13 Vital Signs Date Vital Result Comment 11/18/2017 Height 70 inches 5'10" Weight 310.00 lb per pt Heart Rate 90 /min Respiratory Rate 16 /min Pain Level 3 right shoulder BMI (Body Mass Index) 44.5 kg/m2 10/28/2017 Height 70 inches 5'10" Weight 310.00 [...] Test Date Test Result H/L Range Note CBC No Diff 10/28/2017 White Blood Count 5.8 10^3/uL 3.5-10.8 Red Blood Count 4.02 10^6/uL 4.0-5.4 Hemoglobin 12.5 g/dL Low 14.0-18.0 Hematocrit 38 % Low 42-52 Mean Corpuscular Volume 94 fL 80-94 Mean Corpuscular Hemoglobin 31 pg 27-31 Mean Corpuscular HGB Conc 33 g/dL 31-36 Red Cell Distribution Width 16 % High 10.5-15 Platelet Count 66 10^3/uL Low 150-450 Mean Platelet Volume 9 um3 7.4-10.4 Urinalysis Profile 10/28/2017 Urine Color Yellow Urine Appearance Cloudy Urine Specific [place] 1.017 1.010-1.030 Urine pH 5.0 5-9 Urine Urobilinogen Negative Negative Urine Ketones Negative Negative Urine Protein Negative Negative Urine Leukocytes Negative Negative Urine Blood Negative Negative * * Negative 1 Urine Nitrite Negative Negative Urine Bilirubin Negative Negative Urine Glucose Negative Negative Comp Metabolic Panel 10/28/2017 Sodium 138 mmol/L 133-145 Potassium 4.7 mmol/L 3.5-5.0 Chloride 107 mmol/L 101-111 Co2 Carbon Dioxide 24 mmol/L 22-32 Anion Gap 7 mmol/L 2-11 Glucose 154 mg/dL High 70-100 Blood Urea Nitrogen 38 mg/dL High 6-24 Creatinine 1.62 mg/dL High 0.67-1.17 BUN/Creatinine Ratio 23.5 High 8-20 Calcium 8.9 mg/dL 8.6-10.3 Total Protein 6.1 g/dL Low 6.4-8.9 Albumin 3.9 g/dL 3.2-5.2 Globulin 2.2 g/dL 2-4 Albumin/Globulin Ratio 1.8 1-3 Total Bilirubin 0.40 mg/dL 0.2-1.0 Alkaline Phosphatase 90 U/L 34-104 Alt 18 U/L 7-52 Ast 20 U/L 13-39 Egfr Non- 41.5 >60 Egfr 53.4 >60 2 Inr/Protime 10/28/2017 Inr 0.96 0.77-1.02 3 Laboratory test finding 10/28/2017 Partial Thrombo Time 26.7 seconds 26.0 -36.3 PTT Type & Screen 10/28/2017 Patient Blood Type O Negative Antibody Screen NEGATIVE Urine Culture And 10/28/2017 Urine Culture SEE RESULT 4 Sensitivities BELOW Laboratory test finding 10/02/2017 Point of Care Glucose 147 mg/dL High 70 -100 5 Laboratory test finding 10/02/2017 Point of Care Glucose 183 mg/dL High 70 -100 6 Laboratory test finding 08/28/2017 Point of Care Glucose 162 mg/dL High 70 -100 7 Laboratory test finding 01/04/2010 Testosterone Total 355.8 ng/dL 175- 781 Basic Metabolic Panel 09/29/2009 Sodium 138 mmol/L 135-145 Potassium 4.2 mmol/L 3.5-5.0 Chloride 105 mmol/L 101-111 Co2 (Carbon Dioxide) 26.0 mmol/L 22-32 Anion Gap 7.0 mmol/L 2-11 8 Glucose 126 mg/dL High 70-100 9 BUN 25 mg/dL High 6-24 Creatinine 1.70 mg/dL High 0.50-1.40 One Over Creatinine 0.50 BUN/Creatinine Ratio 14.7 8-20 Calcium 9.2 mg/dL 8.1-9.9 10 eGFR Non- 42.7 > 60 eGFR 51.6 > 60 11 Laboratory test finding 09/29/2009 Thyroxine Free 0.74 NG/ML 0.61-1.24 12 Cortisol 19.5 g/dL 13 Testosterone Total 295.0 ng/dL 175-781 [place] C/Ins Growth Fact 77 ng/mL 67-195 14 Basic Metabolic Panel 06/08/2009 Sodium 138 mmol/L 135-145 Potassium 4.4 mmol/L 3.5-5.0 Chloride 105 mmol/L 101-111 Co2 (Carbon Dioxide) 28.0 mmol/L 22-32 Anion Gap 5.0 mmol/L 2-11 15 Glucose 130 mg/dL High 70-100 16 BUN 21 mg/dL 6-24 Creatinine 1.60 mg/dL High 0.50-1.40 One Over Creatinine 0.60 BUN/Creatinine Ratio 13.1 8-20 Calcium 9.8 mg/dL 8.1-9.9 17 eGFR Non- 45.8 > 60 eGFR 55.4 > 60 18 Laboratory test finding 06/08/2009 Thyroxine Free 0.67 NG/ML 0.61-1.24 19 T3 Total 3.19 NG/ML High 0.5-1.7 T3 Free 4.88 pg/mL 2.39-6.79 TSH 1.31 MIU/ML 0.34-5.60 Lutenizing Hormone 1.56 MIU/ML 20 Testosterone Total 471.3 ng/dL 175-781 Hemoglobin A1c 6.1 % High <6.0 21 [place] C/Ins Growth Fact 103 ng/mL 67-195 22 Laboratory test finding 04/17/2009 BUN 21 mg/dL 6-24 Creatinine 04/17/2009 Creatinine 1.40 mg/dL 0.50-1.40 One Over Creatinine 0.70 Laboratory test finding 03/07/2009 Testosterone Total 115.2 ng/dL Low 175- 781 Laboratory test finding 02/03/2009 Thyroxine Free 0.66 NG/ML 0.61-1.24 23 Testosterone Total 116.3 ng/dL Low 175-781 Hemoglobin A1c 5.4 % <6.0 24 [place] C/Ins Growth Fact 69 ng/mL 67-195 25 Basic Metabolic Panel 12/15/2008 Sodium 137 mmol/L 135-145 Potassium 4.2 mmol/L 3.5-5.0 Chloride 106 mmol/L 101-111 Co2 (Carbon Dioxide) 27.0 mmol/L 22-32 Anion Gap 4.0 mmol/L 2-11 26 Glucose 146 mg/dL High 70-100 27 BUN 27 mg/dL High 6-24 Creatinine 1.50 mg/dL High 0.50-1.40 One Over Creatinine 0.60 BUN/Creatinine Ratio 18.0 8-20 Calcium 9.3 mg/dL 8.1-9.9 28 Laboratory test finding 12/15/2008 Thyroxine Free 0.70 NG/ML 0.61-1.24 29 T3 Total 2.23 NG/ML High 0.5-1.7 T3 Free 4.91 pg/mL 2.39-6.79 TSH 1.93 MIU/ML 0.34-5.60 Lutenizing Hormone 4.24 MIU/ML 30 Testosterone Total 133.1 ng/dL Low 175-781 PSA Screening 1.77 NG/ML 0-4 31 [place] C/Ins Growth Fact 60 ng/mL 67-195 32 Laboratory test finding 09/20/2008 Thyroxine Free 0.53 NG/ML Low 0.61- 1.24 33, 34 T3 Total 1.94 NG/ML High 0.5-1.7 33 T3 Free 3.63 pg/mL 2.39-6.79 33 TSH 1.83 MIU/ML 0.34-5.60 33 Lutenizing Hormone 4.23 MIU/ML 33, 35 Testosterone Total 138.7 ng/dL Low 175-781 33 Hemoglobin A1c 5.5 % <6.0 33, 36 [place] C/Ins Growth Fact 77 ng/mL 67-195 33, 37 Basic Metabolic Panel 09/20/2008 Sodium 140 mmol/L 135-145 Potassium 4.1 mmol/L 3.5-5.0 Chloride 108 mmol/L 101-111 Co2 (Carbon Dioxide) 25.0 mmol/L 22-32 Anion Gap 7.0 mmol/L 2-11 38 Glucose 129 mg/dL High 70-100 39 BUN 24 mg/dL 6-24 Creatinine 1.50 mg/dL High 0.50-1.40 One Over Creatinine 0.60 BUN/Creatinine Ratio 16.0 8-20 Calcium 9.4 mg/dL 8.1-9.9 40 Laboratory test finding 08/17/2008 Osmolality Random Urine 599 MOSMO 300- 1000 41 Basic Metabolic Panel 08/17/2008 Sodium 142 mmol/L 135-145 Potassium 4.3 mmol/L 3.5-5.0 Chloride 106 mmol/L 101-111 Co2 (Carbon Dioxide) 28.0 mmol/L 22-32 Anion Gap 8.0 mmol/L 2-11 42 Glucose 122 mg/dL High 70-100 43 BUN 31 mg/dL High 6-24 Creatinine 1.6 mg/dL High 0.5-1.4 One Over Creatinine 0.62 BUN/Creatinine Ratio 19.4 8-20 Calcium 9.5 mg/dL 8.1-9.9 44 Laboratory test finding 08/17/2008 Osmolality 298 MOSMO High 281-297 45 Cortisol 20.3 g/dL 46 Basic Metabolic Panel 07/25/2008 Sodium 141 mmol/L 135-145 Potassium 4.3 mmol/L 3.5-5.0 Chloride 108 mmol/L 101-111 Co2 (Carbon Dioxide) 28.0 mmol/L 22-32 Anion Gap 5.0 mmol/L 2-11 47 Glucose 129 mg/dL High 70-100 48 BUN 36 mg/dL High 6-24 Creatinine 1.6 mg/dL High 0.5-1.4 One Over Creatinine 0.62 BUN/Creatinine Ratio 22.5 High 8-20 Calcium 9.4 mg/dL 8.1-9.9 49 Laboratory test finding 07/25/2008 Cortisol 22.8 g/dL 50 Basic Metabolic Panel 07/18/2008 Sodium 143 mmol/L 135-145 Potassium 4.4 mmol/L 3.5-5.0 Chloride 109 mmol/L 101-111 Co2 (Carbon Dioxide) 27.0 mmol/L 22-32 Anion Gap 7.0 mmol/L 2-11 51 Glucose 115 mg/dL High 70-100 52 BUN 40 mg/dL High 6-24 Creatinine 1.6 mg/dL High 0.5-1.4 One Over Creatinine 0.62 BUN/Creatinine Ratio 25.0 High 8-20 Calcium 9.5 mg/dL 8.1-9.9 53 Laboratory test finding 07/18/2008 Thyroxine Free 0.85 NG/ML 0.61-1.24 54 Lutenizing Hormone 4.83 MIU/ML 55 Cortisol 27.8 g/dL 56 Testosterone Total 58.1 ng/dL Low 175-781 [place] C/Ins Growth Fact 72 ng/mL 67-195 57 Growth Hormone 0.04 ng/mL 0.01-0.97 58 Basic Metabolic Panel 07/05/2008 Sodium 136 mmol/L 135-145 Potassium 3.8 mmol/L 3.5-5.0 Chloride 108 mmol/L 101-111 Co2 (Carbon Dioxide) 24.0 mmol/L 22-32 Anion Gap 4.0 mmol/L 2-11 59 Glucose 151 mg/dL High 70-100 60 BUN 37 mg/dL High 6-24 Creatinine 1.5 mg/dL High 0.5-1.4 One Over Creatinine 0.66 BUN/Creatinine Ratio 24.7 High 8-20 Calcium 8.0 mg/dL Low 8.1-9.9 61 Laboratory test finding 07/05/2008 Thyroxine Free 0.66 NG/ML 0.61-1.24 62 T3 Total 1.18 NG/ML 0.5-1.7 T3 Free 2.74 pg/mL 2.39-6.79 TSH 0.90 MIU/ML 0.34-5.60 Cortisol 36.3 g/dL 63 Basic Metabolic Panel 05/13/2008 Sodium 138 mmol/L 135-145 Potassium 3.7 mmol/L 3.5-5.0 Chloride 109 mmol/L 101-111 Co2 (Carbon Dioxide) 25.0 mmol/L 22-32 Anion Gap 4.0 mmol/L 2-11 64 Glucose 150 mg/dL High 70-105 BUN 23 mg/dL 6-24 Creatinine 1.6 mg/dL High 0.5-1.4 One Over Creatinine 0.62 BUN/Creatinine Ratio 14.4 8-20 Calcium 9.7 mg/dL 8.1-9.9 65 Laboratory test finding 05/13/2008 Thyroxine Free 0.62 NG/ML 0.61-1.24 66 T3 Total 2.18 NG/ML High 0.5-1.7 T3 Free 3.45 pg/mL 2.39-6.79 TSH 1.33 MIU/ML 0.34-5.60 FSH 4.69 MIU/ML 67 Lutenizing Hormone 4.34 MIU/ML 68 Cortisol 8.0 g/dL 69 Hemoglobin A1c 6.1 % High <6.0 70 Insulinlike Growth Protein 3 2.5 ug/mL 3.0-6.2 71 [place] C/Ins Growth Fact 41 ng/mL 67-195 72 Growth Hormone 0.01 ng/mL 0.01-0.97 73 Basic Metabolic Panel 04/08/2008 Sodium 134 mmol/L Low 135-145 Potassium 3.6 mmol/L 3.5-5.0 Chloride 107 mmol/L 101-111 Co2 (Carbon Dioxide) 24.0 mmol/L 22-32 Anion Gap 3.0 mmol/L 2-11 74 Glucose 166 mg/dL High 70-105 BUN 27 mg/dL High 6-24 Creatinine 1.7 mg/dL High 0.5-1.4 One Over Creatinine 0.58 BUN/Creatinine Ratio 15.9 8-20 Calcium 9.2 mg/dL 8.1-9.9 75 Laboratory test finding 04/08/2008 Amylase 66 U/L 30-125 Lipase 59 U/L High 22-51 Cortisol 9.7 g/dL 76 Laboratory test finding 02/15/2008 Clotest N^NEGATIVE^JAMIL Surgical Pathology <SEE NOTE> 77 Laboratory test finding 02/09/2008 FSH 4.97 MIU/ML 78 Lutenizing Hormone 4.58 MIU/ML 79 Urine Collection Duration 02/09/2008 Cortisol, Free, Urine 6.4 ug/24h 3.5 -45 Urine Collection Duration 24 h () Urine Total Volume 2450 mL () 80 Laboratory test finding 02/09/2008 Prolactin 18.76 NG/ML 1.0-20.0 Testosterone Total 89.8 ng/dL Low 175-781 Laboratory test finding 02/02/2008 TSH 0.33 MIU/ML Low 0.34-5.60 81 Basic Metabolic Panel 02/02/2008 One Over Creatinine 0.58 81 Anion Gap 7.0 mmol/L 2-11 81, 82 BUN 31 mg/dL High 6-24 81 Calcium 10.0 mg/dL 8.7-10.2 81 Chloride 105 mmol/L 101-111 81 Co2 (Carbon Dioxide) 27.0 mmol/L 22-32 81 Glucose 99 mg/dL 70-105 81 Potassium 4.2 mmol/L 3.5-5.0 81 Sodium 139 mmol/L 135-145 81 BUN/Creatinine Ratio 18.2 8-20 81 Creatinine 1.7 mg/dL High 0.5-1.4 81 Laboratory test finding 02/02/2008 Free Thyroxine 0.78 NG/ML 0.61-1.24 81, 83 Stool For Polys 01/27/2008 Stool Color LIGHT BROWN 81 Stool Consistency FIRM 81 Stool Form FORMED 81 Stool For WBCS (Polys) NONE DETECTED Negative 81 Laboratory test 01/27/2008 O P: Giardia/Crypto Giardia and cryp 81, 84 finding Screen <SEE NOTE> Comp Metabolic Panel 01/19/2008 One Over Creatinine 0.55 85 Anion Gap 11.0 mmol/L 2-11 85, 86 Albumin/Globulin Ratio 1.3 1-3 85 Albumin 4.1 GM/DL 3.2-5.2 85 Alkaline Phosphatase 66 U/L 39-117 85 Alt (SGPT) 33 U/L 17-63 85 Ast (Sgot) 47 U/L High 12-42 85 BUN 28 mg/dL High 6-24 85 Calcium 9.4 mg/dL 8.7-10.2 85 Chloride 105 mmol/L 101-111 85 Co2 (Carbon Dioxide) 26.0 mmol/L 22-32 85 Globulin 3.1 GM/DL 2-4 85 Glucose 114 mg/dL High 70-105 85 Potassium 3.8 mmol/L 3.5-5.0 85 Sodium 142 mmol/L 135-145 85, 87 Bilirubin Total 0.9 mg/dL 0.4-1.5 85 Total Protein 7.2 GM/DL 6.2-8.1 85 BUN/Creatinine Ratio 15.6 8-20 85 Creatinine 1.8 mg/dL High 0.5-1.4 85 Laboratory test finding 01/19/2008 TSH 0.33 MIU/ML Low 0.34-5.60 85 CBC With Electronic Diff 01/19/2008 White Blood Count 6.3 CUMM 4.8-10.8 85 Abs Basophils 0.1 0-0.2 85 Abs Eosinophils 0.4 0-0.6 85 Absolute Neutrophil Count 4.0 1.5-7.7 85 Abs Lymphs 1.3 1.0-4.8 85 Abs Mononuclear 0.6 0-0.8 85 Basophil % 0.9 % 0-2 85 Hematocrit 41 % Low 42-52 85 Hemoglobin 14.1 g/dL 14.0-18.0 85 Eosinophil % 6.7 % High 0-6 85 Gran % 63.1 % 38-83 85 Lymph % 20.2 % 20-45 85 Mean Corpuscular HGB Cone 35 g/dL 32-36 85 Mean Corpuscular Hemoglob 31 pg 27-31 85 Mean Corpuscular Volume 89 um3 80-94 85 Mean Platelet Volume 9.7 um3 7.4-10.4 85 Mononuclear % 9.1 % High 1-9 85 Platelet Count 151 CUMM 150-450 85 Red Cell Count 4.56 CUMM Low 4.6-6.2 85 Redcell Distribution WDTH 15 % 10.5-15 85 Laboratory test finding 01/19/2008 Erythrocyte Sed Rate 19 MM/HR 0-40 85 Hemoglobin A1c 6.6 % High <6.0 85, 88 Surgical Pathology 08/20/2007 Surgical Pathology <SEE 89 NOTE> 1 *Ascorbic acid is present which may interfere with detection of blood. 2 Because ethnic data is not always readily [...] 15-29 5 Kidney failure <15 (or dialysis) 3 Please note the change in INR reference range effective 17. 4 SEE RESULT BELOW Name: CHRIS CARLOS : [address]: Anabella Huston MD Acct: [id number] Unit: [id number] AGE: 76 Location: [facility] Re10/28/17 SEX: M Status: REG REF SPEC: [id number] COLT: 10/28/17-[address]: Anabella Huston MD REQ: [id number] RECD: 10/28/17-152 STATUS: VANDA FELIX DR: Jose Burgos MD _ SOURCE: URINE SPDESC: ORDERED: Urine Culture QUERIES: Urine Source: Clean Catch Procedure Result Reported Site Urine Culture Final 10/29/17- 1146 ML No Growth (<1,000 CFU/mL) * ML - MAIN LAB ([facility]) . END OF REPORT * ML=Testing performed at Main Lab DEPARTMENT OF PATHOLOGY, [address] [place] [address] Nando Mercado M.D. Director [facility] # [id number] 5 Commuter Train Operator: [id number] Commuter Train Operator: [id number] Commuter Train Operator: [id number] 8 Anion gap measurement may be of limited value in the presence of any alkalosis, especially in a combined acid base disorder. . 9 Note change in reference range as of 06/23/08. The change was based on recommendations from the [employer]. 10 Please note change in reference range effective 08 . 11 Because ethnic data is not always readily [...] 15-29 5 Kidney failure <15 (or dialysis) 12 PLEASE NOTE NEW REFERENCE RANGES. 13 REFERENCE RANGE: AM 8.7-22.4 PM LESS THAN 10 . 14 Test Performed by: [facility] Dpt of Lab Med and Pathology [address] [place] [address] Wallpaperer: Calin Thompson III, M.D. 15 Anion gap measurement may be of limited value in the presence of any alkalosis, especially in a combined acid base disorder. . 16 Note change in reference range as of 06/23/08. The change was based on recommendations from the [employer]. 17 Please note change in reference range effective 08 . 18 Because ethnic data is not always readily [...] 15-29 5 Kidney failure <15 (or dialysis) 19 PLEASE NOTE NEW REFERENCE RANGES. 20 NORMAL RANGE MALES 2 - 12 NORMALLY MENSTRUATING FEMALES - Follicular Phase 1 - 18 - Mid-Cycle Peak 24 - 105 - Luteal Phase 0.6 - 20 POSTMENOPAUSAL FEMALES . 21 THERAPEUTIC TARGET FOR THE TREATMENT OF DIABETES MELLITUS PATIENTS IS <7% HBA1C, AND IN SELECTIVE PATIENTS <6.0%. PLEASE REFER TO [employer] DIABETIC CARE GUIDELINES FOR FURTHER INFORMATION. 22 Test Performed by: [facility] Dpt of Lab Med and Pathology [address] [place] [address] Wallpaperer: Calin Thompson III, M.D. 23 PLEASE NOTE NEW REFERENCE RANGES. 24 THERAPEUTIC TARGET FOR THE TREATMENT OF DIABETES MELLITUS PATIENTS IS <7% HBA1C, AND IN SELECTIVE PATIENTS <6.0%. PLEASE REFER TO [employer] DIABETIC CARE GUIDELINES FOR FURTHER INFORMATION. 25 Test Performed by: [facility] Dpt of Lab Med and Pathology [address] [place] [address] Wallpaperer: Calin Thompson III, M.D. 26 Anion gap measurement may be of limited value in the presence of any alkalosis, especially in a combined acid base disorder. . 27 Note change in reference range as of 06/23/08. The change was based on recommendations from the [employer]. 28 Please note change in reference range effective 08 . 29 PLEASE NOTE NEW REFERENCE RANGES. 30 NORMAL RANGE MALES 2 - 12 NORMALLY MENSTRUATING FEMALES - Follicular Phase 1 - 18 - Mid-Cycle Peak 24 - 105 - Luteal Phase 0.6 - 20 POSTMENOPAUSAL FEMALES . 31 * SERUM LEVELS OF PSA MEASURED USING THE [facility] MIRI ACCESS HYBRITECH IMMUNOASSAY SHOULD NOT BE INTERPRETED ABSOLUTE EVIDENCE OF THE PRESENCE OR ABSENCE OF DISEASE. THE PSA VALUE SHOULD BE USED IN CONJUNCTION WITH OTHER PERTINENT CLINICAL DIAGNOSTIC PROCEDURES. 32 Test Performed by: [facility] D[facility] of Lab Med and Pathology [address] [place] [address] Wallpaperer: Calin Thompson III, M.D. 33 FASTING 34 PLEASE NOTE NEW REFERENCE RANGES. 35 NORMAL RANGE MALES 2 - 12 NORMALLY MENSTRUATING FEMALES - Follicular Phase 1 - 18 - Mid-Cycle Peak 24 - 105 - Luteal Phase 0.6 - 20 POSTMENOPAUSAL FEMALES . 36 THERAPEUTIC TARGET FOR THE TREATMENT OF DIABETES MELLITUS PATIENTS IS <7% HBA1C, AND IN SELECTIVE PATIENTS <6.0%. PLEASE REFER TO [employer] DIABETIC CARE GUIDELINES FOR FURTHER INFORMATION. 37 Test Performed by: [facility] Dpt of Lab Med and Pathology [address] [place], [place] [id number] Wallpaperer: Calin Thompson III, M.D. 38 Anion gap measurement may be of limited value in the presence of any alkalosis, especially in a combined acid base disorder. . 39 Note change in reference range as of 06/23/08. The change was based on recommendations from the [employer]. 40 Please note change in reference range effective 08 . 41 TEST PERFORM BY [facility] PLEASE NOTE NORMAL RANGE 300-800 MOSM/KG 42 Anion gap measurement may be of limited value in the presence of any alkalosis, especially in a combined acid base disorder. . 43 Note change in reference range as of 06/23/08. The change was based on recommendations from the [employer]. 44 Please note change in reference range effective 08 . 45 TEST PERFORM BY [facility] PLEASE NOTE NORMAL RANGE 275-295 MOSMOL/KG 46 REFERENCE RANGE: AM 8.7-22.4 PM LESS THAN 10 . 47 Anion gap measurement may be of limited value in the presence of any alkalosis, especially in a combined acid base disorder. . 48 Note change in reference range as of 06/23/08. The change was based on recommendations from the [employer]. 49 Please note change in reference range effective 08 . 50 REFERENCE RANGE: AM 8.7-22.4 PM LESS THAN 10 . 51 Anion gap measurement may be of limited value in the presence of any alkalosis, especially in a combined acid base disorder. . 52 Note change in reference range as of 06/23/08. The change was based on recommendations from the [employer]. 53 Please note change in reference range effective 08 . 54 PLEASE NOTE NEW REFERENCE RANGES. 55 NORMAL RANGE MALES 2 - 12 NORMALLY MENSTRUATING FEMALES - Follicular Phase 1 - 18 - Mid-Cycle Peak 24 - 105 - Luteal Phase 0.6 - 20 POSTMENOPAUSAL FEMALES 15 - 62 . 56 REFERENCE RANGE: AM 8.7-22.4 PM LESS THAN 10 . 57 Test Performed by: [facility] Dpt of Lab Med and Pathology [address] [place] [address] Wallpaperer: Calin Thompson III, M.D. 58 Test Performed by: [facility] D[facility] of [facility] Med and Pathology [address] [place] [address] Wallpaperer: Calin Thompson III, M.D. 59 Anion gap measurement may be of limited value in the presence of any alkalosis, especially in a combined acid base disorder. . 60 Note change in reference range as of 06/23/08. The change was based on recommendations from the [employer]. 61 Please note change in reference range effective 08 . 62 PLEASE NOTE NEW REFERENCE RANGES. 63 REFERENCE RANGE: AM 8.7-22.4 PM LESS THAN 10 . 64 Anion gap measurement may be of limited value in the presence of any alkalosis, especially in a combined acid base disorder. . 65 Please note change in reference range effective 08 . 66 PLEASE NOTE NEW REFERENCE RANGES. 67 NORMAL RANGE MALES 1 - 20 NORMALLY MENSTRUATING FEMALES - Follicular Phase 3 - 9 - Mid-Cycle Peak 4 - 23 - Luteal Phase 1 - 6 POSTMENOPAUSAL FEMALES 16 - 114 . 68 NORMAL RANGE MALES 2 - 12 NORMALLY MENSTRUATING FEMALES - Follicular Phase 1 - 18 - Mid-Cycle Peak 24 - 105 - Luteal Phase 0.6 - 20 POSTMENOPAUSAL FEMALES 15 - 62 . 69 REFERENCE RANGE: AM 8.7-22.4 PM LESS THAN 10 . 70 THERAPEUTIC TARGET FOR THE TREATMENT OF DIABETES MELLITUS PATIENTS IS <7% HBA1C, AND IN SELECTIVE PATIENTS <6.0%. PLEASE REFER TO [employer] [employer] DIABETIC CARE GUIDELINES FOR FURTHER INFORMATION. 71 Test Performed by: [facility] Dpt of Lab Med and Pathology [address] [place] [address] Wallpaperer: Calin Thompson III, M.D. 72 Test Performed by: [facility] D[facility] of Lab Med and Pathology [address] [place] [address] Wallpaperer: Calin Thompson III, M.D. 73 Test Performed by: [facility] Dpt of Lab Med and Pathology [address] [place] [address] Wallpaperer: Calin Thompson III, M.D. 74 Anion gap measurement may be of limited value in the presence of any alkalosis, especially in a combined acid base disorder. . 75 Please note change in reference range effective 08 . 76 REFERENCE RANGE: AM 8.7-22.4 PM LESS THAN 10 . 77 ---- RUN DATE: 02/16/08 [facility] NMI LIVE PAGE 1 RUN TIME: 1520 Specimen Inquiry RUN USER: INTERFACE [id number] CHRIS CARLOS/M <REG REF 02/14> ([id number]) ITALO Mcqueen MD, Bairon Back -- Specimen: [id number] SOUT Spec Date: 02/15/[address]: Bairon hudson MD Spec Type: SURGICAL P Received: 02/15/08-4049 Copies to: Jude Raza III, MD SPECIMEN [...] 02/16/08 1519 -- -- DEPARTMENT OF PATHOLOGY, [address] [place] [address] [facility] Permit #[id number] Nando Mercado M.D. Director of Laboratories -- 78 NORMAL RANGE MALES 1 - 20 NORMALLY MENSTRUATING FEMALES - Follicular Phase 3 - 9 - Mid-Cycle Peak 4 - 23 - Luteal Phase 1 - 6 POSTMENOPAUSAL FEMALES 16 - 114 . 79 NORMAL RANGE MALES 2 - 12 NORMALLY MENSTRUATING FEMALES - Follicular Phase 1 - 18 - Mid-Cycle Peak 24 - 105 - Luteal Phase 0.6 - 20 POSTMENOPAUSAL FEMALES 15 - 62 . 80 Test Performed by: [facility] Dpt of Lab Med and Pathology [address] [place] [address] Wallpaperer: Calin Thompson III, M.D. 81 PATIENT MAY HAVE RESULTS PER DOCTOR'S AUTHORIZATION. Questions regarding this report should be directed to your doctor. 82 Anion gap measurement may be of limited value in the presence of any alkalosis, especially in a combined acid base disorder. . 83 PLEASE NOTE NEW REFERENCE RANGES. 84 Giardia and cryptosporidium antigen testing performed by immunoassay. If patient is immunocompromised or has traveled to or is from a developing country, a full ova and parasite exam with microscopic (OPMIC) is recommended. All samples will be held one month in case full ova and parasite testing is requested. Contact the Microbiology Department at [phone]. N^NEGATIVE BY IMMUNOASSAY^CRY N^NEGATIVE BY IMMUNOASSAY^RICH 85 FASTING PATIENT MAY HAVE RESULTS PER DOCTOR'S AUTHORIZATION. Questions regarding this report should be directed to your doctor. 86 Anion gap measurement may be of limited value in the presence of any alkalosis, especially in a combined acid base disorder. . 87 CORRECTED RESULT! WRONG RESULT WAS 134 88 THERAPEUTIC TARGET FOR THE TREATMENT OF DIABETES MELLITUS PATIENTS IS <7% HBA1C, AND IN SELECTIVE PATIENTS <6.0%. PLEASE REFER TO [employer] DIABETIC CARE GUIDELINES FOR FURTHER INFORMATION. 89 ---- RUN DATE: 08/21/07 [facility] NMI LIVE PAGE 1 RUN TIME: 1531 Specimen Inquiry RUN USER: INTERFACE [id number] CHRIS CARLOS/Jacky <REG REF 08/19> ([id number]) [id number] Gilliland MD, Reinaldo -- Specimen: [id number] SOUT Spec Date: 08/20/[address]: Reinaldo [...] specimen is received in formalin labelled Chris Marilyn Carlos, Right Colon Polyp, and consists of multiple, craft, soft tissue fragments measuring 1.0 x 0.6 x 0.4 cm. Submitted entirely, one cassette. 3) The specimen is received in formalin labelled Chris Marilyn Carlos, Polyp at 18 cm., and consists [...] 08/21/07 1531 -- -- DEPARTMENT OF PATHOLOGY, [address] [place] [address] [facility] Permit #[id number] Nando Mercado M.D. Director of Laboratories Karthik Angulo II, M.D . Pathologist -- Procedures Date CPT Code Description Status 11/05/201774516 Arthroplasty,Total Shoulder Replacement (TSR) Completed 11/05/201783255 Arthroplasty,Total Shoulder Replacement (TSR) Completed 10/02/2017 14447 Carpal Tunnel Release Completed 10/02/2017 51839 Neuroplasty &/Or Transposition; Ulnar Nerve At Completed Elbow 10/02/2017 71587 Neuroplasty &/Or Transposition; Ulnar Nerve At Completed Elbow 08/28/2017 48402 Carpal Tunnel Release Completed 08/28/2017 16024 Neuroplasty &/Or Transposition; Ulnar Nerve At Completed Elbow 08/28/2017 59524 Neuroplasty &/Or Transposition; Ulnar Nerve At Completed Elbow 05/20/2017 68973 Rad Exam; Wrist Limited, 2 Views Completed 01/28/2017 79878 Nerve Conduction 03-04 Studies Completed 10/29/201605902 THR Total Hip Replacement Completed 10/29/2016 97235 THR Total Hip Replacement Completed 10/28/2016 45742 Treadmill Interp/Report Only Completed 10/28/2016 36416 Stress Test Supervsn W/Out I/R Completed 10/27/2016 54422 EKG, Interpretation Only Completed 03/02/2014 23524 Rad Exam; Hand Comp Completed Encounters Type Date Location Provider [facility] E/M Dx Office Visit 11/09/2017 [place] brandi Casas [address] D69.6 12:33p Hospitalurszula Gonzalez K74.60 Z96.619 I10 Office Visit 11/08/2017 12:32p brandi Natarajan 17738 D69.6 Ying Gonzalez K74.60 I10 Office Visit 11/07/2017 12:32p [place] [address] K74.60 [facility] D69.6 I10 Office Visit 11/06/2017 12:31p [place] 71976 K74.60 Assoc, Hospitalists TE[employer]ER [employer]ING D69.6 Z96.619 I10 Office Visit 11/05/2017 12:30p [facility] Dwight Isaac, 28228 K74.60 Assoc, Hospitalists Marta D69.6 Z96.619 I10 Office Visit 09/16/2017 2:00p [facility] [place] [address] M19.011 C.M.ASharron Office Visit 05/30/2017 11:30a [place] Julia Araya, 58175 E11.42 [facility] Of Joyce Rico.Wong Office Visit 05/20/2017 3:00p [facility] [place] [address] G56.03 C.M.ASharron G56.23 Office Visit 01/27/2017 9:00a [place], 68225 E11.42 Neurolog[facility] Serv Of Joyce Gonzalez G56.03 G56.22 G62.9 Office Visit 10/31/2016 2[facility]p [facility] Acosta M.D. 30148 E11.22 Hospitalists S72.002A N18.3 I10 Office Visit 10/30/2016 2:53p [facility] Demond Acosta M.D. 76143 S72.002A Ass, Hospitalists N18.3 E11.22 I10 Office Visit 10/29/2016 2:52p [facility] Demond Acosta M.D. 15418 S72.002A Assoc, Hospitalists N18.3 E11.22 I10 Office Visit 10/28/2016 2:52p [facility] Esteban Gaona, 81397 N18.3 Hospitalists Carlos,FACP S72.002A E11.22 Office Visit 10/27/2016 2:51p [facility] Esteban Gaona, 05845 S72.002A Assoc, Hospitalists Carlos,FACP N18.3 E11.22 Office Visit 10/27/2016 1:44p [facility] Tomas Gaines, 63138 M87.052 Of Brittanie KNIGHT M16.12 Office Visit 10/26/2016 [facility] [place] [address] E11.22 Assoc, Hospitalists Marta S72.002A N18.3 I10 Office Visit 10/26/2016 1:44p [facility] Tomas Gaines, 03445 M87.052 Of Brittanie KNIGHT M16.12 Office Visit 10/25/2016 2:42p [facility] 97998 S72.002A Assoc, Carlos ZAFAR Hospitalists E11.22 N18.3 I10 Office Visit 07/12/2014 9:15a [facility] Gato Stewart M.D. 89860 716.91 Of Brittanie Office Visit 03/23/2014 9:15a [facility] Mary Leija, 71978 715.14 Of [facility] Office Visit 03/02/2014 1:15p [facility] Mary Leija, 56023 719.44 Of [facility] Office Visit 09/03/2013 6:03p [facility], 17461 482.9 Assoc, Hospitalists Carlos 250.00 995.90 401.9 Office Visit 09/02/2013 6:02p [facility], 80150 995.90 Assoc, Hospitalists Carlos 482.9 250.00 401.9 Office Visit 09/01/2013 6:02p [facility], 64270 995.90 Assoc, Hospitalists Carlos 482.9 250.00 401.9 Office Visit 08/31/2013 1:10p [place] [facility] Rudy Lezama, 79824 728.87 [facility] V12.40 Office Visit 08/31/2013 6:01p [facility], 62247 995.90 Assoc, Hospitalists Carlos 482.9 250.00 401.9 Office Visit 08/30/2013 6:00p [facility], 59434 995.90 Assoc,pc Hospitalists MKirill 482.9 250.00 401.9 Office Visit 08/29/2013 5:53p [facility], 71519 995.90 Assoc, Hospitalists M.Wong 482.9 250.00 401.9 Office Visit 08/28/2013 9:54a [facility], 10772 780.79 Assoc, Hospitalists M.Wong 276.1 275.2 276.51 Office Visit 08/09/2009 10:00a DO Not Use [facility], 88718 401.1 [facility] 250.00 780.57 227.3 Office Visit 02/07/2009 10:30a [place] [facility], 88447 250.00 [facility] [place].D. Office Visit 05/03/2008 9:15a [place] [facility], 74415 787.02 [facility] [place].D. 250.00 Office Visit 04/22/2008 10:00a Neurosurgery Services Toy Morales, 19555 227.9 Of [facility] M.Wong Office Visit 02/02/2008 9:30a [place] [facility], 43481 787.02 [facility] M.D. 789.00 244.9 250.00 Office Visit 01/19/2008 11:00a [place] [facility], 15772 787.02 [facility] [place].D. 780.79 250.00 Office Visit 12/14/2007 10:15a [place] [facility], 04584 250.00 [facility] M.D. Office Visit 11/13/2007 10:15a [place] [facility], 45445 250.00 [facility] [place].D. 401.1 244.9 Plan of Care Future Appointment(s):12/08/2017 10:30 am - Kentrell Benson M.D. at [facility] .M.A.12/16/2017 10:00 am - Carlo Trent MD at [facility] Of [facility] At Mdlhevkd09/26/2018 2:00 pm - Julia Araya M.D. at [facility]
[2017-11-21] MEDS ORDERED: ceFAZolin 1 GM in Dextrose (*) 0 GM/0 ML BAG IVPB ONE (09:35)
[2017-11-21] MEDS ORDERED: ceFAZolin 2 GM PREMIX (*) 0 GM/0 ML BAG IVPB ONE (09:35)
[2017-11-21] MEDS ORDERED: Buffered Lidocaine 0.9% SYRIN* 5 ML/SYR SYRINGE ONE (09:35)
[2017-11-21] MEDS ORDERED: Propofol* 10 MG/ML 20 ML BTL IV PUSH ONE (09:53)
[2017-11-21] MEDS ORDERED: Succinylcholine* 20 MG/ML 10 ML VIAL ONE (09:53)
[2017-11-21] MEDS ORDERED: fentaNYL* 50 MCG/ML 2 ML VIAL (100 MCG VIAL) ONE (09:53)
[2017-11-21] MEDS ORDERED: Midazolam* 1 MG/ML 10 ML VIAL (10 MG) ONE (09:53)
[2017-11-21] MEDS ORDERED: Lidocaine 2% PF * 5 ML VIAL ONE ×2 (09:53→11:51)
[2017-11-21] MEDS ORDERED: Ketorolac INJ* 30 MG/ML 1 ML VIAL ONE (09:53)
[2017-11-21] MEDS ORDERED: Dexamethasone IV* 4 MG/ML 1 ML (4 MG) ONE (09:53)
[2017-11-21] MEDS ORDERED: Ondansetron INJ* 2 MG/ML VIAL ONE (09:53)
[2017-11-21 10:36] LABS: ABS Basophils 0 10^3/ul (0-0.2); ABS Eosinophils 0.1 10^3/ul (0-0.6); ABS Lymphocytes 0.5 10^3/ul (1.0-4.8); ABS Monocytes 0.3 10^3/ul (0-0.8); ABS Neutrophils 3.3 10^3/ul (1.5-7.7); ABS Nucleated RBC 0 10^3/ul; Eosinophil % 1.3 % (0-6); Hematocrit 27 % (42-52); Hemoglobin 8.9 g/dl (14.0-18.0); Lymphocyte % 11.1 % (25-47); Mean Corpuscular HGB Conc 34 g/dl (31-36); Mean Corpuscular Hemoglobin 31 pg (27-31); Mean Corpuscular Volume 90 fL (80-94); Mean Platelet Volume 7 um3 (7.4-10.4); Nucleated Red Blood Cells % 0.1; Platelet Count 118 10^3/ul (150-450); Red Blood Count 2.93 10^6/ul (4.0-5.4); Red Cell Distribution Width 16 % (10.5-15); White Blood Count 4.2 10^3/ul (3.5-10.8)
[2017-11-21] MEDS ORDERED: ceFAZolin 2 GM PREMIX (*) 2 GM/50 ML BAG IVPB ONE (11:23)
[2017-11-21] MEDS ORDERED: ceFAZolin 1 GM in Dextrose (*) 1 GM/50 ML BAG IVPB ONE (11:23)
[2017-11-21] MEDS ORDERED: ROPIVACAINE 5 MG/ML 30 ML BTL (0.5%) ONE (11:51)
[2017-11-21] MEDS ORDERED: fentaNYL* 50 MCG/ML 5 ML VIAL (250 MCG VIAL) ONE (13:18)
[2017-11-21] MEDS ORDERED: Cisatracurium* 2 MG/ML MDV 5 ML ONE (13:22)
[2017-11-21] MEDS ORDERED: HYDROmorphone INJ* 1 MG/ML CARPUJECT SYRINGE ONE (14:50)
[2017-11-21] MEDS ORDERED: Labetalol IV* 5 MG/ML 20 ML VIAL ONE (14:57)
[2017-11-21] MEDS ORDERED: Levalbuterol 0.63MG/3ML NEB* UNIT OF USE INH ONE ×2 (15:24→15:41)
[2017-11-21] MEDS: Levalbuterol 0.63MG/3ML NEB* UNIT OF USE INH PRN ×2 (15:25→15:45)
[2017-11-21] MEDS ORDERED: Naloxone* 0.4 MG/ML 1 ML VIAL IV PRN (15:26)
[2017-11-21] MEDS ORDERED: Ondansetron INJ* 2 MG/ML VIAL IV PRN ×2 (15:26→15:29)
[2017-11-21] MEDS ORDERED: fentaNYL* 50 MCG/ML 2 ML VIAL (100 MCG VIAL) IV PRN (15:26)
[2017-11-21] MEDS ORDERED: Ondansetron TAB* 4 MG PO PRN (15:29)
[2017-11-21] MEDS ORDERED: Magnesium Hydroxide LIQ* 30 ML UDC PO PRN (15:29)
[2017-11-21] MEDS ORDERED: Cyclobenzaprine TAB* 10 MG PO PRN (15:29)
[2017-11-21] MEDS ORDERED: Temazepam CAP* 15 MG PO PRN (15:29)
[2017-11-21] MEDS ORDERED: diPHENhydraMINE PO* 25 MG PO PRN (15:29)
[2017-11-21] MEDS ORDERED: oxyCODONE TAB* 5 MG TAB PO PRN (15:29)
[2017-11-21] MEDS ORDERED: Bisacodyl SUPP* 10 MG SUPP PR PRN (15:29)
[2017-11-21] MEDS ORDERED: diPHENhydraMINE IV* 50 MG/ML 1 ml VIAL (BENADRYL) IV PRN (15:29)
[2017-11-21] MEDS ORDERED: Acetaminophen TAB* 325 MG PO PRN (15:29)
[2017-11-21] MEDS ORDERED: Polyethylene Glycol 3350* 17 GM PACKET PO PRN (15:29)
[2017-11-21] MEDS ORDERED: oxyCODONE/Acetamin 5/325 MG* TAB PO PRN (15:29)
[2017-11-21] MEDS ORDERED: Calcium Carbonate CHEW TAB* 500 MG (TUMS) PO PRN (15:38)
--- NOTE | 2017-11-21 15:46 | RAD ---
HISTORY: Preoperative evaluation COMPARISONS: November 18, 2017 VIEWS: 1, single frontal portable view of the right shoulder FINDINGS: BONE DENSITY: Normal. BONES: The patient is status post glenohumeral arthroplasty. There is no hardware failure or osteolysis. JOINTS: Again noted is diastasis of the AC joint. The patient is status post right shoulder arthroplasty. ALIGNMENT: There is dislocation of the humeral component with respect to the scapular component. SOFT TISSUES: Unremarkable. OTHER FINDINGS: None. IMPRESSION: DISLOCATION OF RIGHT SHOULDER PROSTHESIS.
[2017-11-21] MEDS ORDERED: Dextrose 50% Syringe 50 ML* 25 GM/50 ML SYRINGE IV PUSH PRN (16:13)
--- NOTE | 2017-11-21 16:19 | RAD ---
INDICATION: Status post right shoulder arthroplasty COMPARISON: Most recent comparison radiograph is dated November 21, 2017 TECHNIQUE: 3 views of the right shoulder were obtained. FINDINGS: The right shoulder prosthesis appears to be anatomically aligned in multiple projections. The visualized bones are intact and appropriately aligned. A postsurgical drain is noted in place. IMPRESSION: ANATOMIC ALIGNMENT OF RIGHT SHOULDER PROSTHESIS.
[2017-11-21] MEDS ORDERED: Insulin LISPRO* 1 UNITS UNIT SUBCUT ONE (16:59)
[2017-11-21] MEDS: Insulin LISPRO* 1 UNITS UNIT SUBCUT SCH (17:02)
[2017-11-21] MEDS ORDERED: Gabapentin CAP(*) 300 MG PO SCH (18:00)
[2017-11-21] MEDS ORDERED: Allopurinol TAB* 300 MG PO SCH (18:00)
--- NOTE | 2017-11-21 20:23 | CONS ---
CC: Dr. Burogs; Dr. Huston* CONSULTATION REPORT: DATE OF CONSULT: 11/21/17 PRIMARY CARE PROVIDER: Dr. Burgos. ATTENDING PHYSICIAN WHILE IN THE HOSPITAL: Dr. Carlo Bae (report being dictated by Kevin Isaac NP). REQUESTING PHYSICIAN IN CONSULT: Dr. Huston. REASON FOR MEDICAL CONSULTATION: Evaluation and medical management of comorbid medical conditions. HISTORY OF PRESENT ILLNESS: Mr. Bae is a 76-year-old male patient, who actually was just here on the 11/05/17 of this month underwent a right total shoulder arthroplasty reverse. He was discharged to rehab facility in [place]. He had a followup earlier this week with Dr. Huston and in the office they did x-rays to evaluate the shoulder and it was noted that it appeared to be dislocated. He came to the OR today for possible reduction of this. Unfortunately, they had to convert to an open procedure and they did an open reduction and actually replaced some of the hardware on the patient because of the dislocation. He was evaluated in the PACU. He does have a significant history of diabetes, depression, hypertension, neuropathy, pituitary tumor, Guillain-[place], history of nephrolithiasis, arthritis, gout, PTSD, PVD, prostate cancer, history of hypothyroidism, autoimmune hepatitis with cirrhosis, and thrombocytopenia. He was evaluated in the PACU. He says he is not having any chest pain. He does not feel short of breath. He says he is having some right shoulder pain. He denies having any nausea or vomiting. He says that he just feels a little tired. He says that he does not have any abdominal discomfort and he is not feeling like he is going to vomit and has not vomited. There was concern because of his medical complexity and we were asked to evaluate in consult. I do see that the patient is on Tamiflu once daily. We will need to touch base with the rehab facility where he came from to see how long he has been on this, it looks like he is on the prophylactic dose. PAST MEDICAL HISTORY: Significant for: 1. Diabetes. 2. Depression. 3. Hypertension. 4. Neuropathy. 5. Pituitary tumor. 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 7. Nephrolithiasis. 8. Arthritis. 9. Gout. 10. PTSD. 11. PVD. 12. Prostate cancer. 13. Hypothyroidism. 14. Autoimmune hepatitis with cirrhosis. 15. 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 PAST SURGICAL HISTORY: 1. Carpal tunnel repair. 2. Bilateral shoulder arthroscopy. 3. Right shoulder total reverse. 4. Revision of right total shoulder. 5. Left hip surgery. 6. Pituitary tumor removal. MEDICATIONS: His home medications according to the preop list includes: 1. Oxycodone 10 mg every 4 hours as needed. 2. Mucinex 1 tablet p.o. b.i.d. 3. Neurontin 1200 mg at bedtime. 4. Victoza 1.2 mg subcu q.a.m. 5. Tylenol 650 mg every 4 hours as needed. 6. Restoril 15 mg p.o. at bedtime. 7. Tamiflu 75 mg daily. 8. Prednisone 2 mg p.o. daily. 9. Amlodipine 10 mg daily. 10. Synthroid 150 mcg daily. 11. Paxil 40 mg daily. 12. Glipizide 5 mg p.o. b.i.d. 13. Heparin 5000 units subcu b.i.d. 14. Famotidine 20 mg daily. 15. Colace 200 mg daily. 16. Allopurinol 300 mg daily. 17. Tums 500 mg p.o. b.i.d. as needed. REVIEW OF SYSTEMS: There is no documented fever. Denied having any significant weight change. No double vision. There is no ear discharge. Denies having any rhinorrhea. No sore throat. No thyroid enlargement. Denies having any chest pain. There is no orthopnea, no nocturnal dyspnea. There is no abdominal pain. No nausea, no vomiting. There is no dysuria, no frequency. There is no seizure, no loss of consciousness. No pruritus and no skin ulcerations. Review of 14 systems completed, all others negative. PHYSICAL EXAM: Vital Signs: Blood pressure 137/78, pulse 75, respirations 18, O2 sat 96%, temperature 97.2. General: At this time, Mr. Bae is a 76-year- old male patient. He was evaluated in the PACU. He does not appear to be in any acute distress. HEENT: Head: Atraumatic and normocephalic. Eyes: Sclerae anicteric and not pale. Neck: Supple. Throat: Oral mucosa appears to be moist. No oropharyngeal erythema. Heart: Sounds S1 and S2. Regular rate and rhythm. No murmurs, rubs, or gallops. Lungs: He does have expiratory wheezing in the bases. He had equal diaphragmatic expansion. Abdomen : Soft, flat, nontender. Bowel sounds hypoactive. Extremities: Pulses were 2 + throughout. Distal CSM checks were intact to his right upper extremity. He is moving his lower extremities with 5/5 strength. Neurologically, he is awake , he is alert, he is oriented x3. His speech is clear. No gross focal deficits. His skin was intact with the exception, he has an incision to the right shoulder which is clean, dry and intact and Hemovac drain is intact. DIAGNOSTIC STUDIES/LAB DATA: Today WBC of 4.2, RBC of 2.93, hemoglobin of 8.9, hematocrit of 27, and a platelet count of 118. ESR of 64. His sodium is 124, potassium is pending, chloride of 104, bicarb 23, BUN 18, creatinine 1.27, and a CRP was 23. Old medical records were reviewed. ASSESSMENT AND PLAN: Mr. Bae is a complex 76-year-old male patient with multiple medical problems, coming into the orthopedic services today for a revision of his right total shoulder. Recommendations at this point are: 1. Status post revision of right total shoulder. Defer the management to Dr. Huston and her team. 2. Diabetes. I will place the patient on lispro sliding scale. 3. Depression and posttraumatic stress disorder. Continue his Prozac. 4. Hypertension. I will continue his blood pressure medications when we are able. His blood pressure in the PACU has been in the low 100s now. The blood pressure I seen previously was noted to be his preop blood pressure, which was 137; postoperatively, it is in the low 100s to 110s systolically, so I will hold his blood pressure meds. 5. History of pituitary tumor. Follow with the primary. 6. Neuropathy. Continue with gabapentin. 7. History of thrombocytopenia. We will follow the platelets closely in the setting of surgery. If there is any evidence of bleeding or if he becomes more thrombocytopenic, we will consult with Hematology and possibly get a platelet transfusion. We will continue heparin both for DVT prophylaxis and follow the platelets. 8. History of peripheral vascular disease. Continue meds as prescribed. 9. Hypothyroidism. Continue Synthroid. 10. History of autoimmune hepatitis with cirrhosis. Continue his prednisone. For the time being if he does have prolonged hypotension, we could consider giving him stress dose steroids, but at this time we will monitor. 11. Gout. Continue meds as prescribed. 12. Arthritis. Continue with supportive care and p.r.n. pain medication. 13. History of nephrolithiasis, not an active issue. 14. DVT prophylaxis. I will defer to the primary team at this point. 15. Code status. Full code. 16. Fluid, electrolytes, and nutrition. I would recommend consistent carb diet. TIME SPENT: On the consult was approximately 60 minutes, greater than half the time was spent [id number] with the patient obtaining my history and physical, the other half time was spent going over the plan of care with the patient and implementing plan of care. I did discuss the plan of care with my attending, Dr. Bae; he is in agreement. KEVIN ISAAC NP [id number]/[facility] #: [id number] SOL
[2017-11-21] MEDS ORDERED: glipiZIDE TAB* 5 MG PO SCH (21:00)
[2017-11-21] MEDS ORDERED: Guaifenesin/Pseudo 600/60(NF) TAB (Mucinex D) PO SCH (21:00)
[2017-11-21] MEDS: Gabapentin CAP(*) 300 MG PO SCH (21:07)
[2017-11-21] MEDS: ceFAZolin 1 GM ADVAN(*) 1 GM in NS 0.9% 50 ML* 50 ML IVPB SCH (21:24)
[2017-11-21] MEDS ORDERED: ceFAZolin 1 GM in Dextrose (*) 1 GM/50 ML BAG IVPB SCH (21:30)
[2017-11-22] MEDS: Levothyroxine TAB* 150 MCG TAB PO SCH (05:39)
[2017-11-22] MEDS: ceFAZolin 1 GM ADVAN(*) 1 GM in NS 0.9% 50 ML* 50 ML IVPB SCH ×2 (05:41→14:11)
[2017-11-22] MEDS: oxyCODONE/Acetamin 5/325 MG* TAB PO PRN ×4 (07:23→21:58)
[2017-11-22 07:50] LABS: ABS Basophils 0 10^3/ul (0-0.2); ABS Eosinophils 0 10^3/ul (0-0.6); ABS Lymphocytes 0.3 10^3/ul (1.0-4.8); ABS Monocytes 0.2 10^3/ul (0-0.8); ABS Nucleated RBC 0 10^3/ul; Eosinophil % 0.1 % (0-6); Hematocrit 24 % (42-52); Hemoglobin 8.3 g/dl (14.0-18.0); Lymphocyte % 6.6 % (25-47); Mean Corpuscular HGB Conc 34 g/dl (31-36); Mean Corpuscular Hemoglobin 31 pg (27-31); Mean Corpuscular Volume 89 fL (80-94); Mean Platelet Volume 7 um3 (7.4-10.4); Nucleated Red Blood Cells % 0.2; Platelet Count 99 10^3/ul (150-450); Red Blood Count 2.73 10^6/ul (4.0-5.4); Red Cell Distribution Width 16 % (10.5-15); White Blood Count 4.6 10^3/ul (3.5-10.8)
--- NOTE | 2017-11-22 08:47 | PN ---
Progress Note - Progress Note Date of Service: 11/22/17 SOAP: Subjective: POD #1 Right shoulder open reduction, poly exchange. States that he is having pain, minimal relief with medication. Denies paresthesias or numbness, denies f/ c. Objective: Vitals: Temp Pulse Resp BP Pulse Ox 97.5 F 69 16 134/67 100 11/22/17 07:25 11/22/17 07:25 11/22/17 07:25 11/22/17 07:25 11/22/17 07:25 Gen: A&O x3, NAD at rest RUE: Dressing C/D/I, hemovac with no active output. +f/e at wrist, MCP, PIP and DIPs. N/V intact Assessment: POD #1 Right shoulder open reduction, poly exchange Plan: Passive ROM right shoulder with PT, active elbow, wrist and hand Hemovac pulled, tip intact Cont Percocet for pain with cryotherapy Possible d/c home tomorrow
[2017-11-22] MEDS ORDERED: amLODIPine TAB* 5 MG PO SCH (09:00)
[2017-11-22] MEDS ORDERED: Liraglutide (NF) 18 MG/3 ML SUBCUT SCH (09:00)
--- NOTE | 2017-11-22 09:14 | PN ---
Progress Note - Progress Note Date of Service: 11/22/17 Note: Pt seen and examined. Eating breakfast. Comfortable. Sling in place. pillow behind elbow Temp Pulse Resp BP Pulse Ox 97.5 F 69 16 134/67 100 11/22/17 07:25 11/22/17 07:25 11/22/17 07:25 11/22/17 07:25 11/22/17 07:[address] drain removed. SILT grossly distally. able to flex/ext digits. Laboratory Results - last 24 hr 11/21/17 11/21/17 11/21/17 10:15 10:15 16:52 WBC 4.2 RBC 2.93 L Hgb 8.9 L Hct 27 L MCV 90 MCH 31 MCHC 34 RDW 16 H Plt Count 118 L MPV 7 L Neut % (Auto) 78.1 Lymph % (Auto) 11.1 L [place] % (Auto) 8.3 Eos % (Auto) 1.3 Baso % (Auto) 1.2 Absolute Neuts (auto) 3.3 Absolute Lymphs (auto) 0.5 L Absolute Monos (auto) 0.3 Absolute Eos (auto) 0.1 Absolute Basos (auto) 0 Absolute Nucleated RBC 0 Nucleated RBC % 0.1 ESR 64 H Sodium 134 Potassium TNP Chloride 104 Carbon Dioxide 23 Anion Gap 7 BUN 18 Creatinine 1.27 H Est GFR ( Amer) 70.7 Est GFR (Non-Af Amer) 55.0 BUN/Creatinine Ratio 14.2 Glucose 99 POC Glucose (mg/dL) 263 H Calcium 8.9 C-Reactive Protein 23.12 H 11/22/17 11/22/17 07:21 07:21 WBC 4.6 RBC 2.73 L Hgb 8.3 L Hct 24 L MCV 89 MCH 31 MCHC 34 RDW 16 H Plt Count 99 L MPV 7 L Neut % (Auto) 87.8 H Lymph % (Auto) 6.6 L [place] % (Auto) 5.3 Eos % (Auto) 0.1 Baso % (Auto) 0.2 Absolute Neuts (auto) 4.0 Absolute Lymphs (auto) 0.3 L Absolute Monos (auto) 0.2 Absolute Eos (auto) 0 Absolute Basos (auto) 0 Absolute Nucleated RBC 0 Nucleated RBC % 0.2 ESR Sodium 133 Potassium 4.5 Chloride 103 Carbon Dioxide 22 Anion Gap 8 BUN 24 Creatinine 1.43 H Est GFR ( Amer) 61.7 Est GFR (Non-Af Amer) 48.0 BUN/Creatinine Ratio 16.8 Glucose 186 H POC Glucose (mg/dL) Calcium 8.5 L C-Reactive Protein A/P POD#1 revision R shoulder for dislocation NWB sling at all times except for PT PT/OT dvt ppx while inhouse cr bumped. appreciate medicine consult and assistance Elbow needs to be in site of patient at all times. will recheck xrays since patient supposedly laid down on it dispo when stable
[2017-11-22] MEDS: Oseltamivir CAP* 75 MG PO SCH (09:23)
[2017-11-22] MEDS: predniSONE TAB* 1 MG PO SCH (09:23)
[2017-11-22] MEDS: Docusate CAP* 100 MG PO SCH (09:24)
[2017-11-22] MEDS: Allopurinol TAB* 300 MG PO SCH (09:24)
[2017-11-22] MEDS: FLUoxetine CAP* 20 MG PO SCH (09:24)
[2017-11-22] MEDS: Famotidine TAB* 20 MG PO SCH (09:24)
[2017-11-22] MEDS: Insulin LISPRO* 1 UNITS UNIT SUBCUT SCH ×3 (09:25→17:52)
--- NOTE | 2017-11-22 09:46 | RAD ---
HISTORY: Right shoulder injury COMPARISONS: November 21, 2012 VIEWS: 2, frontal and outlet views of the right shoulder FINDINGS: BONE DENSITY: Normal. BONES: The patient is status post right shoulder arthroplasty. On the submitted images, there is no appreciable hardware failure or osteolysis. JOINTS: The patient is status post right shoulder arthroplasty. ALIGNMENT: On the submitted images, the alignment is near-anatomic. SOFT TISSUES: Unremarkable. OTHER FINDINGS: None. IMPRESSION: STATUS POST RIGHT SHOULDER ARTHROPLASTY
[2017-11-22] MEDS: Morphine INJ* 2 MG/ML 1 ML SYRINGE (TWO MG - NEW SYRINGE VERSION) IV PRN ×3 (09:49→19:19)
--- NOTE | 2017-11-22 13:25 | PN ---
Subjective Date of Service: 11/22/17 Interval History: Patient seen and examined at bedside. Mike fever, chills, shortness of breath, chest discomfort, N/V/D. Pt states that he intermittently has wheezing and reports allergy symptoms year round. Pain is controlled. He reports being exposed to influenza at the rehab facility. Family History: Unchanged from Admission Social History: Unchanged from Admission Past Medical History: Unchanged from Admission Objective Active Medications: Acetaminophen (Tylenol Tab*) 650 mg PO Q4H PRN Reason: PAIN OR TEMPERATURE Allopurinol (Zyloprim Tab*) 300 mg PO 0900 ADRIAN Bisacodyl (Dulcolax Supp*) 10 mg DC DAILY PRN Reason: constipation Calcium Carbonate (Tums*) 500 mg PO BID PRN Reason: HEARTBURN Cyclobenzaprine HCl (Flexeril Tab*) 10 mg PO TID PRN Reason: SPASMS Dextrose (D50w Syringe 50 Ml*) 12.5 gm IV PUSH .FOR FS < 60 - SS PRN Reason: FS < 60 Diphenhydramine HCl (Benadryl Iv*) 25 mg IV Q6H PRN Reason: itching Diphenhydramine HCl (Benadryl Po*) 25 mg PO Q6H PRN Reason: itching Docusate Sodium (Colace Cap*) 200 mg PO QAM ADRIAN Enoxaparin Sodium (Lovenox(*)) 40 mg SUBCUT Q24H ADRIAN Famotidine (Pepcid Tab*) 20 mg PO QAM ADRIAN Fluoxetine HCl (Prozac Cap*) 40 mg PO QAM ADRIAN Gabapentin (Neurontin Cap(*)) 1,200 mg PO 2100 ADRIAN Lactated Ringer's (Lactated Ringers 1000 Ml Bag*) 1,000 mls @ 100 mls/hr IV PER RATE ADRIAN Cefazolin Sodium 1 gm/ Sodium (Chloride) 50 mls @ 200 mls/hr IVPB Q8H ADRIAN Stop: 11/22/17 13:44 Insulin Human Lispro (Humalog*) 0 units SUBCUT AC ADRIAN Lactulose (Lactulose*) 30 ml PO Q6H PRN Reason: constipation Levothyroxine Sodium (Synthroid Tab*) 150 mcg PO 0600 ADRIAN Magnesium Hydroxide (Milk Of Magnesia Liq*) 30 ml PO Q6H PRN Reason: constipation Morphine Sulfate (Morphine Inj (Syringe)*) 2 mg IV Q2H PRN Reason: PAIN Naloxone HCl (Narcan*) 0.08 mg IV Q2M PRN Reason: severe induced resp depression Stop: 11/22/17 15:25 Ondansetron HCl (Zofran Inj*) 4 mg IV Q6H PRN Reason: nausea Ondansetron HCl (Zofran Tab*) 4 mg PO Q6H PRN Reason: NAUSEA Oseltamivir Phosphate (Tamiflu Cap*) 75 mg PO QAM ADRIAN Oxycodone HCl (Roxycodone Tab*) 10 mg PO Q4H PRN Reason: PAIN Oxycodone/Acetaminophen (Percocet 5/325 Tab*) 2 tab PO Q4H PRN Reason: PAIN Oxycodone/Acetaminophen (Percocet 5/325 Tab*) 1 tab PO Q4H PRN Reason: PAIN Polyethylene Glycol/Electrolytes (Miralax*) 17 gm PO DAILY PRN Reason: Constipation Prednisone (Deltasone Tab*) 2 mg PO QAM ADRIAN Temazepam (Restoril Cap*) 15 mg PO BEDTIME PRN Reason: INSOMNIA Vital Signs - 8 hr 11/22/17 11/22/17 11/22/17 07:23 07:25 08:00 Temperature 97.5 F Pulse Rate 69 Respiratory 18 16 18 Rate Blood Pressure 134/67 (mmHg) O2 Sat by Pulse 100 100 Oximetry 11/22/17 11/22/17 11/22/17 09:49 09:51 11:19 Temperature 98.0 F Pulse Rate 71 Respiratory 16 16 16 Rate Blood Pressure 117/55 (mmHg) O2 Sat by Pulse 95 Oximetry 11/22/17 11/22/17 11:29 11:36 Temperature Pulse Rate Respiratory 16 18 Rate Blood Pressure (mmHg) O2 Sat by Pulse Oximetry Oxygen Devices in Use Now: None Appearance: NAD, sitting up in a chair Ears/Nose/Mouth/Throat: Mucous Membranes Moist Respiratory: Symmetrical Chest Expansion and Respiratory Effort, Clear to Auscultation Cardiovascular: NL Sounds; No Murmurs; No JVD, RRR Abdominal: NL Sounds; No Tenderness; No Distention Extremities: No Edema Skin: No Rash or Ulcers, - - Dressing to right shoulder clean, dry and intact Neurological: Alert and Oriented x 3, NL Muscle Strength and Tone Lines/Tubes/Other Access: Clean, Dry and Intact Peripheral IV - site benign Nutrition: Taking PO's Result Diagrams: 11/22/17 07:21 11/22/17 07:21 Microbiology and Other Data: Microbiology 11/21/17 13:43 Wound Gram Stain - Final Tissue - Shoulder Right Tissue Culture - Preliminary No Growth Day 1 11/21/17 13:43 Gram Stain - Final Shoulder Right Wound Culture - Preliminary No Growth Day 1 11/21/17 13:43 Anaerobic Culture - Preliminary Misc Source (See Comment) - Shoulder Right No Growth Day 1 Assess/Plan/Problems-Billing Assessment: Mr. Escobar is a male with PMH significant for DM, depression, HTN, neuropathy, pituitary tumor, PTSD, PVD, arthritis, GOUT, prostate CA, hypothyroidism, autoimmune hepatitis with cirrhosis, thyrombocytopenia, and Guillaian [place] who presented to the hospital for an elective - Patient Problems (1) S/p reverse total shoulder arthroplasty Code(s): Z96.619 - PRESENCE OF UNSPECIFIED ARTIFICIAL SHOULDER JOINT SNOMED Code(s): 072913265 Comment: - S/P revision, POD #1 - Management per Ortho - PT/OT, pain management (2) Type 2 diabetes mellitus Comment: - Glucose 180-260's - Continue Lispro SS (3) Exposure to influenza Code(s): Z20.828 - CONTACT W AND EXPOSURE TO OTH VIRAL COMMUNICABLE DISEASES SNOMED Code(s): 694989078 Comment: - Continue Tamiflu through 11/30 (4) Depression Code(s): F32.9 - MAJOR DEPRESSIVE DISORDER, SINGLE EPISODE, UNSPECIFIED SNOMED Code(s): 68811601 Comment: - With PTSD - Continue home medications (5) HTN (hypertension) Code(s): I10 - ESSENTIAL (PRIMARY) HYPERTENSION SNOMED Code(s): 73291103 Comment: - Mostly normotensive - Continue to follow (6) CKD (chronic kidney disease) Code(s): N18.9 - CHRONIC KIDNEY DISEASE, UNSPECIFIED SNOMED Code(s): 362788672 Comment: - Stable. - Continue to monitor. (7) GERD (gastroesophageal reflux disease) Code(s): K21.9 - GASTRO-ESOPHAGEAL REFLUX DISEASE WITHOUT ESOPHAGITIS SNOMED Code(s): 922303584 Comment: - Continue famotidine. (8) Gout Code(s): M10.9 - GOUT, UNSPECIFIED SNOMED Code(s): 91769396 Comment: - Continue allopurinol. 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 (13) Thrombocytopenia Code(s): D69.6 - THROMBOCYTOPENIA, UNSPECIFIED SNOMED Code(s): 211116706 Comment: - Stable (14) DVT prophylaxis Code(s): AMY0949 - SNOMED Code(s): 021110505 Comment: - Lovenox and SCDs per Ortho (15) Full code status Code(s): Z78.9 - OTHER SPECIFIED HEALTH STATUS SNOMED Code(s): 064053138 Status and Disposition: Inpatient. Discharge per Orthopedics when medically stable. Thank you for this consultation.
[2017-11-22] MEDS: Enoxaparin(*) 40 MG/0.4 ML SYR SUBCUT SCH (14:09)
--- NOTE | 2017-11-22 20:08 | PN ---
Progress Note - Progress Note Date of Service: 11/22/17 Note: Xrays reviewed and no changes.No evidence of dislocation.
[2017-11-22] MEDS: Gabapentin CAP(*) 300 MG PO SCH (21:52)
[2017-11-22] MEDS: guaiFENesin ER TAB 600 MG PO PRN (21:52)
[2017-11-23 05:21] LABS: Hematocrit 25 % (42-52); Hemoglobin 8.4 g/dl (14.0-18.0); Mean Platelet Volume 7 um3 (7.4-10.4); Platelet Count 101 10^3/ul (150-450)
[2017-11-23] MEDS: Levothyroxine TAB* 150 MCG TAB PO SCH (05:41)
[2017-11-23] MEDS: predniSONE TAB* 1 MG PO SCH (09:28)
[2017-11-23] MEDS: oxyCODONE/Acetamin 5/325 MG* TAB PO PRN ×4 (09:28→21:38)
[2017-11-23] MEDS: FLUoxetine CAP* 20 MG PO SCH (09:28)
[2017-11-23] MEDS: Famotidine TAB* 20 MG PO SCH (09:28)
[2017-11-23] MEDS: Allopurinol TAB* 300 MG PO SCH (09:28)
[2017-11-23] MEDS: Docusate CAP* 100 MG PO SCH (09:28)
[2017-11-23] MEDS: Oseltamivir CAP* 75 MG PO SCH (09:28)
--- NOTE | 2017-11-23 09:28 | PN ---
Progress Note - Progress Note Date of Service: 11/23/17 SOAP: Subjective: POD #2 Right shoulder open reduction, poly exchange. States that he is mild pain , pain control okay, significantly improved from yesterday. Denies paresthesias or numbness, denies f/c. Objective: Vital Signs Temp Pulse Resp BP Pulse Ox 97.5 F 62 16 106/52 100 11/23/17 03:43 11/23/17 03:43 11/23/17 03:43 11/23/17 03:43 11/23/17 03:43 Laboratory Results - last 24 hr 11/22/17 11/22/17 11/23/17 11:39 16:30 05:02 Hgb 8.4 L Hct 25 L Plt Count 101 L MPV 7 L POC Glucose (mg/dL) 185 H 173 H 11/23/17 08:46 Hgb Hct Plt Count MPV POC Glucose (mg/dL) 142 H Gen: A&O x3, NAD at rest RUE: Dressing C/D/I, incision C/D/I with no erythema or warmth. +f/e at wrist, MCP, PIP and DIPs. N/V intact distally. Assessment: POD #2 Right shoulder open reduction, poly exchange Plan: - Passive ROM right shoulder with PT, active elbow, wrist and hand - Cont Percocet for pain with cryotherapy - Dressing changed today. - D/C planned to SNF at [facility], bed being held. Plan to transfer tomorrow morning.
[2017-11-23] MEDS: Insulin LISPRO* 1 UNITS UNIT SUBCUT SCH ×3 (09:29→17:34)
[2017-11-23] MEDS: Morphine INJ* 2 MG/ML 1 ML SYRINGE (TWO MG - NEW SYRINGE VERSION) IV PRN (10:30)
[2017-11-23] MEDS: Enoxaparin(*) 40 MG/0.4 ML SYR SUBCUT SCH (13:18)
--- NOTE | 2017-11-23 14:01 | PN ---
Subjective Date of Service: 11/23/17 Interval History: Patient seen and examined at bedside. Denies fever, chills, shortness of breath , chest discomfort, N/V/D. Pt states that he has needed some breakthrough pain medication last night and this morning. Continues to report congestion and is requesting mucinex. No BM in ~ 3 days, but reports passing flatus. Family History: Unchanged from Admission Social History: Unchanged from Admission Past Medical History: Unchanged from Admission Objective Active Medications: Acetaminophen (Tylenol Tab*) 650 mg PO Q4H PRN Reason: PAIN OR TEMPERATURE Allopurinol (Zyloprim Tab*) 300 mg PO 0900 ADRIAN Bisacodyl (Dulcolax Supp*) 10 mg GA DAILY PRN Reason: constipation Calcium Carbonate (Tums*) 500 mg PO BID PRN Reason: HEARTBURN Cyclobenzaprine HCl (Flexeril Tab*) 10 mg PO TID PRN Reason: SPASMS Dextrose (D50w Syringe 50 Ml*) 12.5 gm IV PUSH .FOR FS < 60 - SS PRN Reason: FS < 60 Diphenhydramine HCl (Benadryl Iv*) 25 mg IV Q6H PRN Reason: itching Diphenhydramine HCl (Benadryl Po*) 25 mg PO Q6H PRN Reason: itching Docusate Sodium (Colace Cap*) 200 mg PO QAM ADRIAN Enoxaparin Sodium (Lovenox(*)) 40 mg SUBCUT Q24H ADRIAN Famotidine (Pepcid Tab*) 20 mg PO QAM ADRIAN Fluoxetine HCl (Prozac Cap*) 40 mg PO QAM ADRIAN Gabapentin (Neurontin Cap(*)) 1,200 mg PO 2100 ADRIAN Guaifenesin (Mucinex*) 600 mg PO BID PRN Reason: COUGH Lactated Ringer's (Lactated Ringers 1000 Ml Bag*) 1,000 mls @ 100 mls/hr IV PER RATE ADRIAN Insulin Human Lispro (Humalog*) 0 units SUBCUT AC ADRIAN Reason: Protocol Lactulose (Lactulose*) 30 ml PO Q6H PRN Reason: constipation Levothyroxine Sodium (Synthroid Tab*) 150 mcg PO 0600 ADRIAN Magnesium Hydroxide (Milk Of Magnesia Liq*) 30 ml PO Q6H PRN Reason: constipation Morphine Sulfate (Morphine Inj (Syringe)*) 2 mg IV Q2H PRN Reason: PAIN Ondansetron HCl (Zofran Inj*) 4 mg IV Q6H PRN Reason: nausea Ondansetron HCl (Zofran Tab*) 4 mg PO Q6H PRN Reason: NAUSEA Oseltamivir Phosphate (Tamiflu Cap*) 30 mg PO DAILY ADRIAN Stop: 11/30/17 09:30 Oxycodone HCl (Roxycodone Tab*) 10 mg PO Q4H PRN Reason: PAIN Oxycodone/Acetaminophen (Percocet 5/325 Tab*) 2 tab PO Q4H PRN Reason: PAIN Oxycodone/Acetaminophen (Percocet 5/325 Tab*) 1 tab PO Q4H PRN Reason: PAIN Polyethylene Glycol/Electrolytes (Miralax*) 17 gm PO DAILY PRN Reason: Constipation Prednisone (Deltasone Tab*) 2 mg PO QAM ADRIAN Temazepam (Restoril Cap*) 15 mg PO BEDTIME PRN Reason: INSOMNIA Vital Signs - 8 hr 11/23/17 11/23/17 11/23/17 07:29 09:28 10:30 Temperature 96.8 F Pulse Rate 63 Respiratory 18 16 16 Rate Blood Pressure 142/66 (mmHg) O2 Sat by Pulse 99 Oximetry 11/23/17 11/23/17 11/23/17 11:30 13:15 13:54 Temperature Pulse Rate Respiratory 18 16 18 Rate Blood Pressure (mmHg) O2 Sat by Pulse Oximetry Oxygen Devices in Use Now: None, CPAP Appearance: NAD, sitting up in a chair Ears/Nose/Mouth/Throat: Mucous Membranes Moist Respiratory: Symmetrical Chest Expansion and Respiratory Effort, Clear to Auscultation Cardiovascular: NL Sounds; No Murmurs; No JVD, RRR Abdominal: NL Sounds; No Tenderness; No Distention Extremities: No Edema Skin: - - Dressing to right shoulder clean, dry and intact Neurological: Alert and Oriented x 3, NL Muscle Strength and Tone Lines/Tubes/Other Access: Clean, Dry and Intact Peripheral IV - site benign Nutrition: Taking PO's Result Diagrams: 11/23/17 05:02 11/22/17 07:21 Microbiology and Other Data: Microbiology 11/21/17 13:43 Wound Gram Stain - Final Tissue - Shoulder Right Tissue Culture - Preliminary No Growth Day 1 11/21/17 13:43 Gram Stain - Final Shoulder Right Wound Culture - Preliminary No Growth Day 1 11/21/17 13:43 Anaerobic Culture - Preliminary Misc Source (See Comment) - Shoulder Right No Growth Day 1 Assess/Plan/Problems-Billing Assessment: Mr. Escobar is a 76 yo male with PMH significant for DM, depression, HTN, neuropathy, pituitary tumor, PTSD, PVD, arthritis, GOUT, prostate CA, hypothyroidism, autoimmune hepatitis with cirrhosis, thyrombocytopenia, and Guillaian [place] who presented to the hospital for an elective right total shoulder revision with Dr. Huston. - Patient Problems (1) S/p reverse total shoulder arthroplasty Code(s): Z96.619 - PRESENCE OF UNSPECIFIED ARTIFICIAL SHOULDER JOINT SNOMED Code(s): 413800442 Comment: - S/P revision, POD #2 - Management per Ortho - PT/OT, pain management (2) Type 2 diabetes mellitus Comment: - Glucose 140-170's - Continue Lispro SS (3) Exposure to influenza Code(s): Z20.828 - CONTACT W AND EXPOSURE TO OTH VIRAL COMMUNICABLE DISEASES SNOMED Code(s): 428182280 Comment: - Continue Tamiflu (decrease to 30 md daily d/t decreased crcl) through 11/30 (4) Depression Code(s): F32.9 - MAJOR DEPRESSIVE DISORDER, SINGLE EPISODE, UNSPECIFIED SNOMED Code(s): 41133510 Comment: - With PTSD - Continue home medications (5) HTN (hypertension) Code(s): I10 - ESSENTIAL (PRIMARY) HYPERTENSION SNOMED Code(s): 76916549 Comment: - Normotensive - Continue to follow (6) CKD (chronic kidney disease) Code(s): N18.9 - CHRONIC KIDNEY DISEASE, UNSPECIFIED SNOMED Code(s): 985534933 Comment: - Stage 3. Suspect he is at his baseline. - Continue to monitor. (7) GERD (gastroesophageal reflux disease) Code(s): K21.9 - GASTRO-ESOPHAGEAL REFLUX DISEASE WITHOUT ESOPHAGITIS SNOMED Code(s): 758738466 Comment: - Continue famotidine. (8) Gout Code(s): M10.9 - GOUT, UNSPECIFIED SNOMED Code(s): 95083650 Comment: - Continue allopurinol. 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 (13) Thrombocytopenia Code(s): D69.6 - THROMBOCYTOPENIA, UNSPECIFIED SNOMED Code(s): 442820587 Comment: - Stable (14) DVT prophylaxis Code(s): LBR6780 - SNOMED Code(s): 634852594 Comment: - Lovenox and SCDs per Ortho (15) Full code status Code(s): Z78.9 - OTHER SPECIFIED HEALTH STATUS SNOMED Code(s): 528372583 Status and Disposition: Inpatient. Discharge per Orthopedics when medically stable, likely in the AM to [facility]. Thank you for this consultation.
[2017-11-23] MEDS: Gabapentin CAP(*) 300 MG PO SCH (20:20)
[2017-11-23] MEDS: guaiFENesin ER TAB 600 MG PO PRN (21:41)
--- NOTE | 2017-11-24 04:26 | OP ---
CC: PCP, Jose Burgos MD * DATE OF OPERATION: 11/21/17 - ROOM #332 DATE OF : 38 SURGEON: Anabella Huston MD TUBE BENDING MACHINE OPERATOR: YARELIS Lee and Juana Santos. An assistant manager pt was needed for the entirety of the case due to positioning, retraction, and was utilized through all portions of the case. ANESTHESIOLOGIST: Dr. Powell. ANESTHESIA: General and interscalene block. PRE-OP DIAGNOSIS: Right shoulder acute dislocation of his reverse arthroplasty. POST-OP DIAGNOSIS: Right shoulder acute dislocation of his reverse arthroplasty. OPERATIVE PROCEDURE: Right shoulder open reduction with revision of the reversed implants. COMPLICATIONS: None. ESTIMATED BLOOD LOSS: 200. IMPLANTS USED: HEREDIA prosthesis, SMR glenosphere diameter 40 Small-R, SMR finned stem diameter of 24, extension for humeral reverse body x2, standard reverse tray and size standard reversed liner with a diameter of 40 mm. OUTPUT: Drain x1. DISPOSITION: Stable. INDICATIONS: Chris Bae is a 76-year-old male who underwent reverse shoulder arthroplasty on 11/05/17. The postoperative x-rays demonstrated that the prosthesis was in satisfactory alignment. He is morbidly obese, has multiple medical problems and required transition to the intermediate facility. Per report, he did have several episodes where he slid out of the bed and he needed to be boosted back up. He used a Sho lift and at some point between postop day 0 and postop day 13, he dislocated his shoulder. He was not having any increased pain but x-rays confirmed at his postop visit on Friday that he had dislocated. I explained to the family that this can be treated closed but I was inclined to open and potentially revise components. Risks and benefits of surgery were discussed at length included but not limited to bleeding, infection , damage to nerves, vessels, surrounding structures, wound nonhealing, persistent pain, need for further surgery, incomplete relief of symptoms, chronic dislocation, fracture; risks of anesthesia, loss of motion, risk of DVT , he and his family had understood the risks and benefits and elected to proceed with revision surgery. DESCRIPTION OF PROCEDURE: The patient was greeted in the preoperative area by the attending surgeon. Correct extremity was marked and consent was confirmed. The patient underwent interscalene nerve block by the anesthesiologist after which he was brought back to the operating suite where he was placed in a lazy beach chair position. He was secured with multiple straps as he is morbidly obese. Once he was adequately positioned and intubated, while the patient was paralyzed an attempt at a surgical pause was done and attempt at a closed reduction was done. Unfortunately this was not able to be reduced and decision was made to open, which was part of plan to begin with. The right shoulder was then prepped and draped in usual sterile fashion beginning with chlorhexidine soap, scrub and alcohol wipe and a final prep with ChloraPrep. After appropriate surgical pause indicating side, site, procedure and administration of antibiotics, the previous delto-pectoral incision was made sharply with 15-blade and soft tissues were carefully dissected to expose the deltopectoral groove. There was evidence of healing of scar tissue but previously left Ethibond suture were used as landmarks to find the deltopectoral groove. A Kolbel placed and the abundant blood clot was carefully removed. The prosthesis was found to have been dislocated which may have happened during breaking. At this point, the shoulder was taken through range of motion. He was found to have, at the very extremes of posterior extension and external and internal rotation, there was some loosening evident. The decision was made to try to revise this to see if we could get a tighter fit. The shoulder was gently dislocated and the humeral head was brought through the wound. An osteotome was then used to try to disengage the poly from the stem. This actually allowed for the whole stem to shift which is not unexpected as this is barely 2 weeks out from surgery. Once this was taken out , a provisional trial stem was placed just for protection and the attention was directed to the glenoid. The glenoid was exposed, the humeral head was placed back into the wound with gentle retractors placed. The glenoid was unscrewed. The finner pad was unscrewed and then it was gently disengaged. A size 40 was chosen to be placed to allow for more lateralization and more larger fit. Once this was impacted in position and secured using a stud screw, attention was directed to the humeral head, was brought back through the wound. The humerus was already the second largest diameter but a size 24 was trialed to see if it can be closely impacted and it was fairly close. Therefore we upsized the stem to a size a 24 mm stem. The trial stem and reverse body and polys were then placed and then the shoulder was gently reduced. The poly and the extensions were stacked on until very tight fit was identified due to the patient's body habitus and his comorbidities with concern that he may not be able to be reliably compliant with postoperative restriction. Once the appropriate fit was identified, which allowed for improved range of motion with forward flexion to about 140, external rotation to about 45 and abduction to about 90 with appropriate amount of shuck and difficulty to dislocate and relocate. The final implants were chosen which are listed as above. These were impacted into position. Shoulder was then carefully reduced and this allowed for again the same amount of range of motion. The wounds were copiously irrigated with sterile saline. Please note that prior to the removal of the hardware, tissue samples as well as Gram stain cultures were sent to make sure that there was no evidence of infection. The stat Gram stain came back negative. The shoulder was relocated. The wound was copiously irrigated with sterile saline. An intraarticular drain was placed. The deltopectoral fascia was closed with #2 Ethibond sutures. The would was irrigated again and the subcutaneous tissues were closed with 2-0 Vicryl and the skin with 3-0 Monocryl. Sterile dressings were applied. Cryo/cuff and a sling with a swathe was then applied. He was awoken from anesthesia and transferred to PACU in stable condition. POSTOPERATIVE PLAN: He will undergo x-rays in the PACU, which were reviewed and found to be stable. He will be on 24 hours postoperative antibiotics. He will be admitted to the floor until it is determined whether he should go back to intermediate facility versus he can be discharged to his home. DVT prophylaxis will be Lovenox or heparin while he is inhouse. The drain will be discharged on postop day 1. We will follow the patient relatively closely for the first few weeks to make sure there is no evidence of dislocation. [id number]/[facility] #: [id number] [facility]BLE HOSPITALRadha
[2017-11-24 06:03] LABS: Hematocrit 23 % (42-52); Hemoglobin 7.7 g/dl (14.0-18.0); Mean Platelet Volume 7 um3 (7.4-10.4); Platelet Count 97 10^3/ul (150-450)
[2017-11-24] MEDS: Levothyroxine TAB* 150 MCG TAB PO SCH (06:32)
--- NOTE | 2017-11-24 08:45 | PN ---
Subjective Date of Service: 11/24/17 Interval History: Patient seen and examined at bedside. Denies fever, chills, shortness of breath , chest discomfort, N/V/D. Pt states that he has not moved his bowels in 4 days , denies ABD pain. Pt continues to have congestion, but feels this is improved with mucinex. Family History: Unchanged from Admission Social History: Unchanged from Admission Past Medical History: Unchanged from Admission Objective Active Medications: Acetaminophen (Tylenol Tab*) 650 mg PO Q4H PRN Reason: PAIN OR TEMPERATURE Allopurinol (Zyloprim Tab*) 300 mg PO 0900 ADRIAN Bisacodyl (Dulcolax Supp*) 10 mg LA DAILY PRN Reason: constipation Calcium Carbonate (Tums*) 500 mg PO BID PRN Reason: HEARTBURN Cyclobenzaprine HCl (Flexeril Tab*) 10 mg PO TID PRN Reason: SPASMS Dextrose (D50w Syringe 50 Ml*) 12.5 gm IV PUSH .FOR FS < 60 - SS PRN Reason: FS < 60 Diphenhydramine HCl (Benadryl Iv*) 25 mg IV Q6H PRN Reason: itching Diphenhydramine HCl (Benadryl Po*) 25 mg PO Q6H PRN Reason: itching Docusate Sodium (Colace Cap*) 200 mg PO QAM ADRIAN Enoxaparin Sodium (Lovenox(*)) 40 mg SUBCUT Q24H ADRIAN Famotidine (Pepcid Tab*) 20 mg PO QAM ADRIAN Fluoxetine HCl (Prozac Cap*) 40 mg PO QAM ADRIAN Gabapentin (Neurontin Cap(*)) 1,200 mg PO 2100 ADRIAN Guaifenesin (Mucinex*) 600 mg PO BID PRN Reason: COUGH Lactated Ringer's (Lactated Ringers 1000 Ml Bag*) 1,000 mls @ 100 mls/hr IV PER RATE ADRIAN Insulin Human Lispro (Humalog*) 0 units SUBCUT AC ADRIAN Lactulose (Lactulose*) 30 ml PO Q6H PRN Reason: constipation Levothyroxine Sodium (Synthroid Tab*) 150 mcg PO 0600 ADRIAN Magnesium Hydroxide (Milk Of Magnesia Liq*) 30 ml PO Q6H PRN Reason: constipation Morphine Sulfate (Morphine Inj (Syringe)*) 2 mg IV Q2H PRN Reason: PAIN Ondansetron HCl (Zofran Inj*) 4 mg IV Q6H PRN Reason: nausea Ondansetron HCl (Zofran Tab*) 4 mg PO Q6H PRN Reason: NAUSEA Oseltamivir Phosphate (Tamiflu Cap*) 30 mg PO DAILY ADRIAN Stop: 11/30/17 09:30 Oxycodone HCl (Roxycodone Tab*) 10 mg PO Q4H PRN Reason: PAIN Oxycodone/Acetaminophen (Percocet 5/325 Tab*) 2 tab PO Q4H PRN Reason: PAIN Oxycodone/Acetaminophen (Percocet 5/325 Tab*) 1 tab PO Q4H PRN Reason: PAIN Polyethylene Glycol/Electrolytes (Miralax*) 17 gm PO DAILY PRN Reason: Constipation Prednisone (Deltasone Tab*) 2 mg PO QAM ADRIAN Temazepam (Restoril Cap*) 15 mg PO BEDTIME PRN Reason: INSOMNIA Vital Signs - 8 hr 11/24/17 11/24/17 01:48 03:23 Temperature 97.6 F Pulse Rate 60 Respiratory 18 Rate Blood Pressure 130/61 (mmHg) O2 Sat by Pulse 97 99 Oximetry Oxygen Devices in Use Now: None, BiPAP Appearance: NAD, sitting up in bed Ears/Nose/Mouth/Throat: Mucous Membranes Moist Respiratory: Symmetrical Chest Expansion and Respiratory Effort, Clear to Auscultation Cardiovascular: NL Sounds; No Murmurs; No JVD, RRR Abdominal: NL Sounds; No Tenderness; No Distention Extremities: No Edema Skin: No Rash or Ulcers, - - Dressing to right shoulder clean, dry and intact Neurological: Alert and Oriented x 3, NL Muscle Strength and Tone Lines/Tubes/Other Access: Clean, Dry and Intact Peripheral IV - site benign Nutrition: Taking PO's Result Diagrams: 11/24/17 05:25 11/22/17 07:21 Microbiology and Other Data: Microbiology 11/21/17 13:43 Wound Gram Stain - Final Tissue - Shoulder Right Tissue Culture - Preliminary No Growth Day 1 11/21/17 13:43 Gram Stain - Final Shoulder Right Wound Culture - Preliminary No Growth Day 1 11/21/17 13:43 Anaerobic Culture - Preliminary Misc Source (See Comment) - Shoulder Right No Growth Day 1 Assess/Plan/Problems-Billing Assessment: Mr. Escobar is a 76 yo male with PMH significant for DM, depression, HTN, neuropathy, pituitary tumor, PTSD, PVD, arthritis, GOUT, prostate CA, hypothyroidism, autoimmune hepatitis with cirrhosis, thyrombocytopenia, and Guilla[place] who presented to the hospital for an elective right total shoulder revision with Dr. Huston. - Patient Problems (1) S/p reverse total shoulder arthroplasty Code(s): Z96.619 - PRESENCE OF UNSPECIFIED ARTIFICIAL SHOULDER JOINT SNOMED Code(s): 656164207 Comment: - S/P revision, POD #3 - Management per Ortho - PT/OT, pain management (2) Type 2 diabetes mellitus Comment: - Glucose 140-200's - Continue Lispro SS (3) Exposure to influenza Code(s): Z20.828 - CONTACT W AND EXPOSURE TO OTH VIRAL COMMUNICABLE DISEASES SNOMED Code(s): 675846449 Comment: - Continue Tamiflu (decrease to 30 md daily d/t decreased crcl) through 11/30 (4) Depression Code(s): F32.9 - MAJOR DEPRESSIVE DISORDER, SINGLE EPISODE, UNSPECIFIED SNOMED Code(s): 70882647 Comment: - With PTSD - Continue home medications (5) HTN (hypertension) Code(s): I10 - ESSENTIAL (PRIMARY) HYPERTENSION SNOMED Code(s): 22501643 Comment: - Normotensive - Continue to follow (6) CKD (chronic kidney disease) Code(s): N18.9 - CHRONIC KIDNEY DISEASE, UNSPECIFIED SNOMED Code(s): 091261182 Comment: - Stage 3. Suspect he is at his baseline. - Continue to monitor. (7) GERD (gastroesophageal reflux disease) Code(s): K21.9 - GASTRO-ESOPHAGEAL REFLUX DISEASE WITHOUT ESOPHAGITIS SNOMED Code(s): 084590474 Comment: - Continue famotidine. (8) Gout Code(s): M10.9 - GOUT, UNSPECIFIED SNOMED Code(s): 51229613 Comment: - Continue allopurinol. 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 (13) Thrombocytopenia Code(s): D69.6 - THROMBOCYTOPENIA, UNSPECIFIED SNOMED Code(s): 530250821 Comment: - Stable (14) DVT prophylaxis Code(s): EGP5246 - SNOMED Code(s): 115380169 Comment: - Lovenox and SCDs per Ortho (15) Full code status Code(s): Z78.9 - OTHER SPECIFIED HEALTH STATUS SNOMED Code(s): 601890092 Status and Disposition: Inpatient. Discharge per Orthopedics when medically stable, Plan for discharge to [facility] today. Thank you for this consultation.
[2017-11-24 08:46] VITALS: BP 119/59
[2017-11-24] MEDS ORDERED: Oseltamivir CAP* 30 MG CAP PO SCH (09:00)
[2017-11-24] MEDS: Allopurinol TAB* 300 MG PO SCH (09:04)
[2017-11-24] MEDS: Docusate CAP* 100 MG PO SCH (09:04)
[2017-11-24] MEDS: predniSONE TAB* 1 MG PO SCH (09:04)
[2017-11-24] MEDS: oxyCODONE/Acetamin 5/325 MG* TAB PO PRN (09:04)
[2017-11-24] MEDS: FLUoxetine CAP* 20 MG PO SCH (09:04)
[2017-11-24] MEDS: Famotidine TAB* 20 MG PO SCH (09:05)
[2017-11-24] MEDS: Insulin LISPRO* 1 UNITS UNIT SUBCUT SCH (09:05)
--- NOTE | 2017-11-24 09:05 | PN ---
Progress Note - Progress Note Date of Service: 11/24/17 SOAP: Subjective: []Patient seen at bedside. He feels well without dizziness, fatigue, SOB, CP, nausea, fever or chills. Objective: [] Vital Signs Temp 97.2 F 11/24/17 07:43 Pulse 69 11/24/17 07:43 Resp 16 11/24/17 08:40 BP 119/59 11/24/17 07:43 Pulse Ox 96 11/24/17 07:43 Intake & Output 11/23/17 11/24/17 11/24/17 18:59 06:59 18:59 Intake Total 1750 700 Output Total 775 800 Balance 975 -100 Intake: Oral 1750 700 Output: Urine 775 800 Other: # Bowel Movements 0 Laboratory Last Values WBC 4.6 10^3/ul (3.5-10.8) 11/22/17 07:21 RBC 2.73 10^6/ul (4.0-5.4) L 11/22/17 07:21 Hgb 7.7 g/dl (14.0-18.0) L 11/24/17 05:25 Hct 23 % (42-52) L 11/24/17 05:25 MCV 89 fL (80-94) 11/22/17 07:21 MCH 31 pg (27-31) 11/22/17 07:21 MCHC 34 g/dl (31-36) 11/22/17 07:21 RDW 16 % (10.5-15) H 11/22/17 07:21 Plt Count 97 10^3/ul (150-450) L 11/24/17 05:25 MPV 7 um3 (7.4-10.4) L 11/24/17 05:25 Neut % (Auto) 87.8 % (38-83) H 11/22/17 07:21 Lymph % (Auto) 6.6 % (25-47) L 11/22/17 07:21 [place] % (Auto) 5.3 % (1-9) 11/22/17 07:21 Eos % (Auto) 0.1 % (0-6) 11/22/17 07:21 Baso % (Auto) 0.2 % (0-2) 11/22/17 07:21 Absolute Neuts (auto) 4.0 10^3/ul (1.5-7.7) 11/22/17 07:21 Absolute Lymphs (auto) 0.3 10^3/ul (1.0-4.8) L 11/22/17 07:21 Absolute Monos (auto) 0.2 10^3/ul (0-0.8) 11/22/17 07:21 Absolute Eos (auto) 0 10^3/ul (0-0.6) 11/22/17 07:21 Absolute Basos (auto) 0 10^3/ul (0-0.2) 11/22/17 07:21 Absolute Nucleated RBC 0 10^3/ul 11/22/17 07:21 Nucleated RBC % 0.2 11/22/17 07:21 ESR 64 mm/Hr (0-40) H 11/21/17 10:15 Sodium 133 mmol/L (133-145) 11/22/17 07:21 Potassium 4.5 mmol/L (3.5-5.0) 11/22/17 07:21 Chloride 103 mmol/L (101-111) 11/22/17 07:21 Carbon Dioxide 22 mmol/L (22-32) 11/22/17 07:21 Anion Gap 8 mmol/L (2-11) 11/22/17 07:21 BUN 24 mg/dL (6-24) 11/22/17 07:21 Creatinine 1.43 mg/dL (0.67-1.17) H 11/22/17 07:21 Est GFR ( Amer) 61.7 (>60) 11/22/17 07:21 Est GFR (Non-Af Amer) 48.0 (>60) 11/22/17 07:21 BUN/Creatinine Ratio 16.8 (8-20) 11/22/17 07:21 Glucose 186 mg/dL (70-100) H 11/22/17 07:21 POC Glucose (mg/dL) 135 mg/dL (70-100) H 11/24/17 08:35 Calcium 8.5 mg/dL (8.6-10.3) L 11/22/17 07:21 C-Reactive Protein 23.12 mg/L (< 5.00) H 11/21/17 10:15 Gen: Calm and cooperative, NAD RUE: Dressing C/D/I, incision C/D/I with no erythema or discharge. +f/e at wrist , MCP, PIP and DIPs. N/V intact distally. Assessment: POD #3 Right shoulder open reduction, poly exchange Plan: - Passive ROM right shoulder with PT, active elbow, wrist and hand - Cont Percocet for pain with cryotherapy - Dressing changed today. Continue daily dry sterile dressing change - D/C planned to SNF at [facility], bed being held. Plan to transfer today. - H&H low, patient asymptomatic. Will have H&H checked at rehab. Patient educated on symptoms of anemia and knows to report any symptoms
[2017-11-24] MEDS: guaiFENesin ER TAB 600 MG PO PRN (09:08)
--- NOTE | 2017-11-24 10:40 | DS ---
cc: Aidan Simon* DATE OF ADMISSION: 11/21/2017. DATE OF DISCHARGE: 11/24/2017. DATE OF OPERATION: 11/21/2017. ATTENDING SURGEON: Dr. Anabella Huston* (dictated by YARELIS Gaviria). POTATO PEELING MACHINE OPERATOR: YARELIS Lee. PRIMARY CARE PHYSICIAN: Dr. Jose Burgos. PREOPERATIVE DIAGNOSIS: Right shoulder acute dislocation of reverse arthroplasty. OPERATIVE PROCEDURE: Right shoulder open reduction with revision of the reversed implant. HISTORY: Mr. Bae is a 76-year-old male who underwent a reverse total shoulder arthroplasty on 11/05/2017. The postoperative x-rays demonstrate the prosthesis was in satisfactory alignment. He is morbidly obese, has multiple medical problems, and required a transition to the retirement facility. Per report, he did have several episodes were he slid out of bed and needed to be boosted back up. He used a Sho lift and at some point between postop day 0 and postop day 13 he dislocated his shoulder. He is not having any increased pain, but x-rays confirmed at his postop visit on Friday that he had dislocated. HOSPITAL COURSE: The patient underwent a right shoulder open reduction with revision of the implant on 11/21/2017 at [facility] by Dr. Huston without complication. He was brought to the PACU in stable condition and then he was transferred to the short Stay floor again in stable condition. On postop day one, dressing was clean, dry and intact. Hemovac was with no active output. Hemovac was pulled without complication, with tip intact. Flexion and extension of the wrist, MCP, PIP and DIP were intact. Neurovascularly intact. He was also followed by the Hospitalist Service for his medical comorbidities, including type 2 diabetes, exposure to influenza, depression, hypertension, chronic kidney disease, GERD, gout, hypothyroidism, neuropathy, nonalcoholic cirrhosis, DOMINGO on CPAP, thrombocytopenia. Postop day two, dressing and incision were clean, dry and intact without erythema or warmth. Flexion and extension at wrist, MCP, PIP and DIP were intact. Patient was neurovascularly intact. Postop day three, the patient was calm, cooperative and in no acute distress. Again, dressing was changed. Incision was clean, dry, and intact without erythema or discharge. Flexion and extension of the wrist, MCP, PIP, and DIP were intact. Neurovascularly intact. Vitals on the day of discharge: Temperature 97.2, pulse 69, respiratory rate 20 , oxygen saturation 96, blood pressure 119/59. LABORATORY DATA: Hemoglobin 7.7, hematocrit 23, glucose 135. Patient denied any shortness of breath, fatigue, lightheadedness or dizziness. The patient was deemed to medically and orthopedically stable for discharge. DISCHARGE INSTRUCTIONS: Wound care: Keep dressing in place until postop day four, November 25. Okay to shower after 11/25/2017. No bathing, swimming, submerging wound. Use gentle soap, pat dry, and cover with gauze, Yosef, or tape. Call Orthopedic office for increased drainage, redness, increased pain or fever. Go to the emergency room with chest pain or shortness of breath. The patient is nonweightbearing of the right upper extremity. No active range of motion. No passive range of motion of the right upper shoulder at this time. Continue wrist, elbow and hand pendulums as shown by Physical Therapy. Call the office with any concerns at . Percocet for pain control 5 /325 one to two tabs by mouth every four to six hours, maximum of eight per day. The patient is to keep his elbow in front of his body so that he can visualize it. He is to keep a pillow behind the RUE while he is lying in bed. MEDICATIONS: 1. Victoza 18 mg/ 3ml take 1.2 units subcu q.a.m. 2. Amlodipine 10 mg p.o. q.a.m. 3. Levothyroxine 150 mcg p.o. q.a.m. 4. Gabapentin 12,000 mg p.o. q.p.m. 5. Allopurinol 300 mg p.o. q.p.m. 6. Docusate 200 mg p.o. q.p.m. 7. Prednisone 2 mg p.o. q.a.m. 8. Fluoxetine 40 mg p.o. q.a.m. 9. Acetaminophen 650 mg p.o. q.4 hours prn, not to exceed 4,000 mg per day from all sources. 10. Calcium Carbonate 500 mg p.o. b.i.d. prn. 11. Temazepam 15 mg p.o. at bedtime prn. 12. Pepcid 20 mg p.o. q.a.m. 13. Glipizide 5 mg p.o. b.i.d. 14. Oseltamivir 30 mg daily for a total of 7 more days. The patient has already had 3 days. 15. Oxycodone/acetaminophen 5/325 mg one to two tabs p.o. q.4 hours prn, max daily dose of 8. The patient is to be discharge to [facility] today. Dr. Huston is aware. Please check a CBC in two days due to acute bloodloss anemia and hx thrombocytopenia. Monitor patient for symptoms of any shortness of breath, fatigue, or dizziness. F/U with Dr Huston 12/02/17 YARELIS MAYA [id number]/[facility] #: [id number] [facility]
== END 2017-11-24 11:45 | DRG 483 ==
LOC: AA 09:15 → SSU 17:33
PROVIDERS: ADMIT Orthopaedic Surgery; ATTEND Orthopaedic Surgery
PROC: 0RPJ0JZ Removal of Synthetic Substitute from Right Shoulder Joint, Open Approach (ICD-10-PCS; 2017-11-21)
PROC: 0RRJ0JZ Replacement of Right Shoulder Joint with Synthetic Substitute, Open Approach (ICD-10-PCS; principal; 2017-11-21 11:00)
DX: T84.028A Dislocation of other internal joint prosthesis, initial encounter (principal); G61.0 Guillain-Barre syndrome; D69.6 Thrombocytopenia, unspecified; E11.22 Type 2 diabetes mellitus with diabetic chronic kidney disease; E11.51 Type 2 diabetes mellitus with diabetic peripheral angiopathy without gangrene; E66.01 Morbid (severe) obesity due to excess calories; K75.4 Autoimmune hepatitis; D49.7 Neoplasm of unspecified behavior of endocrine glands and other parts of nervous system; Z68.43 Body mass index [BMI] 50.0-59.9, adult; W06.XXXA Fall from bed, initial encounter; Y92.122 Bedroom in nursing home as the place of occurrence of the external cause; I12.9 Hypertensive chronic kidney disease with stage 1 through stage 4 chronic kidney disease, or unspecified chronic kidney disease; N18.9 Chronic kidney disease, unspecified; Z96.642 Presence of left artificial hip joint; F32.9 Major depressive disorder, single episode, unspecified; K21.9 Gastro-esophageal reflux disease without esophagitis; M10.9 Gout, unspecified; E03.9 Hypothyroidism, unspecified; K74.69 Other cirrhosis of liver; G47.33 Obstructive sleep apnea (adult) (pediatric); Z20.828 Contact with and (suspected) exposure to other viral communicable diseases; F43.10 Post-traumatic stress disorder, unspecified; Z79.84 Long term (current) use of oral hypoglycemic drugs; Z79.899 Other long term (current) drug therapy; Z79.891 Long term (current) use of opiate analgesic; Z79.52 Long term (current) use of systemic steroids; Z85.46 Personal history of malignant neoplasm of prostate; Z88.7 Allergy status to serum and vaccine
CPT/HCPCS: 36415; 80048; 85014; 85018; 85025; 85049; 85652; 86140; 87070; 87073; 87205; 88300; A9270-GY; C1776; J0330; J0690; J1100; J1170; J1650; J1885; J2250; J2270; J2405; J2704; J2795; J3010; J7614

== ENCOUNTER 2018-04-02 08:25 | Emergency (ER) | payer BC, MEDICARE ==
[2018-04-02 08:39] VITALS: BP 127/80
--- OUTSIDE RECORDS SUMMARY | 2018-04-02 08:55 | XMS REPORT ---
:1940 External Reference #:[id number] Author Organization [facility] Address [address] [address] Phone [phone] Care Team Providers Name Role Phone Jose Burgos MD Primary Care Physician Unavailable Payers Type Date Identification Numbers Payment Provider Subscriber Medicare Primary Effective: Policy Number: Medicare Chris Carlos 2004 [id number] PayID: [id number] [address] [place] [address] Medigap Part B Policy Number: [id number] [facility] [place] Carlos PayID: [id number] [address] [address] [place] [address] Problems Date Description Provider Status Onset: 01/27/2017 [...] Anabella Huston MD Active the shoulder region Onset: 11/18/2017 Closed anterior dislocation of Anabella Huston MD Active humerus Family History Date Family Member(s) Problem(s) Comments [...] Tetanus Toxoid Adsorbed active pt had Guillain Carmen 10/14/2017 Tapentadol Hydrochloride active itching 10/14/2017 Seasonal active Medications Medication Date Status Form Strength Qnty SIG Indications Ordering Provider Ranitidine HCL 03/25 Active Capsules 150mg 60cap take one Rudy S. /2017 s capsule by carlos Lezama M.D. twice a day Bariatric Donell 12/04 Active 1unit Disp 1 T84.028A Anabella Walker /2017 s bariatric Yaseen, donell walker Bariatric Transport 12/04 Active 1unit disp 1 T84.028A Zajordyb Chair /2017 s bariatric Yaseen, transport chair Bariatric Commode 12/04 Active 1unit Disp 1 T84.028A Zaneb /2017 s bariatric Betzaida, neymar KNIGHT Slyaritza And Swathe 11/19 Active Misc S43.014A Anabella Shoulderimmobilizer /2017 MD Betzaida M19.011 Blood Pressure 08/31/2009 Active Kit with extra Jude E. Monitor Kit large cuff Carlos Raza Dx Hypertension Onetouch Ultrasoft 12/14/2007 Active Misc 150 use qd or as Jude Frances. Lancets uni directed Carlos Raza ts dx250.00 Glucometer 11/25/2007 Active 1un use qd to bid Jude E. its as needed, Carlos Raza Dx 250.02 One Touch Ultra 11/25/2007 Active Test Strips 300 use with Jude Frances. Test Strips uni glucometer tid Carlos Raza ts or prn Allopurinol Active Tablets 300 90t 1 po qd Jude E. mg abs Carlos Raza Amlodipine Active Tablets 10m 1/2 tab by Unknown Besylate g mouth every day Fluoxetine HCL Active Capsules 20m 2 by mouth Unknown g every day Prednisone Active Tablets 1mg 2 by mouth Unknown every day Stool Softener Active Capsules 100 take 1 tab by Unknown mg mouh as needed Heparin Sodium Active Solution 500 bid Unknown (Porcine) 0Un it/ ML Oxycodone HCL Active Tablets 10m one tab every Unknown g four hours prn Acetaminophen Active Tablets 325 2 tablets by Unknown mg mouth every 6 hours as needed for pain/fever Gabapentin Active Tablets 300 take 4 capsules Unknown mg at bedtime.. Temazepam Active Capsules 15m one capsule prn Unknown g Victoza Active Solution 18m inject 1.2 mg Unknown Pen-Inject g/3 daily ML Famotidine Active Tablets 20m 1 by mouth Unknown g every day as needed for heartburn Tamiflu Active Capsules 75m 1 by mouth Unknown g twice a day x 5 days Mucinex Active prn Unknown Clobetasol Active Cream 0.0 As directed Unknown Propionate 5% Vitamin B-12 Active Tablets 250 1 by mouth Unknown mcg every day Bnuhwuh47/Hypromel Active As directed, Unknown lose eye gtts Enalapril Maleate Active Tablets 10m 1 by mouth Unknown g every day Lactulose Active Solution 10G 30 milliliters Unknown M/1 daily 5ML Synthroid Active Tablets 150 Alkol, mcg MD Jose Melatonin Active Capsules 3mg 1 tab by mouth Unknown every night at bedtime Multi Vitamin Active Tablets 1 by mouth Unknown every day Ultracet 08/28/2017 - Hx Tablets 37. 30t 1 by mouth Carlo 11/02/2017 5-3 abs q4-6hr as MD Miley 25m needed pain g Fish Oil 01/27/2017 - Hx Capsules 120 1 by mouth Jude Frey 11/03/2017 0mg twice daily Carlos Raza Amoxicillin 01/08/2017 - Hx Capsules 500 16c 4 tablets 1 Z96 Kentrell Benson , 01/26/2017 mg aps hour before .64 M.D. dental work 2 Lovenox 11/11/2016 - Hx Solution 30m 18u 30mg SC daily Kentrell Benson, 01/07/2017 g/0 nit ending M.D. .3M s 11/29/2016 L Restasis 08/09/2009 - Hx Emulsion 0.0 3mo one gtts ou bid Other 11/19/2016 5% nt Physician s Practices Synthroid 08/09/2009 - Hx Tablets 125 1 po qd 244 Unknown 03/02/2014 mcg .9 Potassium 08/09/2009 - Hx Tablets 99m 1 po qd Jude E. 11/20/2016 g Carlos Raza Fish Oil 08/09/2009 - Hx Capsules 100 1 po qd Jude E. 01/27/2017 0mg Carlos Raza Glucosamine-Chondr 08/09/2009 - Hx Capsules 750 2 po qd Jude E. oitin 11/19/2016 /60 Carlos aRza 0 mg. Vitamin C 08/09/2009 - Hx Tablets 100 1 po qd Jude E. 11/19/2016 0mg Carlos Raza Testosterone 08/09/2009 - Hx Oil 200 250 HG q 2 Other Enanthate 11/19/2016 mg/ weeks Physician ml Practices Cialis 07/18/2009 - Hx Tablets 20m 20t use as directed Jude ESharron 07/18/2009 g abs (1PO qd prn) Carlos Raza Glyburide 02/07/2009 - Hx Tablets 1.2 180 1 po bid Jude ESharron 11/19/2016 5mg tab Carlos Raza s Omeprazole 05/03/2008 - Hx Capsules DR 20m 90c 1 PO qd Lemberg, 02/07/2009 g clara Waddell MD Micronase 02/02/2008 - Hx Tablets 1.2 90t 1 po qd Jude E. 02/07/2009 5mg abs Carlos Raza Micronase 12/14/2007 - Hx Tablets 5mg 30t 1/2 po q am Jude Daniels. 02/02/2008 abs Carlos Raza Micronase 11/25/2007 - Hx Tablets 5mg 180 1 po qd x 1 Jude E. 12/14/2007 tab week , then Carlos Raza s increase to bid Prandin 11/13/2007 - Hx Tablets 1mg 90t 1 po tid with Jude Frey 11/25/2007 abs meals Carlos Raza Cardizem CD - Hx Caps ER 240 90c 1 po qd Jude Frey 03/02/2014 24HR mg aps Carlos Raza Vaseretic - Hx Tablets 10- 90t 1 po qd Jude Shante 11/19/2016 25m abs Carlos Raza g Synthroid - Hx Tablets 100 90t 1 po qam 244 John Faith, 08/09/2009 mcg abs .9 Multi-Day Vitamins - Hx Tablets 1 PO qd Unknown 11/03/2017 Cialis - Hx Tablets 20m 20t 1/2 po q 3 Days Jude Frey 11/19/2016 g abs Carlos Raza Albuterol - Hx Aerosol 90m 3Mo 2 PO Puffs qid Tramaine, 11/19/2016 / [facility] prn MD Ben Act Levothyroxine - Hx Tablets 150 90t 1 by mouth Unknown Sodium 03/24/2018 mcg abs every day Gabapentin - Hx Capsules 300 270 1 by mouth Unknown 01/27/2017 mg cap three times a s day Bupropion HCL ER - Hx Tablets ER 150 30t 1 by mouth Unknown (SR) 11/19/2016 12HR mg abs every day Trazodone HCL - Hx Tablets 100 30t 3 by mouth Unknown 10/03/2017 mg abs every night at bedtime Azathioprine - Hx Tablets 50m 90t 1 1/2 by mouth Unknown 11/19/2016 g abs every day Venlafaxine HCL ER - Hx Tablets ER 150 90t 1 by mouth Unknown 11/19/2016 24HR mg abs every day Victoza - Hx Sopn 18m 30u daily Unknown 11/19/2016 g/3 nit ML s Tramadol HCL - Hx Tablets 50m 50t four times a Unknown 11/03/2017 g abs day as needed Enalapril Maleate - Hx Tablets 1 tab daily Unknown 11/03/2017 Diltiazem HCL ER - Hx Unknown 11/19/2016 Glipizide - Hx daily Unknown 01/26/2017 Omeprazole - Hx Unknown 11/19/2016 Calcium Citrate + - Hx Unknown D3 11/19/2016 Fish Oil Ultra - Hx Unknown 11/19/2016 Ascorbic Acid - Hx Unknown 11/19/2016 Cyanocobalamin - Hx 250 1 tab daily Unknown 11/03/2017 mg Cephalexin - Hx Capsules 500 as directed Unknown 01/26/2017 mg Meloxicam - Hx Tablets 15m daily Unknown 01/26/2017 g Ranitidine HCL - Hx Tablets 150 take one tablet Unknown 11/03/2017 mg by mouth twice a day Liraglutide Inj - Hx 1.2 mg Subq Unknown 11/03/2017 daily Nucynta ER - Hx Tablets ER 50m Unknown 01/26/2017 12HR g Oxycodone HCL - Hx Tablets 10m 1 tab q4-6 Unknown 01/26/2017 g hours Victoza - Hx Solution 18m John Faith, 01/26/2017 Pen-Inject g/3 MD ML Gabapentin - Hx Capsules 400 1 PO every Unknown 01/27/2017 mg morning 2 PO at bedtime Lactulose - Hx Solution 10G take 15 ml by Unknown 11/03/2017 M/1 mouth every 72 5ML hours as needed for constipation Melatonin ER - Hx Tablets ER 3mg 2 tab by mouth Unknown 11/03/2017 every day every night Polyethylene - Hx Powder mix 17gm with 8 Unknown Glycol 3350 11/03/2017 ounces of fluids once daily prn Sennosides - Hx Tablets 8.6 2 tabs PO bid Unknown 11/03/2017 mg prn Morphine Sulfate - Hx Unknown ER 10/13/2017 Vital Signs Date Vital Result Comment 03/25/2018 Height 70 inches 5'10" currently in wheelchair Weight 300.00 lb Heart Rate 76 /min BP Systolic 136 mmHg BP Diastolic 68 mmHg Respiratory Rate 16 /min BMI (Body Mass Index) 43.0 kg/m2 12/30/2017 Height 70 inches 5'10" Weight 310.00 lb Heart Rate 68 /min BP Systolic Sitting 122 mmHg BP Diastolic Sitting 64 mmHg Respiratory Rate 16 /min Pain Level 2 BMI (Body Mass Index) 44.5 kg/m2 12/04/2017 Height 70 inches 5'10" Heart Rate 86 /min BP Systolic 140 mmHg BP Diastolic 80 mmHg Respiratory Rate 18 /min Body Temperature 98.8 F Pain Level 0 11/18/2017 Height 70 inches 5'10" Weight 310.00 [...] Test Date Test Result H/L Range Note Urine Culture And 10/28/2017 Urine Culture SEE RESULT BELOW 1 Sensitivities Type & Screen 10/28/2017 Patient Blood O Negative Type Antibody Screen NEGATIVE Laboratory test finding 10/28/2017 Partial Thrombo Time 26.7 seconds 26.0 -36.3 PTT Inr/Protime 10/28/2017 Inr 0.96 0.77-1.02 2 Comp Metabolic Panel 10/28/2017 Sodium 138 mmol/L [...] Egfr Non- 41.5 >60 Egfr 53.4 >60 3 Urinalysis Profile 10/28/2017 Urine Color Yellow Urine Appearance Cloudy Urine Specific Duncan 1.017 1.010-1.030 Urine pH 5.0 5-9 Urine Urobilinogen Negative Negative Urine Ketones Negative Negative Urine Protein Negative Negative Urine Leukocytes Negative Negative Urine Blood Negative Negative * * Negative 4 Urine Nitrite Negative Negative Urine Bilirubin Negative Negative Urine Glucose Negative Negative CBC No Diff 10/28/2017 White Blood Count [...] 150-450 Mean Platelet Volume 9 um3 7.4-10.4 Laboratory test finding 10/02/2017 Point of Care [...] <SEE NOTE> 77 Laboratory test finding 02/09/2008 Prolactin 18.76 NG/ML 1.0-20.0 Testosterone Total 89.8 ng/dL Low 175-781 Laboratory test finding 02/09/2008 FSH 4.97 MIU/ML 78 Lutenizing Hormone 4.58 MIU/ML 79 Urine Collection Duration 02/09/2008 Cortisol, Free, Urine 6.4 ug/24h 3.5 -45 Urine Collection Duration 24 h () Urine Total Volume 2450 mL () 80 Laboratory test finding 02/02/2008 TSH 0.33 MIU/ML [...] 1.7 mg/dL High 0.5-1.4 81 Laboratory test 02/02/2008 Free Thyroxine 0.78 NG/ML 0.61-1.24 81, 83 finding Laboratory test 01/27/2008 O P: Giardia/Crypto Giardia and cryp 81, 84 finding Screen <SEE NOTE> Stool For Polys 01/27/2008 Stool Color LIGHT BROWN 81 Stool Consistency FIRM 81 Stool Form FORMED 81 Stool For WBCS (Polys) NONE DETECTED Negative 81 Laboratory test finding 01/19/2008 Erythrocyte Sed Rate 19 MM/HR 0-40 85 Hemoglobin A1c 6.6 % High <6.0 85, 86 CBC With Electronic Diff 01/19/2008 White Blood [...] % 10.5-15 85 Laboratory test finding 01/19/2008 TSH 0.33 MIU/ML Low 0.34-5.60 85 Comp Metabolic Panel 01/19/2008 One Over Creatinine 0.55 85 Anion Gap 11.0 mmol/L 2-11 85, 87 Albumin/Globulin Ratio 1.3 1-3 85 Albumin 4.1 [...] 3.5-5.0 85 Sodium 142 mmol/L 135-145 85, 88 Bilirubin Total 0.9 mg/dL 0.4-1.5 85 Total Protein 7.2 GM/DL 6.2-8.1 85 BUN/Creatinine Ratio 15.6 8-20 85 Creatinine 1.8 mg/dL High 0.5-1.4 85 Surgical Pathology 08/20/2007 Surgical Pathology <SEE 89 NOTE> 1 SEE RESULT BELOW Name: CHRIS CARLOS : [address]: Anabella Huston MD Acct: [id number] Unit: [id number] AGE: 76 Location: [facility] Re10/28/17 SEX: M Status: REG REF SPEC: [id number] COLT: 10/28/17-[address] [facility] [address]: Anabella Hutson MD REQ: [id number] RECD: 10/28/17 STATUS: VANDA FELIX DR: Jose Burgos MD _ SOURCE: URINE SPDESC: ORDERED: Urine Culture QUERIES: Urine Source: Clean Catch Procedure Result Reported Site Urine Culture Final 10/29/17- 1146 ML No Growth (<1,000 CFU/mL) * ML - MAIN LAB ([facility]) . END OF REPORT * ML=Testing performed at Main Lab DEPARTMENT OF PATHOLOGY, [address] [place] [address] Nando Mercado M.D. Director [facility] # [id number] 2 Please note the change in INR reference range effective 17. 3 Because ethnic data is not always readily [...] 15-29 5 Kidney failure <15 (or dialysis) 4 *Ascorbic acid is present which may interfere with detection of blood. 5 Support Services Specialist: [id number] 6 Support Services Specialist: [id number] 7 Support Services Specialist: [id number] 8 Anion gap measurement may be of limited value in the presence of any alkalosis, especially in a combined acid base disorder. . 9 Note change in reference range as of 06/23/08. The change was based on recommendations from the [employer] [employer]. 10 Please note change in [...] THAN 10 . 14 Test Performed by: [facility] Dpt of Lab Med and Pathology [address] [place] [address] Researcher: Calin Thompson III, M.D. 15 Anion gap measurement may be of limited value in the presence of any alkalosis, especially in a combined acid base disorder. . 16 Note change in reference range as of 06/23/08. The change was based on recommendations from the [employer]. 17 Please note change in [...] IN SELECTIVE PATIENTS <6.0%. PLEASE REFER TO [employer] DIABETIC CARE GUIDELINES FOR FURTHER INFORMATION. 22 Test Performed by: [facility] Dpt of Lab Med and Pathology [address] [place] [address] Researcher: Calin Thompson III, M.D. 23 PLEASE NOTE NEW REFERENCE RANGES. 24 THERAPEUTIC TARGET FOR THE TREATMENT OF DIABETES MELLITUS PATIENTS IS <7% HBA1C, AND IN SELECTIVE PATIENTS <6.0%. PLEASE REFER TO [employer] DIABETIC CARE GUIDELINES FOR FURTHER INFORMATION. 25 Test Performed by: [facility] Dpt of Lab Med and Pathology [address] [place] [address] Researcher: Calin Thompson III, M.D. 26 Anion gap measurement may be of limited value in the presence of any alkalosis, especially in a combined acid base disorder. . 27 Note change in reference range as of 06/23/08. The change was based on recommendations from the [employer]. 28 Please note change in [...] CLINICAL DIAGNOSTIC PROCEDURES. 32 Test Performed by: [facility] Dpt of Lab Med and Pathology [address] [place] [address] Researcher: Calin Thompson III, M.D. 33 FASTING 34 [...] IN SELECTIVE PATIENTS <6.0%. PLEASE REFER TO [employer] DIABETIC CARE GUIDELINES FOR FURTHER INFORMATION. 37 Test Performed by: [facility] Dpt of Lab Med and Pathology [address] [place], [place] [id number] Researcher: Calin Thompson III, M.D. 38 Anion gap measurement may be of limited value in the presence of any alkalosis, especially in a combined acid base disorder. . 39 Note change in reference range as of 06/23/08. The change was based on recommendations from the [employer]. 40 Please note change in reference range effective 08 . 41 TEST PERFORM BY [facility] PLEASE NOTE NORMAL RANGE 300-800 MOSM/KG 42 Anion gap measurement may be of limited value in the presence of any alkalosis, especially in a combined acid base disorder. . 43 Note change in reference range as of 06/23/08. The change was based on recommendations from the [employer]. 44 Please note change in reference range effective 08 . 45 TEST PERFORM BY [facility] PLEASE NOTE NORMAL RANGE 275-295 MOSMOL/KG 46 REFERENCE RANGE: AM 8.7-22.4 PM LESS THAN 10 . 47 Anion gap measurement may be of limited value in the presence of any alkalosis, especially in a combined acid base disorder. . 48 Note change in reference range as of 06/23/08. The change was based on recommendations from the [employer]. 49 Please note change in reference range effective 08 . 50 REFERENCE RANGE: AM 8.7-22.4 PM LESS THAN 10 . 51 Anion gap measurement may be of limited value in the presence of any alkalosis, especially in a combined acid base disorder. . 52 Note change in reference range as of 06/23/08. The change was based on recommendations from the [employer]. 53 Please note change in [...] THAN 10 . 57 Test Performed by: [facility] Dpt of Lab Med and Pathology [address] [place] [address] Researcher: Calin Thompson III, M.D. 58 Test Performed by: [facility] Dpt of Lab Med and Pathology [address] [place] [address] Researcher: Calin Thompson III, M.D. 59 Anion gap measurement may be of limited value in the presence of any alkalosis, especially in a combined acid base disorder. . 60 Note change in reference range as of 06/23/08. The change was based on recommendations from the [employer]. 61 Please note change in [...] IN SELECTIVE PATIENTS <6.0%. PLEASE REFER TO [employer] DIABETIC CARE GUIDELINES FOR FURTHER INFORMATION. 71 Test Performed by: [facility] Dpt of Lab Med and Pathology [address] [place] [address] Researcher: Calin Thompson III, M.D. 72 Test Performed by: [facility] Dpt of Lab Med and Pathology [address] [place] [address] Researcher: Calin Thompson III, M.D. 73 Test Performed by: [facility] Dpt of Lab Med and Pathology [address] [place] [address] Researcher: Calin Thompson III, M.D. 74 Anion gap measurement may be of limited value in the presence of any alkalosis, especially in a combined acid base disorder. . 75 Please note change in reference range effective 08 . 76 REFERENCE RANGE: AM 8.7-22.4 PM LESS THAN 10 . 77 ---- RUN DATE: 02/16/08 [facility] NMI LIVE PAGE 1 RUN TIME: 1520 Specimen Inquiry RUN USER: INTERFACE [id number] CHRIS CARLOS/Jacky <REG REF 02/14> ([id number]) ITALO Mcqueen MD, Bairon Back -- Specimen: [id number] SOUT Spec Date: 02/15/[address]: Bairon hudson MD Spec Type: SURGICAL P Received: 02/15/08-0049 Copies to: Jude Raza III, MD SPECIMEN [...] 02/16/08 1519 -- -- DEPARTMENT OF PATHOLOGY, [address] [place] [address] [facility] Permit #[id number] Nando Mercado M.D. Director of Laboratories [...] - 62 . 80 Test Performed by: [facility] Dpt of Lab Med and Pathology [address] [place] [address] Researcher: Calin Thompson III, M.D. 81 PATIENT MAY [...] is requested. Contact the Microbiology Department at [phone]. N^NEGATIVE BY IMMUNOASSAY^CRY N^NEGATIVE BY IMMUNOASSAY^RICH 85 FASTING PATIENT MAY HAVE RESULTS PER DOCTOR'S AUTHORIZATION. Questions regarding this report should be directed to your doctor. 86 THERAPEUTIC TARGET FOR THE TREATMENT OF DIABETES MELLITUS PATIENTS IS <7% HBA1C, AND IN SELECTIVE PATIENTS <6.0%. PLEASE REFER TO [employer]ATION DIABETIC CARE GUIDELINES FOR FURTHER INFORMATION. 87 Anion gap measurement may be of limited value in the presence of any alkalosis, especially in a combined acid base disorder. . 88 CORRECTED RESULT! WRONG RESULT WAS 134 89 ---- RUN DATE: 08/21/07 [facility] NMI LIVE PAGE 1 RUN TIME: 1531 Specimen Inquiry RUN USER: INTERFACE [id number] CHRIS CARLOS/Jacky <REG REF 08/19> ([id number]) [id number] Gilliland MD, Reinaldo -- Specimen: [id number] SOUT Spec Date: 08/20/[address]: Reinaldo [...] 08/21/07 1531 -- -- DEPARTMENT OF PATHOLOGY, [address] [place] [address] [facility] Permit #[id number] Nando Mercado M.D. Director of Laboratories Karthik Angulo II, M.D . Pathologist -- Procedures Date CPT Code Description Status Comment 11/21/201735729 RVS SHLD Artho Humeral & Completed Glenoid Component 11/21/201723301 RVS SHLD Artho Humeral & Completed Glenoid Component 11/05/2017 19517 Arthroplasty,Total Shoulder Completed Replacement (TSR) 11/05/201733450 Arthroplasty,Total Shoulder Completed Replacement (TSR) 10/02/201728457 Carpal Tunnel Release Completed 10/02/2017 86354 Neuroplasty &/Or Completed Transposition; Ulnar Nerve AT Elbow 10/02/2017 32176 Neuroplasty &/Or Completed Transposition; Ulnar Nerve AT Elbow 08/28/2017 47870 Neuroplasty &/Or Completed Transposition; Ulnar Nerve AT Elbow 08/28/2017 31649 Neuroplasty &/Or Completed Transposition; Ulnar Nerve AT Elbow 08/28/2017 31089 Carpal Tunnel Release Completed 05/20/2017 21154 Rad Exam; Wrist Limited, 2 Completed Views 01/28/2017 20713 Nerve Conduction 03-04 Completed Studies 10/29/201672985 THR Total Hip Replacement Completed 10/29/201662750 THR Total Hip Replacement Completed 10/28/2016 42901 Treadmill Interp/Report Only Completed 10/28/2016 90499 Stress Test Supervsn W/Out Completed I/R 10/27/2016 62337 EKG, Interpretation Only Completed 03/02/2014 03875 Rad Exam; Hand Comp Completed 12/14/2009 Diabetic Retinal Eye Exam Completed Document: 12/14/09 - Consult Ophthalmology Encounters Type Date Location Provider CPT E/M Dx Office Visit 11/24/2017 brandi Natarajan 97553 K74.60 8:02a Hospitalists DAKOTAH Jose E11.8 Z98.890 I10 Office Visit 11/23/2017 Heike Jose 60316 K74.60 8:01a Assoc,pc [employer] Hospitalists Z98.890 E11.8 I10 Office Visit 11/22/2017 [facility] Lita Jose, 59685 K74.60 8:00a Assoc, [employer] Hospitalists Z98.890 E11.8 I10 Office Visit 11/21/2017 7:59a [facility], 75319 K74.60 Assoc, Hospitalists N.P. E11.8 Z98.890 I10 Office Visit 11/09/2017 12:33p [facility] Assoc,pc Aaron Ortez, 06034 D69.6 Hospitalists M.Wong K74.60 Z96.619 I10 Office Visit 11/08[facility]2017 [facility] 20871 D69.6 Hospitalists M.Wong K74.60 I10 Office Visit 11/07/2017 12:32p [facility] Latanya Cho, 41869 K74.60 Assoc, Hospitalists [employer] D69.6 I10 Office Visit 11/06/2017 12:31p [facility] Latanya Cho, 57417 K74.60 Assoc, Hospitalists [employer] D69.6 Z96.619 I10 Office Visit 11/05/2017 12:30p [facility], 45688 K74.60 Assoc, Hospitalists N.P. D69.6 Z96.619 I10 Office Visit 09/16/2017 2:00p [facility] [place] [address] M19.011 C.M.A. Office Visit 05/30/2017 11:30a [place]/Heike Araya, 29225 E11.42 Neurolog[facility] Serv Of Joyce Gonzalez Office Visit 05/20/2017 3:00p [facility] [address] G56.03 C.M.A. G56.23 Office Visit 01/27/2017 9:00a [place]/Heike Araya, 98851 E11.42 Neurologic Serv Of Joyce Gonzalez G56.03 G56.22 G62.9 Office Visit 10/31/2016 2:54p [facility] Assoc, Demond Acosta M.D. 11034 E11.22 Hospitalists S72.002A N18.3 I10 Office Visit 10/30/2016 2:53p [facility] Demond Acosta M.D. 65828 S72.002A Assoc, Hospitalists N18.3 E11.22 I10 Office Visit 10/29/2016 2:52p [facility] Demond Acosta M.D. 04244 S72.002A Assoc, Hospitalists N18.3 E11.22 I10 Office Visit 10/28/2016 2:52p [facility] Assoc, Esteban Gaona, 73740 N18.3 Hospitalists Carlos,FACP S72.002A E11.22 Office Visit 10/27/2016 1:44p [facility] Tomas Gaines, 09730 M87.052 Of Brittanie KNIGHT M16.12 Office Visit 10/27/2016 2:51p [facility] Esteban Gaona, 12176 S72.002A Assoc, Hospitalists Carlos,FACP N18.3 E11.22 Office Visit 10/26/2016 2:50p [facility] Dwight Savoy, 07684 E11.22 Assoc, Hospitalists N.PSharron S72.002A N18.3 I10 Office Visit 10/26/2016 1:44p [facility] Tomas Gaines, 45043 M87.052 Of Brittanie KNIGHT M16.12 Office Visit 10/25/2016 [facility] 06801 S72.002A Assoc, Carlos ZAFAR Hospitalists E11.22 N18.3 I10 Office Visit 07/12/2014 9:15a [facility] Gato Stewart M.D. 81566 716.91 Of Brittanie Office Visit 03/23/2014 9:15a [facility] Mary Leija 98231 715.14 Of [facility] Office Visit 03/02/2014 1:15p [facility] Mary Leija 41676 719.44 Of [facility] Office Visit 09/03/2013 6:03p [facility], 28716 482.9 Assoc,pc Hospitalists Carlos 250.00 995.90 401.9 Office Visit 09/02/2013 6:02p [facility], 14908 995.90 Assoc,pc Hospitalists MKirill 482.9 250.00 401.9 Office Visit 09/01/2013 6:02p [facility], 28667 995.90 Assoc,pc Hospitalists Carlos 482.9 250.00 401.9 Office Visit 08/31/2013 6:01p [facility], 91926 995.90 Assoc,pc Hospitalists MKirill 482.9 250.00 401.9 Office Visit 08/31/2013 1:10p [facility] Rudy Lezama, 88193 728.87 Services Of Joyce Gonzalez V12.40 Office Visit 08/30/2013 6:00p [facility], [address] 995.90 Assoc, Hospitalists Carlos 482.9 250.00 401.9 Office Visit 08/29/2013 5:53p [facility], 72808 995.90 Assoc, Hospitalists [facility] 482.9 250.00 401.9 Office Visit 08/28/2013 9:54a [facility], 14088 780.79 Assoc, Hospitalists Carlos 276.1 275.2 276.51 Office Visit 08/09/2009 10:00a DO Not Use Transportation Sales Consultant [facility], 88403 401.1 [facility].Wong 250.00 780.57 227.3 Office Visit 02/07/2009 10:30a [facility], 26597 250.00 [facility] M.Wong Office Visit 05/03/2008 9:15a [facility], 71898 787.02 [facility].Wong 250.00 Office Visit 04/22/2008 10:00a [facility], 51119 227.9 Of Joyce Gonzalez Office Visit 02/02/2008 9:30a [facility], 27768 787.02 [facility] M.D. 789.00 244.9 250.00 Office Visit 01/19/2008 11:00a [facility], 65319 787.02 [facility] M.D[facility] 780.79 250.00 Office Visit 12/14/2007 10:15a [facility], 28839 250.00 [facility] M[facility] Office Visit 11/13/2007 10:15a [facility], 28991 250.00 [facility] M.D. 401.1 244.9 Plan of Care Future Appointment(s):10/06/2018 10:30 am - Rudy Lezama M.D. at [facility]04/07/2018 10:00 am - Carlo Trent MD at [facility]03/25/2018 - Rudy Lezama M.D.G56.03 Carpal tunnel syndrome, bilateral upper vomnrM86.42 Type 2 diabetes mellitus with diabetic polyneuropathyFollow up:6 [id number] Lesion of ulnar nerve, bilateral upper limbs
--- NOTE | 2018-04-02 09:04 | UC ---
Skin Complaint HPI - HPI Summary HPI Summary: Large flap laceration to the right forearm, sustained at [facility] today when he came in for a blood draw. Door caught his arm and sheared his skin. 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 Eyes: Negative ENT: Negative Respiratory: Negative Cardiovascular: Negative Gastrointestinal: Negative Genitourinary: Negative Motor: Negative Neurovascular: Negative Musculoskeletal: Other: - recovering from right shoulder replacement. Neurological: Negative Psychological: Negative All Other Systems Reviewed And Are Negative: Yes PMH/Surg Hx/FS Hx/Imm Hx Previously Healthy: No Endocrine History: Diabetes, Thyroid Disease GI/ History: Gastroesophageal Reflux - Surgical History Surgical History: Yes Surgery Procedure, Year, and Place: 1972 ANAL FISSURE ([place]); [address] [facility] RT SHOULDER ROTATOR CUFF; 1994 RIGHT KNEE SCOPE; [address] [facility] LEFT KNEE SCOPE; ABD EXPLORATORY SURGERY - 's. 2006 [facility] [place];. LT SHOULDER 08/2014. right shoulder total reverse nov 2017 - Family History Known Family History: Positive: Unknown - not assessed due to nature of visit ( laceration occurred on site) - Social History Occupation: Retired Alcohol Use: None Substance Use Type: None Smoking Status (MU): Never Smoked Tobacco - Immunization History Most Recent Influenza Vaccination: Never, contraindicated Most Recent Tetanus Shot: Never, contraindicated Most Recent Pneumonia Vaccination: Never, contraindicated Physical Exam Triage Information Reviewed: Yes Appearance: Obese, Other: - looks chronically unwell Vital Signs: Initial Vital Signs Temp 98.3 F 04/02/18 08:34 Pulse 77 04/02/18 08:34 Resp 20 04/02/18 08:34 BP 127/80 04/02/18 08:34 Pulse Ox 96 04/02/18 08:34 Vital Signs Reviewed: Yes Respiratory: Positive: Lungs clear Cardiovascular: Positive: RRR, No Murmur Skin Exam: Other - flap laceration right forearm, irregular margin Laceration Repair - Laceration Repair 1 Description: Irregular Laceration Size After Repair: Length (cm) - 6 Modified For Repair: No Closure Material: SteriStrips - applied 5 steristrips to approximate margins of flap laceration right forearm. Course/Dx - Course Course Of Treatment: steristrips to flap laceration - Diagnoses Provider Diagnoses: flap laceration right forearm Discharge - Sign-Out/Discharge Documenting (check all that apply): Discharge/Admit/Transfer - Discharge Plan Condition: Stable Disposition: HOME Prescriptions: Foam Bandage [Mepilex Border Sacrum] 1 each TP ONCE #6 bandage Patient Education Materials: Laceration (ED) Referrals: Jose Burgos MD [Primary Care Provider] - Additional Instructions: The laceration has been closed with steristrips. These will stay in place for 7 to 1 days, then gradually peel away. Keep Mepilex border dressing over the wound. Change dressing once daily. - Billing Disposition and Condition Condition: STABLE Disposition: HOME
== END 2018-04-02 09:10 | disposition home or self-care (01) ==
LOC: UCCORT 08:25
DX: S51.811A Laceration without foreign body of right forearm, initial encounter (principal); W22.09XA Striking against other stationary object, initial encounter; Y93.01 Activity, walking, marching and hiking; Y92.538 Other ambulatory health services establishments as the place of occurrence of the external cause; Z88.5 Allergy status to narcotic agent
CPT/HCPCS: 99213; G0463

== ENCOUNTER 2018-08-07 16:59 | Emergency (ER) | payer MEDICARE, BC ==
--- NOTE | 2018-08-07 17:48 | UC ---
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 Left side of abdomen chest pain." -here with his . -c/o cough and SOB started a few days ago. no documented fever. denies CAD. PCP at [facility]. being set up for a holter monitor d/t abnml rhythm. -no respitarory hx. denies copd and asthma. non-smoker. no inhalers prescribed. -admits to having chest pain yesterday and upper left abdomen vague area. felt like someone was sitting on his chest yesterday. -his son is a PA who listed to his lungs and reports wheezing left lower side. +DM. 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 [facility] - History of Current Complaint Chief Complaint: UCRespiratory Stated Complaint: SOB/COUGH Time Seen by Provider: 08/07/18 17:36 Pain Intensity: 5 - Allergies/Home Medications Allergies/Adverse Reactions: Allergies Allergy/AdvReac Type Severity Reaction Status Date / Time tapentadol [From Nucynta] Allergy Itching Verified 08/07/18 17:17 Home Medications: Home Medications Cyanocobalamin TAB* [Vitamin B12 TAB*] 500 mcg PO DAILY 08/07/18 [History Confirmed 08/07/18] Dextran 70/Hypromellose/Pf [Artificial Tears Drops] 1 each OP DAILY 08/07/18 [ History Confirmed 08/07/18] Enalapril TAB* [Vasotec TAB*] 10 mg PO DAILY 08/07/18 [History Confirmed ] Magnesium Oxide [Magnesium] 400 mg PO DAILY 08/07/18 [History Confirmed 08/07/18 ] traZODone TAB* [Desyrel TAB*] 100 mg PO BEDTIME 08/07/18 [History Confirmed 03/20] PMH/Surg Hx/FS Hx/Imm Hx Previously Healthy: Yes Endocrine History: Diabetes, Thyroid Disease Cardiovascular History: Hypertension - Surgical History Surgical History: Yes Surgery Procedure, Year, and Place: 1972 ANAL FISSURE ([place]); 1981 [facility] RT SHOULDER ROTATOR CUFF; 1994 RIGHT KNEE SCOPE; 1992 [facility] LEFT KNEE SCOPE; ABD EXPLORATORY SURGERY - 's. 2006 [place] [place];. LT SHOULDER 08/2014. right shoulder total reverse nov 2017 - Family History Known Family History: Positive: Hypertension - Social History Alcohol Use: None Substance Use Type: None Smoking Status (MU): Never Smoked Tobacco - Immunization History Most Recent Influenza Vaccination: Never, contraindicated Most Recent Tetanus Shot: Never, contraindicated Most Recent Pneumonia Vaccination: Never, contraindicated Review of Systems Constitutional: Fatigue Skin: Negative Eyes: Negative ENT: Negative Respiratory: Negative, Cough Cardiovascular: Chest Pain Gastrointestinal: Negative Genitourinary: Negative Motor: Negative Neurovascular: Negative Musculoskeletal: Negative Neurological: Negative Psychological: Negative Is Patient Immunocompromised?: No All Other Systems Reviewed And Are Negative: Yes Physical Exam Triage Information Reviewed: Yes Appearance: Ill-Appearing - appears chronically ill. Vital Signs: Initial Vital Signs Temp 98.5 F 08/07/18 17:13 Pulse 77 08/07/18 17:13 Resp 21 08/07/18 17:13 BP 136/57 08/07/18 17:13 Pulse Ox 98 08/07/18 17:13 Vital Signs Reviewed: Yes Eye Exam: Normal ENT: Positive: Pharynx normal, TMs normal Neck exam: Normal Neck: Positive: Supple, Nontender, No Lymphadenopathy Respiratory: Positive: Lungs clear, Normal breath sounds, No respiratory distress, No accessory muscle use. Negative: Crackles, Rhonchi, Stridor, Wheezing Cardiovascular Exam: Normal Cardiovascular: Positive: RRR, No Murmur, Pulses Normal Abdomen Description: Positive: Nontender, Soft Musculoskeletal Exam: Normal Neurological Exam: Normal Psychological Exam: Normal Skin Exam: Normal Diagnostic Evaluation - Laboratory O2 Sat by Pulse Oximetry: 98 Respiratory Course/Dx - Course Course Of Treatment: EKG: SR w/ premature atrial complexes. prolonged MD. LAFB & RBBB, change from prev EKG found on file in 2015. CXR - no pneumonia. no official read. -I am very concerned about the vague chest pressure an epigatsric vague LUQ pain yesterday that felt like something was sitting on his chest. explained that this is cardiac until proven o/w and relayed signfiicant consequences potential if not further evaluated at [facility] level of care. they agree to go to [facility]. -s/w Dr Ba at [facility] at 18:25 to notify of SOB and chest pain. Dr Ba stated to send him over and attempted to end conversation. I told him I wanted to tell him more history. He told me "I don't have time to hear more, I'm busy trying to intubate 3 people." and then he ended conversation. I was unable to tell him about EKG, CXR or his vague history of chest pressure and vague epigastric LUQ pain. 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 -initially declined ambulance but has changed his mind and agrees to ambulance - Differential Dx/Diagnosis Differential Diagnosis/HQI/PQRI: Asthma, Bronchitis, Influenza, Other - chest pain Provider Diagnoses: chest pain, SOB Discharge - Sign-Out/Discharge Documenting (check all that apply): Patient Departure All imaging exams completed and their final reports reviewed: No - Discharge Plan Condition: Fair Disposition: TRANS HIGHER LVL OF CARE FAC Referrals: Jose Burgos MD [Primary Care Provider] - - Billing Disposition and Condition Condition: FAIR Disposition: Trans Higher Lvl of Care Fac
--- NOTE | 2018-08-07 18:25 | RAD ---
INDICATION: Shortness of breath and chest pain. COMPARISON: Comparison is made with a prior study from October 28, 2017. TECHNIQUE: Dual-energy PA and lateral views of the chest were obtained. FINDINGS: The heart is within normal limits in size. Mediastinal and hilar contours appear within normal limits. The lungs are underinflated. There is mild subsegmental atelectasis at the left lung base. The lungs otherwise clear. No pleural effusion or pneumothorax is seen. The patient is status post total right shoulder arthroplasty. IMPRESSION: NO EVIDENCE FOR ACTIVE CARDIOPULMONARY DISEASE.
[2018-08-07 18:41] VITALS: BP 127/62
--- NOTE | 2018-08-08 10:50 | UC ---
- Progress Note Progress Note: Final chest x ray reviewed. NO active disease Discharge - Sign-Out/Discharge Documenting (check all that apply): Post-Discharge Follow Up All imaging exams completed and their final reports reviewed: Yes - Discharge Plan Condition: Fair Disposition: TRANS HIGHER LVL OF CARE FAC Referrals: Jose Burgos MD [Primary Care Provider] - - Billing Disposition and Condition Condition: FAIR Disposition: Trans Higher Lvl of Care Fac
== END 2018-08-07 18:42 | disposition short-term general hospital (02) ==
LOC: UCCORT 16:59
DX: R07.9 Chest pain, unspecified (principal); R06.02 Shortness of breath
CPT/HCPCS: 71046; 93005; 99213; G0463

== ENCOUNTER 2022-02-23 11:46 | Inpatient (IN) ==
[2022-02-23 16:46] LABS: Venous Bicarbonate HCO3 21.4 mmol/L (24-28)
[2022-02-23 16:47] LABS: ABS Lymphocytes 0.4 10^3/ul (1.0-4.8); ABS Monocytes 0.4 10^3/ul (0-0.8); ABS Neutrophils 2.3 10^3/ul (1.5-7.7); Eosinophil % 1.2 %; Hematocrit 34 % (42-52); Hemoglobin 11.4 g/dL (14.0-18.0); Lymphocyte % 13.8 %; Mean Corpuscular HGB Conc 34 g/dL (31-36); Mean Corpuscular Hemoglobin 33 pg (27-31); Mean Corpuscular Volume 97 fL (80-94); Mean Platelet Volume 7.8 fL (7.4-10.4); Nucleated Red Blood Cells % 0.1; Platelet Count 53 10^3/uL (150-450); Red Blood Count 3.49 10^6 /uL (4.18-5.48); Red Cell Distribution Width 17 % (10-15); White Blood Count 3.2 10^3/uL (3.5-10.8)
[2022-02-23 17:08] LABS: High Sens Troponin Baseline 10 pg/mL (<20)
[2022-02-23 17:18] LABS: CO2 Carbon Dioxide 23 mmol/L (22-32); Chloride 104 mmol/L (101-111); Potassium 3.9 mmol/L (3.5-5.0); Sodium 135 mmol/L (135-145)
[2022-02-23 17:19] LABS: ALT 42 U/L (7-52); AST 55 U/L (13-39); Albumin 3.5 g/dL (3.2-5.2); Albumin/Globulin Ratio 1.4 (1-3); Alkaline Phosphatase 118 U/L (35-149); Anion Gap 8 mmol/L (2-11); Blood Urea Nitrogen 33 mg/dL (6-24); Calcium 9.6 mg/dL (8.6-10.3); Globulin 2.5 g/dL (2-4); Glucose 166 mg/dL (70-100); eGFR CKD-EPI 53.9 (>60)
[2022-02-23 18:07] LABS: Urine Appearance Clear; Urine Bilirubin Negative (Negative); Urine Blood Negative (Negative); Urine Color Yellow; Urine Glucose Negative (Negative); Urine Ketones Negative (Negative); Urine Nitrite Negative (Negative); Urine Protein Negative (Negative); Urine Specific Gravity 1.015 (1.002-1.030); Urine Urobilinogen Negative (Negative)
[2022-02-23 18:23] LABS: High Sensitivity Troponin 1 Hr 9 pg/mL (<20)
[2022-02-23] MEDS ORDERED: Dextrose 50% Syringe 50 ml 25 GM/50 ML SYRINGE IV PUSH PRN (19:05)
[2022-02-23 20:04] LABS: Folate > 20.00 ng/mL (5.90-24.80)
[2022-02-23 20:05] LABS: Vitamin B12 > 1450 pg/mL (180-914)
[2022-02-23] MEDS ORDERED: Enoxaparin 40 MG/0.4 ML SYR SUBCUT SCH (21:00)
[2022-02-23] MEDS: Albuterol HFA INHALER 8 gm MDI INH PRN (21:21)
[2022-02-24 06:35] LABS: Hematocrit 32 % (42-52); Mean Corpuscular HGB Conc 34 g/dL (31-36); Mean Corpuscular Hemoglobin 33 pg (27-31); Mean Corpuscular Volume 97 fL (80-94); Mean Platelet Volume 7.8 fL (7.4-10.4); Platelet Count 45 10^3/uL (150-450); Red Blood Count 3.32 10^6 /uL (4.18-5.48); Red Cell Distribution Width 17 % (10-15); White Blood Count 2.6 10^3/uL (3.5-10.8)
[2022-02-24 06:52] LABS: Albumin 3.2 g/dL (3.2-5.2); Albumin/Globulin Ratio 1.3 (1-3); Calcium 8.9 mg/dL (8.6-10.3); Direct Bilirubin 0.2 mg/dL (0.03-0.18); Globulin 2.4 g/dL (2-4); Potassium 4.7 mmol/L (3.5-5.0); Total Bilirubin 1.2 mg/dL (0.2-1.0); Total Protein 5.6 g/dL (6.4-8.9); eGFR CKD-EPI 51.5 (>60)
[2022-02-24 07:39] LABS: ABS Lymphocytes 0.2 10^3/ul (1.0-4.8); ABS Monocytes 0.1 10^3/ul (0-0.8); ABS Neutrophils 2.3 10^3/ul (1.5-7.7); Eosinophil % 0.1 %; Nucleated Red Blood Cells % 0.6
[2022-02-24 08:13] LABS: Glucose Confirmatory 413 mg/dL (70-100)
[2022-02-24 12:16] LABS: Glucose Confirmatory 444 mg/dL (70-100)
[2022-02-24] MEDS ORDERED: Insulin GLARGINE 100 un/ml 10 ml VIAL SUBCUT ONE ×2 (13:49→21:36)
[2022-02-24] MEDS ORDERED: NS 0.9% w/ 40 Meq KCL 1000 ML 1,000 ML IV SCH (16:00)
[2022-02-24] MEDS ORDERED: Dextrose 50% Syringe 50 ml 25 GM/50 ML SYRINGE IV PUSH PRN ×2 (20:27→23:35)
[2022-02-25 06:31] LABS: ABS Lymphocytes 0.3 10^3/ul (1.0-4.8); ABS Monocytes 0.2 10^3/ul (0-0.8); ABS Neutrophils 3.5 10^3/ul (1.5-7.7); Hematocrit 31 % (42-52); Hemoglobin 10.5 g/dL (14.0-18.0); Mean Corpuscular HGB Conc 34 g/dL (31-36); Mean Corpuscular Hemoglobin 33 pg (27-31); Mean Corpuscular Volume 98 fL (80-94); Mean Platelet Volume 8.8 fL (7.4-10.4); Platelet Count 49 10^3/uL (150-450); Red Blood Count 3.13 10^6 /uL (4.18-5.48); Red Cell Distribution Width 17 % (10-15); White Blood Count 3.9 10^3/uL (3.5-10.8)
[2022-02-25 06:39] LABS: Albumin 3.1 g/dL (3.2-5.2); Albumin/Globulin Ratio 1.3 (1-3); Globulin 2.4 g/dL (2-4); Potassium 5.1 mmol/L (3.5-5.0); Total Bilirubin 0.6 mg/dL (0.2-1.0); Total Protein 5.5 g/dL (6.4-8.9); eGFR CKD-EPI 38.9 (>60)
[2022-02-25] MEDS: Insulin GLARGINE 100 un/ml 10 ml VIAL SUBCUT SCH (08:42)
[2022-02-25] MEDS ORDERED: Insulin GLARGINE 100 un/ml 10 ml VIAL SUBCUT SCH ×2 (09:00)
[2022-02-25 12:27] LABS: Glucose Confirmatory 432 mg/dL (70-100)
[2022-02-25 15:13] LABS: TSH Ultra Thyroid Stim Horm 0.5 mcIU/mL (0.34-5.60)
[2022-02-25 16:15] LABS: Ferritin 105.7 ng/mL (24-336)
[2022-02-25 18:26] LABS: Glucose Confirmatory 425 mg/dL (70-100)
[2022-02-25] MEDS ORDERED: Dextrose 50% Syringe 50 ml 25 GM/50 ML SYRINGE IV PUSH PRN (20:11)
[2022-02-25] MEDS: Albuterol HFA INHALER 8 gm MDI INH PRN (20:15)
[2022-02-25 22:14] LABS: Glucose Confirmatory 417 mg/dL (70-100)
[2022-02-25] MEDS ORDERED: Furosemide 20 mg/2 ml IV VIAL IV ONE (22:20)
[2022-02-26] MEDS: Insulin GLARGINE 100 un/ml 10 ml VIAL SUBCUT SCH ×3 (01:06→22:29)
[2022-02-26 07:19] LABS: ABS Lymphocytes 0.2 10^3/ul (1.0-4.8); ABS Monocytes 0.2 10^3/ul (0-0.8); ABS Neutrophils 3.7 10^3/ul (1.5-7.7); Hematocrit 31 % (42-52); Hemoglobin 10.9 g/dL (14.0-18.0); Lymphocyte % 5.9 %; Mean Corpuscular HGB Conc 35 g/dL (31-36); Mean Corpuscular Hemoglobin 34 pg (27-31); Mean Corpuscular Volume 96 fL (80-94); Mean Platelet Volume 8.3 fL (7.4-10.4); Platelet Count 46 10^3/uL (150-450); Red Blood Count 3.24 10^6 /uL (4.18-5.48); Red Cell Distribution Width 17 % (10-15); White Blood Count 4.1 10^3/uL (3.5-10.8)
[2022-02-26 07:29] LABS: Calcium 9.1 mg/dL (8.6-10.3); Potassium 4.9 mmol/L (3.5-5.0); eGFR CKD-EPI 45.1 (>60)
[2022-02-27 05:09] LABS: ABS Lymphocytes 0.3 10^3/ul (1.0-4.8); ABS Monocytes 0.2 10^3/ul (0-0.8); Hematocrit 33 % (42-52); Hemoglobin 11.2 g/dL (14.0-18.0); Lymphocyte % 5.9 %; Mean Corpuscular HGB Conc 34 g/dL (31-36); Mean Corpuscular Hemoglobin 33 pg (27-31); Mean Corpuscular Volume 96 fL (80-94); Mean Platelet Volume 8.5 fL (7.4-10.4); Platelet Count 49 10^3/uL (150-450); Red Blood Count 3.44 10^6 /uL (4.18-5.48); Red Cell Distribution Width 17 % (10-15); White Blood Count 4.6 10^3/uL (3.5-10.8)
[2022-02-27 05:29] LABS: Calcium 9.1 mg/dL (8.6-10.3); Potassium 4.7 mmol/L (3.5-5.0); eGFR CKD-EPI 50.2 (>60)
[2022-02-27] MEDS: Insulin GLARGINE 100 un/ml 10 ml VIAL SUBCUT SCH ×2 (08:29→21:25)
[2022-02-27] MEDS ORDERED: Insulin GLARGINE 100 un/ml 10 ml VIAL SUBCUT ONE (15:20)
[2022-02-27] MEDS: Albuterol HFA INHALER 8 gm MDI INH PRN (20:56)
[2022-02-28 06:50] LABS: ABS Lymphocytes 0.2 10^3/ul (1.0-4.8); ABS Monocytes 0.3 10^3/ul (0-0.8); ABS Neutrophils 3.4 10^3/ul (1.5-7.7); Hematocrit 32 % (42-52); Hemoglobin 11.1 g/dL (14.0-18.0); Mean Corpuscular HGB Conc 35 g/dL (31-36); Mean Corpuscular Hemoglobin 33 pg (27-31); Mean Corpuscular Volume 96 fL (80-94); Mean Platelet Volume 7.9 fL (7.4-10.4); Platelet Count 42 10^3/uL (150-450); Red Blood Count 3.33 10^6 /uL (4.18-5.48); Red Cell Distribution Width 17 % (10-15); White Blood Count 3.9 10^3/uL (3.5-10.8)
[2022-02-28 07:01] LABS: Calcium 8.7 mg/dL (8.6-10.3); Potassium 4.3 mmol/L (3.5-5.0); eGFR CKD-EPI 48.9 (>60)
[2022-02-28] MEDS ORDERED: Insulin GLARGINE 100 un/ml 10 ml VIAL SUBCUT SCH (09:00)
[2022-02-28] MEDS: Insulin GLARGINE 100 un/ml 10 ml VIAL SUBCUT SCH (22:21)
[2022-03-01 07:04] LABS: Hematocrit 33 % (42-52); Hemoglobin 11.3 g/dL (14.0-18.0); Mean Corpuscular HGB Conc 34 g/dL (31-36); Mean Corpuscular Hemoglobin 33 pg (27-31); Mean Corpuscular Volume 96 fL (80-94); Mean Platelet Volume 8.7 fL (7.4-10.4); Platelet Count 49 10^3/uL (150-450); Red Blood Count 3.47 10^6 /uL (4.18-5.48); Red Cell Distribution Width 16 % (10-15); White Blood Count 4.7 10^3/uL (3.5-10.8)
[2022-03-01 07:07] LABS: Calcium 8.5 mg/dL (8.6-10.3); Potassium 4.2 mmol/L (3.5-5.0); eGFR CKD-EPI 52.4 (>60)
[2022-03-01 08:28] LABS: ABS Lymphocytes 0.4 10^3/ul (1.0-4.8); ABS Monocytes 0.5 10^3/ul (0-0.8); ABS Neutrophils 3.8 10^3/ul (1.5-7.7); Eosinophil % 0.1 %; Lymphocyte % 9.3 %
[2022-03-01] MEDS: Insulin GLARGINE 100 un/ml 10 ml VIAL SUBCUT SCH ×2 (09:03→20:41)
[2022-03-02 06:19] LABS: Hematocrit 36 % (42-52); Mean Corpuscular HGB Conc 34 g/dL (31-36); Mean Corpuscular Hemoglobin 33 pg (27-31); Mean Corpuscular Volume 97 fL (80-94); Mean Platelet Volume 8.6 fL (7.4-10.4); Platelet Count 54 10^3/uL (150-450); Red Blood Count 3.68 10^6 /uL (4.18-5.48); Red Cell Distribution Width 17 % (10-15); White Blood Count 6.8 10^3/uL (3.5-10.8)
[2022-03-02 06:33] LABS: Calcium 8.2 mg/dL (8.6-10.3); Potassium 4.1 mmol/L (3.5-5.0); eGFR CKD-EPI 53.9 (>60)
[2022-03-02] MEDS: Calcium/Vitamin D TAB 250/125 TAB PO SCH (07:45)
[2022-03-02] MEDS: Enoxaparin 40 MG/0.4 ML SYR SUBCUT SCH (07:46)
[2022-03-02] MEDS: Albuterol HFA INHALER 8 gm MDI INH PRN (09:19)
[2022-03-02] MEDS: Insulin GLARGINE 100 un/ml 10 ml VIAL SUBCUT SCH ×2 (09:21→20:33)
[2022-03-02] MEDS ORDERED: Furosemide 40 mg/4 ml IV VIAL IV ONE ×3 (09:49→16:00)
[2022-03-03] MEDS: Calcium/Vitamin D TAB 250/125 TAB PO SCH (08:58)
[2022-03-03] MEDS: Enoxaparin 40 MG/0.4 ML SYR SUBCUT SCH (08:59)
[2022-03-03] MEDS: Insulin GLARGINE 100 un/ml 10 ml VIAL SUBCUT SCH ×2 (09:00→20:22)
[2022-03-03 09:14] LABS: Hematocrit 37 % (42-52); Hemoglobin 12.5 g/dL (14.0-18.0); Mean Corpuscular HGB Conc 34 g/dL (31-36); Mean Corpuscular Hemoglobin 32 pg (27-31); Mean Corpuscular Volume 96 fL (80-94); Mean Platelet Volume 7.9 fL (7.4-10.4); Platelet Count 60 10^3/uL (150-450); Red Blood Count 3.88 10^6 /uL (4.18-5.48); Red Cell Distribution Width 17 % (10-15)
[2022-03-03] MEDS: Albuterol HFA INHALER 8 gm MDI INH PRN ×2 (09:16→17:41)
[2022-03-03 09:46] LABS: eGFR CKD-EPI 43.7 (>60)
[2022-03-04 06:09] LABS: ABS Eosinophils 0.1 10^3/ul (0-0.6); ABS Lymphocytes 0.5 10^3/ul (1.0-4.8); ABS Neutrophils 6.2 10^3/ul (1.5-7.7); Eosinophil % 1.6 %; Hematocrit 36 % (42-52); Hemoglobin 11.9 g/dL (14.0-18.0); Lymphocyte % 6.5 %; Mean Corpuscular HGB Conc 34 g/dL (31-36); Mean Corpuscular Hemoglobin 32 pg (27-31); Mean Corpuscular Volume 96 fL (80-94); Mean Platelet Volume 8.9 fL (7.4-10.4); Platelet Count 73 10^3/uL (150-450); Red Blood Count 3.68 10^6 /uL (4.18-5.48); Red Cell Distribution Width 17 % (10-15); White Blood Count 7.9 10^3/uL (3.5-10.8)
[2022-03-04 06:27] LABS: Calcium 8.1 mg/dL (8.6-10.3); Potassium 4.2 mmol/L (3.5-5.0); eGFR CKD-EPI 37.4 (>60)
[2022-03-04] MEDS: Insulin GLARGINE 100 un/ml 10 ml VIAL SUBCUT SCH ×2 (08:25→20:01)
[2022-03-04] MEDS: Enoxaparin 40 MG/0.4 ML SYR SUBCUT SCH (08:25)
[2022-03-04] MEDS: Calcium/Vitamin D TAB 250/125 TAB PO SCH (08:27)
[2022-03-04] MEDS: Albuterol HFA INHALER 8 gm MDI INH PRN (09:53)
[2022-03-04] MEDS ORDERED: Furosemide 20 mg/2 ml IV VIAL IV SLOW PU ONE (10:48)
[2022-03-05] MEDS: Albuterol HFA INHALER 8 gm MDI INH PRN ×3 (08:51→20:32)
[2022-03-05] MEDS: Enoxaparin 40 MG/0.4 ML SYR SUBCUT SCH (09:45)
[2022-03-05] MEDS: Insulin GLARGINE 100 un/ml 10 ml VIAL SUBCUT SCH ×2 (09:47→21:23)
[2022-03-05] MEDS: Calcium/Vitamin D TAB 250/125 TAB PO SCH (09:52)
[2022-03-05] MEDS ORDERED: Furosemide 20 mg/2 ml IV VIAL IV SLOW PU ONE (10:38)
[2022-03-05] MEDS: Fluticasone NASAL SPRAY 50MCG 16 gm SPRAY BTL BOTH NARES SCH (12:35)
[2022-03-05 13:02] LABS: Rapid COVID-19 Molecular Detected (Undetected)
[2022-03-06] MEDS: Albuterol HFA INHALER 8 gm MDI INH PRN (07:10)
[2022-03-06 07:43] VITALS: BP 142/62
[2022-03-06] MEDS: Enoxaparin 40 MG/0.4 ML SYR SUBCUT SCH (08:48)
[2022-03-06] MEDS: Insulin GLARGINE 100 un/ml 10 ml VIAL SUBCUT SCH (08:49)
[2022-03-06] MEDS: Fluticasone NASAL SPRAY 50MCG 16 gm SPRAY BTL BOTH NARES SCH (08:51)
[2022-03-06] MEDS: Calcium/Vitamin D TAB 250/125 TAB PO SCH (08:51)
== END 2022-03-06 11:50 | DRG 178 ==
LOC: EDHOLD 11:46 → ED 11:46 → MED 02-24 → SUATTDRO 02-25 11:00 → MED 02-27 15:50
PROVIDERS: ADMIT Internal Medicine; ATTEND Internal Medicine